=== PATIENT | male | born 1970 | race Caucasian/White ===

== ENCOUNTER → 2019-11-15 08:49 | Outpatient (BNVA) | payer OTHER, SELFPAY | PROVIDERS: Family Provider Nurse Practitioner Family; PCP Internal Medicine; Visit Provider Nurse Practitioner Family | DX: E88.9 Metabolic disorder, unspecified (principal); K92.1 Melena | CPT/HCPCS: 80053; 80061 ==

== ENCOUNTER 2019-11-16 08:37 | Day surgery (SDC) | payer OTHER, SELFPAY ==
[2019-11-15 10:48] VITALS: BMI 32.8
[2019-11-15 10:49] VITALS: BMI 31.8
[2019-11-16 08:53] VITALS: BMI 33.0
[2019-11-16 09:00] VITALS: BP 140/72; PULSE 74; RESP 16; TEMP 36.8; O2SAT 97
--- NOTE | 2019-11-16 09:06 | ANES.PREANES ---
Pre-Anesthetic Assessment Pre-Anesthetic Assessment: Height/Weight: Height 1.88 m Weight 116.573 kg Temp Pulse Resp BP Pulse Ox 98.2 F 74 16 140/72 97 11/16/19 09:00 11/16/19 09:00 11/16/19 09:00 11/16/19 09:00 11/16/19 09:00 Preop Diagnosis: hematachezia Proposed Procedure: Operation Date: 11/16/19 09:45 Proposed Procedures p Colonoscopy(Not Applicable) - David Stallworth MD Was Beta Nic taken within 24 hours: N/A Last intake: Intake Last Liquid Date 11/15/19 Last Liquid Time 22:00 Last Solid Date 11/14/19 Last Solid Time 21:30 Last Intake: 22:00 Social: Social History: No alcohol and No tobacco Exam: Pre-Anes Outpt Exam: alert, oriented x 3, clear to auscultation bilaterally and regular rate & rhythm Airway: Submandibular: WNL Cervical ROM: WNL MP: 1 Dentition: False (upper) Pulmonary: Pulmonary: Asthma Comments: breathing good today CV/HEM: CV/HEM: HTN and Murmur : : None reported Hepatic: Hepatic: None reported GI: GI: GERD Metabolic: Metabolic: None reported Musc/skel: Musc/skel: Lower Back Pain and OA/DJD Neuropsych: Neuropsych: Anxiety Anesthetic Plan: ASA status: II Anesthesia: Anesthesia Evaluation and MAC Risk of > 500 ml blood loss (7ml/kg in children): No PFSH Anesthesia PFSH: Surgical History (Updated 11/06/19 @ 15:13 by David Stallworth MD) H/O varicose vein stripping (Acute) Status post endovenous radiofrequency ablation (RFA) of saphenous vein (Acute) Social History Smoking and tobacco status: never smoked Alcohol intake: never Household members: spouse Housing: House Marital status: Current occupational status: employed Data Anesthesia Cardiac Studies: No Data to Display
[2019-11-16] MEDS: sodium chloride 0.9% 1,000 ML 30 ML (09:07)
--- NOTE | 2019-11-16 09:30 | PM.HPUD ---
H&P update H&P Update: DATE OF SURGERY/PROCEDURE: 11/16/19 DATE H&P PERFORMED: 11/06/19 H&P UPDATE INFORMATION: H&P completed within last 30 days, No changes to prior documentation and H&P is in [facility] [place] [facility] EMR on date indicated PLANNED PROCEDURE: Operation Date: 11/16/19 09:45 Proposed Procedures p Colonoscopy(Not Applicable) - David Stallworth MD Full H&P Perinent History: Family History: Family History (Updated 10/23/19 @ 13:04 by Debby Lamas LPN) Other Diabetes Heart disease Hypertension Social History: Social History Smoking and tobacco status: never smoked Alcohol intake: never Household members: spouse Housing: House Marital status: Current occupational status: employed
[2019-11-16 09:59] VITALS: BP 131/95; PULSE 86; RESP 18; TEMP 37.1; O2SAT 98
--- NOTE | 2019-11-16 10:01 | ANE.PACU ---
 Inpatient post-anesthesia follow up: Airway intact: Yes Vital signs: Temperature 98.2 F Pulse Rate [Apical ] 74 Respiratory Rate 16 Blood Pressure [Le ft Arm] 140/72 Pulse Oximetry 97 Oxygen Delivery Me thod Oxygen Flow Rate Fraction of Inspir ed Oxygen Hydration adequate: Yes Nausea and vomiting: No Pain level: 1 Mental status: Baseline
[2019-11-16 10:10] VITALS: BP 114/89; PULSE 79; RESP 18; O2SAT 96
== END 2019-11-16 10:35 | disposition home or self-care (01) ==
PROVIDERS: Family Provider Nurse Practitioner Family; PCP Internal Medicine; Visit Provider Internal Medicine
PROC: 0DJD8ZZ Inspection of Lower Intestinal Tract, Via Natural or Artificial Opening Endoscopic (ICD-10-PCS; CPT 45378; principal; 2019-11-16 09:45)
DX: K92.1 Melena (principal); K57.30 Diverticulosis of large intestine without perforation or abscess without bleeding; Z82.49 Family history of ischemic heart disease and other diseases of the circulatory system
CPT/HCPCS: 12345; 45378; 96365; J2704; J7030

== ENCOUNTER → 2019-12-27 13:39 | Outpatient (BNVA) | payer OTHER, SELFPAY | PROVIDERS: Family Provider Nurse Practitioner Family; PCP Internal Medicine; Visit Provider Nurse Practitioner Family | DX: I10 Essential (primary) hypertension (principal); E78.2 Mixed hyperlipidemia; R73.9 Hyperglycemia, unspecified; J45.20 Mild intermittent asthma, uncomplicated; J30.89 Other allergic rhinitis; E78.5 Hyperlipidemia, unspecified; M19.029 Primary osteoarthritis, unspecified elbow | CPT/HCPCS: 80053; 80061; 83036; 85025 ==

== ENCOUNTER → 2020-02-12 14:24 | Outpatient (BNVA) | payer OTHER, SELFPAY | PROVIDERS: Family Provider Nurse Practitioner Family; PCP Internal Medicine; Visit Provider Nurse Practitioner | DX: R19.7 Diarrhea, unspecified (principal) | CPT/HCPCS: 81000; 85025 ==

== ENCOUNTER → 2020-06-06 08:23 | Outpatient (BNVA) | payer OTHER, SELFPAY | PROVIDERS: Family Provider Nurse Practitioner Family; PCP Internal Medicine; Visit Provider Nurse Practitioner Family | DX: E78.2 Mixed hyperlipidemia (principal); I10 Essential (primary) hypertension | CPT/HCPCS: 80053; 80061; 85025 ==

== ENCOUNTER → 2020-07-17 11:15 | Outpatient (BNVA) | payer OTHER, SELFPAY | PROVIDERS: Family Provider Nurse Practitioner Family; PCP Internal Medicine; Visit Provider Nurse Practitioner Family | DX: Z20.828 Contact with and (suspected) exposure to other viral communicable diseases (principal) | CPT/HCPCS: 87635 ==

== ENCOUNTER → 2020-11-25 10:31 | Outpatient (BNVA) | payer OTHER, SELFPAY | PROVIDERS: Family Provider Nurse Practitioner Family; PCP Internal Medicine; Visit Provider Nurse Practitioner Family | DX: R07.9 Chest pain, unspecified (principal); G47.10 Hypersomnia, unspecified | CPT/HCPCS: 71046; 80053; 84484; 85025 ==

== ENCOUNTER 2020-12-31 08:06 | Outpatient (CLI) | payer OTHER, SELFPAY ==
[2020-12-31 08:28] VITALS: BMI 32.1
--- NOTE | 2020-12-31 08:42 | ECG_ITS ---
[facility] Test Date: 2020-12-31 Pat Name: Andre Cook Department: Room: Gender: Male Page Designer: : 1970 Requested By: Darryl Miller Order Number: [id number] Jose MD: Darryl Miller M.D. Interpretive Statements NAME OF STUDY: LEXISCAN SESTAMIBI STRESS TEST INDICATION: [Chest Pain; Pre Operative Clearance for Surgery] Procedure: At the baseline, the blood pressure was 145/92 mmHg, with a heart rate of 66 bpm. The electrocardiogram showed normal sinus rhythm, normal with normal ST and T waves. The Lexiscan was infused over a duration of 20 seconds. A total of 0.4 mg of Lexiscan was infused. The stress phase was continued for a total of 5 minutes. Heart rate at the end of stress phase was 92 bpm with a blood pressure 144/84mmHg. The EKG at the peak infusion revealed sinus rhythm with no significant ST-T wave changes. Sestamibi was injected 20 seconds after Lexiscan infusion. Blood pressure at the end of the recovery phase was 137/78 mmHg with a heart rate of 83 bpm. Conclusion: 1. Normal EKG response to Lexiscan infusion. 2. No Lexiscan induced chest pain or cardiac arrhythmia. 3. Normal blood pressure and heart rate response. 4. Sestamibi/sestamibi perfusion scan pending; see separate report. Electronically Signed On 01-04-2021 17:33:44 CDT by Darryl Miller M.D. [id number]
--- NOTE | 2020-12-31 08:43 | NMCV_ITS ---
NM malissa perf SPECT r/s* [id number] Joey Andre Age: 50 Gender: M : 1970 Exam Date: 12/31/2020 08:43 Ordering Phys: Darryl Miller M.D ([email or web address]) Technologist: JORGE LUIS Cox Exam Location: [facility] Indications: CHEST PAIN/ PRE OP SURGERY CLEARANCE STRESS TEST Please see separate stress test report in Ephiphany for full findings IMAGE PROTOCOL Rest/Stress 1 Lexiscan Day Radiopharmaceutical Dose (mCi) Administration Site Administered by Rest: Tc-99m 10.8 IV JORGE LUIS Cox Sestamibi Stress:Tc-99m 32.9 IV JORGE LUIS Kraus Sestamibi Rest: 31-Dec-2020 60 Discovery 630 Stress: 31-Dec-2020 30 Discovery 630 0.4mg Lexiscan. Images obtained in supine and prone position. SPECT RESULTS Technical Quality: Excellent Raw Data Analysis: Normal Image Corrections: No attenuation or motion correction applied Summed Stress Score: 0 Summed Rest Score: 5 Summed Difference Score: 0 PERFUSION FINDINGS There is reduced radiotracer uptake in apical wall on rest images that improves with stress. Likely attenuation artifact. FUNCTIONAL RESULTS (calculated via Gated SPECT) Stress Image LV EF (%): 70 Stress EDV (mL):153 TID: 1.07 Stress ESV (mL):46 FUNCTIONAL FINDINGS: There is normal left ventricular systolic function. IMPRESSIONS 1. Normal myocardial perfusion imaging. There is an attenuation artifact in the apical region 2. Normal LV systolic function Darryl Miller MD (Electronically Signed) Final Date: 31 December 2020 12:52 S
--- NOTE | 2020-12-31 10:00 | SUR.PREOP ---
Patient reports no pain or discomfort prior to the start of the procedure.
[2020-12-31] MEDS: regadenoson 0.4 Mg/5 ml Syringe IVP (10:10)
[2020-12-31 10:26] VITALS: BP 137/78; PULSE 80
--- NOTE | 2020-12-31 10:27 | ECG_ITS ---
[facility] Test Date: 2020-12-31 Pat Name: Andre Cook Department: Room: Gender: Male Director Emergency Services: : 1970 Requested By: Jerry Shabazz Order Number: [id number] Jose MD: Nancy Katz M.D. Measurements Intervals [place] Rate: 77 P: 51 TX: 167 QRS: 46 QRSD: 96 T: 63 QT: 387 QTc: 440 Interpretive Statements SINUS RHYTHM No previous ECG available for comparison Electronically Signed On 12-31-2020 19:00:48 KINDERGARTEN TEACHER by Nancy Katz M.D. [id number]
== END 2020-12-31 08:07 | disposition home or self-care (01) ==
LOC: CDL 08:08
PROVIDERS: Family Provider Nurse Practitioner Family; PCP Nurse Practitioner Family; Visit Provider Internal Medicine
DX: R07.9 Chest pain, unspecified (principal)
CPT/HCPCS: 78452; 93005; 93017; A9500; J2785

== ENCOUNTER → 2021-01-15 08:10 | Outpatient (BNVA) | payer OTHER, SELFPAY | PROVIDERS: Family Provider Nurse Practitioner Family; PCP Nurse Practitioner Family; Visit Provider Nurse Practitioner Family | DX: I10 Essential (primary) hypertension (principal); R73.9 Hyperglycemia, unspecified; E78.2 Mixed hyperlipidemia | CPT/HCPCS: 80053; 80061; 83036; 84443; 85025 ==

== ENCOUNTER 2021-01-27 15:00 | Outpatient (CLI) | payer OTHER, SELFPAY ==
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
== END 2021-01-27 15:01 | disposition home or self-care (01) ==
PROVIDERS: PCP Nurse Practitioner Family; Visit Provider Nurse Practitioner Family
DX: M79.605 Pain in left leg (principal); L53.9 Erythematous condition, unspecified; M79.89 Other specified soft tissue disorders
CPT/HCPCS: 73590; 93971

== ENCOUNTER 2021-02-17 09:23 | Outpatient (RCR) | payer OTHER, SELFPAY | END 2021-02-20 23:59 | disposition home or self-care (01) | LOC: SOT 09:23 | PROVIDERS: PCP Nurse Practitioner Family; Referring Provider Orthopaedic Surgery; Visit Provider Orthopaedic Surgery | DX: Z47.89 Encounter for other orthopedic aftercare (principal) | CPT/HCPCS: 97110; 97166 ==

== ENCOUNTER 2021-02-21 06:00 | Outpatient (RCR) | payer OTHER, SELFPAY | END 2021-03-23 23:59 | disposition home or self-care (01) | LOC: SOT 06:00 | PROVIDERS: PCP Nurse Practitioner Family; Referring Provider Orthopaedic Surgery; Visit Provider Orthopaedic Surgery | DX: Z47.89 Encounter for other orthopedic aftercare (principal) | CPT/HCPCS: 97035; 97110; 97140 ==

== ENCOUNTER 2021-03-24 06:00 | Outpatient (RCR) | payer OTHER, SELFPAY | END 2021-04-22 23:59 | disposition home or self-care (01) | LOC: SOT 06:00 | PROVIDERS: PCP Nurse Practitioner Family; Referring Provider Orthopaedic Surgery; Visit Provider Orthopaedic Surgery | DX: Z47.89 Encounter for other orthopedic aftercare (principal) | CPT/HCPCS: 97110; 97140; 97168 ==

== ENCOUNTER → 2021-04-06 15:09 | Outpatient (BNVA) | payer OTHER, SELFPAY | PROVIDERS: PCP Nurse Practitioner Family; Visit Provider Nurse Practitioner Family | DX: R50.9 Fever, unspecified (principal); Z20.822 Contact with and (suspected) exposure to COVID-19; J06.9 Acute upper respiratory infection, unspecified | CPT/HCPCS: 87400; 87635 ==

== ENCOUNTER 2021-04-09 13:59 | Emergency (ER) | payer OTHER, SELFPAY ==
[2021-04-09 14:14] VITALS: BP 118/56; PULSE 114; RESP 20; TEMP 38.7; O2SAT 96; BMI 33.3
--- NOTE | 2021-04-09 14:16 | XR_ITS ---
WS: [id number] Exam: XR chest 1V portable [id number] Date/Time of Exam: 04/09/2021 2:17 PM Reason For Exam: cough, fever, COVID + Comparison 11/25/2020. The lungs are fully expanded and clear. Normal cardiomediastinal structures and regional bony element s. Calcified granulomas scattered throughout both lungs. No pleural effusion. XR/XR chest 1V portable [id number] IMPRESSION: 1. No acute cardiopulmonary finding. No change.
[2021-04-09] MEDS: sodium chloride 0.9% 1,000 ML 999 ML IV (14:32)
[2021-04-09] MEDS: acetaminophen 500 mg Tablet 1000 MG PO (14:35)
[2021-04-09 14:55] LABS: Basophils % 0.1 %; Eosinophils % 0.1 %; Hematocrit 41.7 % (42.0-52.0); Hemoglobin 13.7 g/dL (11.7-16.6); Lymphocytes # 0.9 10^3/uL (0.8-4.8); Lymphocytes % 12.9 %; Mean Corpuscular HGB Conc 32.9 g/dL (30.0-36.0); Mean Corpuscular Hemoglobin 31.2 pg (28.0-34.0); Mean Platelet Volume 9.5 fL (7.4-10.4); Monocytes # 0.4 10^3/uL (0.2-0.9); Monocytes % 5.5 %; Neutrophils % 80.8 %; Nucleated Red Blood Cells % 0 %; Platelet Count 151 10^3/cmm (130-400); Red Blood Count 4.39 10^6/uL (4.1-5.3); Red Cell Distribution Width 12.4 % (12.1-15.1); White Blood Count 7.1 10^3/uL (4.0-10.0)
[2021-04-09 15:05] VITALS: RESP 24
[2021-04-09 15:09] VITALS: O2SAT 95
[2021-04-09 15:26] LABS: Alanine Aminotransferase 60 U/L (0-41); Albumin Level 3.5 g/dL (3.5-5.2); Alkaline Phosphatase 56 IU/L (40-130); Anion Gap 14.2 (5-19); Aspartate Amino Transferase 61 U/L (0-40); Blood Urea Nitrogen 8 mg/dL (6-20); C Reactive Protein 83.4 mg/L (0.0-4.9); Calcium 7.9 mg/dL (8.5-10.5); Carbon Dioxide 25 mmol/L (22-29); Chloride 102 mmol/L (98-107); Globulin 2.7 g/dL (1.3-4.6); Glomerular Filtration Rate 119.9 mL/min (90-130); Glucose 96 mg/dL (65-115); Osmolality Calculated 282 mOsm/kg (285-295); Potassium 4.2 mmol/L (3.5-5.1); Sodium 137 mmol/L (136-145); Total Bilirubin 0.6 mg/dL (0.15-1.2); Total Protein 6.2 g/dL (6.6-8.7)
[2021-04-09 15:27] LABS: Lactic Sepsis W/Reflex 1.6 mmol/L (0.5-2.2)
[2021-04-09 15:33] LABS: Procalcitonin 0.05 ng/mL (0-0.5)
[2021-04-09 15:40] LABS: Ferritin 1755 ng/mL (30-400)
[2021-04-09 16:05] VITALS: BP 112/80; PULSE 98; O2SAT 96
[2021-04-09 17:00] VITALS: BP 112/64; PULSE 101; RESP 15; O2SAT 100
[2021-04-09 17:06] LABS: D Dimer 0.69 ug/mIFEU (0-0.59)
--- NOTE | 2021-04-09 17:12 | W.ED.COVID ---
HPI - COVID General: Chief Complaint: COVID symptoms Stated Complaint: COVID POSITIVE/ FEVER Time Seen by Provider: 04/09/21 14:03 Source: patient Mode of arrival: EMS Limitations: no limitations Triage information: Has fever, cough or shortness of breath. Exposure to COVID + person last 14 days History of Present Illness: HPI Narrative: Patient is a 51-year-old male with a history of hypertension who presents to the emergency department with a 5-day history of fever, cough, and mild shortness of breath. 4 days ago he got tested for COVID-19 and he received the results that showed he tested positive. He denies any nausea or vomiting. He has been using his albuterol and he says that helps. Appetite is only mildly reduced and he is still eating. MD complaint: known COVID positive Prior covid testing: yes, results known Prior testing date: 04/06/21 COVID 19 common symptoms: positive fever(s), cough, non-productive cough, dyspnea, loss of sense of smell and/or taste and nasal congestion; negative chills, productive cough, fatigue, body aches, headache(s), throat pain, nausea, vomiting or diarrhea COVID 19 other sytmptoms: negative chest pressure, chest pain, pleuritic pain, requiring oxygen, requiring more oxygen, respiratory distress, cyanosis, lethargy, confusion, new neurological complaints or other concerning symptoms Onset (ago): day(s) (5) Severity: mild Pertinent comorbid conditions: hypertension Treatment prior to arrival: breathing treatments COVID Results: SARS-CoV-2 RNA (RT-PCR) Detected (NOT DETECTED) A 04/06/21 15:09 04/06/21 Review of Systems General: Reports: 10 or more systems reviewed and unremarkable except in HPI and below Const: Reports: fever(s); Denies: chills, body aches or fatigue ENMT: Reports: nasal congestion; Denies: throat pain Card: Denies: chest pain Resp: Reports: dyspnea and non-productive cough; Denies: productive cough GI: Denies: nausea, vomiting or diarrhea Neuro: Denies: headache(s) or confusion PFS ED PFSH: Medical History (Reviewed 04/09/21 @ 23:19 by Papi Cornejo MD, [facility]) Cervical spinal stenosis Diverticulitis Elbow arthritis Environmental and seasonal allergies Essential (primary) hypertension GERD (gastroesophageal reflux disease) Hyperlipidemia Lumbar disc disease with radiculopathy Mild intermittent asthma Surgical History (Reviewed 04/09/21 @ 23:19 by Papi Cornejo MD, [facility]) H/O oral surgery H/O varicose vein stripping History of ankle surgery S/P vasectomy Status post endovenous radiofrequency ablation (RFA) of saphenous vein Family History (Reviewed 04/09/21 @ 23:19 by Papi Cornejo MD, [facility]) Other Diabetes Heart disease Hypertension Social History (Reviewed 04/09/21 @ 23:19 by Papi Cornejo MD, [facility] [place]) Smoking and tobacco status: never smoked Alcohol intake: never Adopted: No Household members: spouse Housing: House Marital status: Number of children: 2 Highest education level completed: High School Graduate Current occupational status: employed Pets and animals: Yes History of recent travel: No Current gender identity: Male Physical Exam Const: COMMON NORMALS: no acute distress, average body habitus, patient oriented x3, no limitations, healthy appearing, alert and well nourished HENMT: COMMON NORMALS: normocephalic, atraumatic and moist oral mucous membranes HEAD & SCALP: normocephalic and atraumatic Eye: COMMON NORMALS: Equal, round and reactive pupils present, EOMs intact bilaterally, conjunctivae normal and no scleral icterus CONJUNCTIVA: Yes conjunctivae normal PUPIL: Yes Equal, round and reactive pupils present Neck/C-Spine: COMMON NORMALS: no meningeal signs and no JVD Chest: COMMONS NORMALS: normal inspection of the chest and normal palpation of entire chest wall Resp: COMMON NORMALS: normal respiratory effort, No retractions, No use of accessory muscles, clear to auscultation bilaterally and percussion normal AUSCULTATION: clear to auscultation bilaterally PERCUSSION: percussion normal Cardio: COMMON NORMALS: no JVD, regular rhythm, S1 normal heart sound present, S2 normal heart sound present, No gallops present (Cardio), No clicks present (Cardio), No murmurs present (Cardio), No rub (Cardio) and Peripheral pulses 2+ throughout RATE: tachycardic RHYTHM: regular rhythm HEART SOUNDS: S1 normal heart sound present and S2 normal heart sound present PERIPHERAL PULSES: Peripheral pulses 2+ throughout GI: COMMON NORMALS: Normal to inspection, nondistended, normoactive bowel sounds present, Soft to palpation, non-tender, No hepatosplenomegaly present, no masses and no bruits PALPATION: Yes Soft to palpation and Yes No hepatosplenomegaly present Extremity: COMMON NORMALS: normal to inspection, full ROM, capillary refill normal, no calf tenderness and no pedal edema Neuro: COMMON NORMALS: patient oriented x3 SENSORIUM/ORIENTATION: Yes alert MENINGEAL SIGNS: Yes no meningeal signs Skin: COMMON NORMALS: no rashes or lesions noted, no wounds, turgor normal, no jaundice, no petechiae and no mottling GENERAL SKIN EXAM: no rashes or lesions noted and turgor normal Course Reevaluation(s): Reevaluation #1: Discussed his lab and imaging findings with him. Labs unremarkable, white cell count is normal, D-dimer only mildly elevated, ferritin level is elevated, chest x-ray without any significant findings. Oxygen saturation has been normal throughout his ED stay and he is not requiring oxygen. He will therefore be discharged home. He does not meet the criteria for monoclonal antibody treatments. Patient is advised to be monitoring his pulse oximetry and he is to return if he has any worsening symptoms or if he is persistently hypoxic. He voiced understanding and is in agreement with the plan. Time: 17:21 Vital Signs: Vital signs: Vital Signs Temperature 101.6 F H 04/09/21 14:14 Pulse Rate 101 H 04/09/21 17:32 Respiratory Rate 15 04/09/21 17:32 Blood Pressure 112/64 04/09/21 17:32 Pulse Oximetry 100 04/09/21 17:32 MDM - COVID MDM Narrative: Medical decision making narrative: 51-year-old male who tested positive for COVID-19 4 days ago. His symptoms started 1 day before that. Evaluation in the emergency department is unremarkable and he has no signs of decompensation. Oxygen saturation has been normal, he is not requiring oxygen supplementation. He does not meet criteria for monoclonal antibody treatments. He is discharged home with a pulse oximeter but no medications. He is to return for any worsening symptoms especially persistent hypoxia. Medical Records: Attestation: I reviewed the patient's medical records. Lab Data: Attestation: I reviewed the patient's lab results. Labs: Lab Results 04/09/21 04/09/2104/09/21 Range/Units 14:45 14:45 14:45 WBC 7.1 (4.0-10.0) 10^3/ uL RBC 4.39 (4.1-5.3) 10^6/u L Hgb 13.7 (11.7-16.6) g/dL Hct 41.7 L (42.0-52.0) % MCV 95.0 H (80-94) fL MCH 31.2 (28.0-34.0) pg MCHC 32.9 (30.0-36.0) g/dL RDW 12.4 (12.1-15.1) % Plt Count 151 (130-400) 10^3/c mm MPV 9.5 (7.4-10.4) fL Neut % (Auto) 80.8 % Lymph % (Auto) 12.9 % [place] % (Auto) 5.5 % Eos % (Auto) 0.1 % Baso % (Auto) 0.1 % Neut # (Auto) 5.70 (1.8-7.7) 10^3/u L Lymph # (Auto) 0.9 (0.8-4.8) 10^3/u L [place] # (Auto) 0.4 (0.2-0.9) 10^3/u L Eos # (Auto) 0.0 (0.0-0.8) 10^3/u L Baso # (Auto) 0.0 (0.0-0.1) 10^3/u L Nucleated RBC % (a uto) 0 % Nucleated RBCs # 0.0 /100WBC D-Dimer (0-0.59) ug/mIFE U Sodium 137 (136-145) mmol/L Potassium 4.2 (3.5-5.1) mmol/L Chloride 102 (98-107) mmol/L Carbon Dioxide 25 (22-29) mmol/L Anion Gap 14.2 (5-19) BUN 8 (6-20) mg/dL Creatinine 0.7 (0.7-1.2) mg/dL GFR Calculation 119.9 (90-130) mL/min Glucose 96 (65-115) mg/dL Calculated Osmolal ity 282 L (285-295) mOsm/k g Lactic Acid 1.6 (0.5-2.2) mmol/L Calcium 7.9 L (8.5-10.5) mg/dL Ferritin 1755 H (30-400) ng/mL Total Bilirubin 0.6 (0.15-1.2) mg/dL AST 61 H (0-40) U/L ALT 60 H (0-41) U/L Alkaline Phosphata se 56 (40-130) IU/L C-Reactive Protein 83.4 H (0.0-4.9) mg/L Total Protein 6.2 L (6.6-8.7) g/dL Albumin 3.5 (3.5-5.2) g/dL Globulin 2.7 (1.3-4.6) g/dL Procalcitonin 0.05 (0-0.5) ng/mL 04/09/21 Range/Units 16:13 WBC (4.0-10.0) 10^3/ uL RBC (4.1-5.3) 10^6/u L Hgb (11.7-16.6) g/dL Hct (42.0-52.0) % MCV (80-94) fL MCH (28.0-34.0) pg MCHC (30.0-36.0) g/dL RDW (12.1-15.1) % Plt Count (130-400) 10^3/c mm MPV (7.4-10.4) fL Neut % (Auto) % Lymph % (Auto) % [place] % (Auto) % Eos % (Auto) % Baso % (Auto) % Neut # (Auto) (1.8-7.7) 10^3/u L Lymph # (Auto) (0.8-4.8) 10^3/u L [place] # (Auto) (0.2-0.9) 10^3/u L Eos # (Auto) (0.0-0.8) 10^3/u L Baso # (Auto) (0.0-0.1) 10^3/u L Nucleated RBC % (a uto) % Nucleated RBCs # /100WBC D-Dimer 0.69 H (0-0.59) ug/mIFE U Sodium (136-145) mmol/L Potassium (3.5-5.1) mmol/L Chloride (98-107) mmol/L Carbon Dioxide (22-29) mmol/L Anion Gap (5-19) BUN (6-20) mg/dL Creatinine (0.7-1.2) mg/dL GFR Calculation (90-130) mL/min Glucose (65-115) mg/dL Calculated Osmolal ity (285-295) mOsm/k g Lactic Acid (0.5-2.2) mmol/L Calcium (8.5-10.5) mg/dL Ferritin (30-400) ng/mL Total Bilirubin (0.15-1.2) mg/dL AST (0-40) U/L ALT (0-41) U/L Alkaline Phosphata se (40-130) IU/L C-Reactive Protein (0.0-4.9) mg/L Total Protein (6.6-8.7) g/dL Albumin (3.5-5.2) g/dL Globulin (1.3-4.6) g/dL Procalcitonin (0-0.5) ng/mL Imaging Data: CXR: Attestation: I personally reviewed and interpreted this imaging study as follows: Radiologist's impression: [address] [id number] ReportSigned Patient: Andre Cook #: [id number]: 1970Acct#:[id number]/Sex: 51 / MADM Date: 04/09/21Loc: ERRoom/Bed:Attending Dr: Ordering Provider/Ordering MD: Papi Cornejo MD, [facility] [place] Date of Service: 04/09/21 Procedure(s): XR chest 1V portable [id number] Accession Number(s): [id number] Report Number: [id number] WS: [id number] Exam: XR chest 1V portable [id number] Date/Time of Exam: 04/09/2021 2:17 PM Reason For Exam: cough, fever, COVID + Comparison 11/25/2020. The lungs are fully expanded and clear. Normal cardiomediastinal structures and regional bony elements. Calcified granulomas scattered throughout both lungs. No pleural effusion. XR/XR chest 1V portable [id number] IMPRESSION: 1. No acute cardiopulmonary finding. No change. Dictated By:Kenan Macias, DOSigned By:Kenan Macias, DOSigned Date/Time:04/09/21 1437DD/ 1436 COVID Results: SARS-CoV-2 RNA (RT-PCR) Detected (NOT DETECTED) A 04/06/21 15:09 04/06/21 Discharge Plan Discharge Patient Disposition: Home Clinical Impression: COVID-19 Condition: Stable Prescriptions: Continued montelukast [Singulair] 10 mg tablet 10 mg PO DAILY 30 Days Qty: 30 RF: 5 meloxicam 15 mg tablet 15 mg PO DAILY 30 Days Qty: 30 RF: 5 irbesartan 150 mg tablet 150 mg PO DAILY 30 Days Qty: 30 RF: 5 cetirizine [Zyrtec] 10 mg tablet 10 mg PO DAILY 30 Days Qty: 30 RF: 5 Symbicort 160-4.5 mcg/actuation HFA aerosol inhaler 2 puff INHALATION BID 30 Days Qty: 6 RF: 5 atorvastatin [Lipitor] 10 mg tablet 10 mg PO DAILY 30 Days Qty: 30 RF: 5 albuterol sulfate [ProAir HFA] 90 mcg/actuation HFA aerosol inhaler 2 puff INHALATION Q6H PRN (Reason: Shortness Of Breath) 30 Days Qty: 6.7 RF: 5 albuterol sulfate 2.5 mg /3 mL (0.083 %) solution for nebulization 2.5 mg INHALATION Q4H PRN (Reason: shortness of breath or wheezing) 30 Days Qty: 75 RF: 5 Prilosec OTC 20 mg tablet,delayed release (DR/EC) 20 mg PO DAILY RF: 0 loperamide 2 mg capsule 2 mg PO Q3H PRN (Reason: loose stool) Qty: 8 RF: 0 nitroglycerin 0.4 mg tablet, sublingual 0.4 mg sublingual Q5M PRN (Reason: chest pain) 30 Days Qty: 30 RF: 2 promethazine-DM 6.25-15 mg/5 mL syrup 5 ml PO Q6H PRN (Reason: cough) Qty: 118 RF: 0 Theraflu Cold-Cough See Rx Instructions .ROUTE .COMPLEX RF: 0 multivitamin 1 tab PO DAILY RF: 0 Discharge Orders: Discharge ED (Routine); Ordered 04/09/21 Ordered By: Papi Cornejo Referrals: Kerline Delgado FNP-C [Primary Care Provider] - 1-3 days Discharge Diet: Usual diet Discharge Activity: Increase activity as tolerated Patient Instructions: Viral Syndrome (ED) Activity Restrictions/Additional Instructions: Return for any new or worsening symptoms. Follow-up with your primary care provider within 3 days. He should follow-up by telemedicine. He needs to quarantine for 10 days from symptom onset. If you feel worsening shortness of breath or if your oxygen levels fall below 90% please return to be evaluated. Continue home medications. Coding Level of Care Code ED Supplier Quality Manager for Nithya Calhoun
[2021-04-09 17:32] VITALS: BP 112/64; PULSE 101; RESP 15; O2SAT 100
== END 2021-04-09 17:33 | disposition home or self-care (01) ==
PROVIDERS: Emergency Provider Family Medicine; PCP Nurse Practitioner Family
DX: U07.1 COVID-19 (principal); I10 Essential (primary) hypertension; E78.5 Hyperlipidemia, unspecified
CPT/HCPCS: 71045; 80053; 82728; 83605; 84145; 85025; 85378; 86140; 96360; 99284; J7030

== ENCOUNTER 2021-04-11 13:40 | Inpatient (IN) | payer OTHER, SELFPAY ==
[2021-04-11] VITALS (75 sets, daily range): BP systolic 107–151; BP diastolic 61–104; PULSE 86–119; RESP 15–62; TEMP 37.3; O2SAT 82–96; BMI 33.3
--- NOTE | 2021-04-11 14:08 | XRR_ITS ---
PROCEDURE INFORMATION: Exam: XR Chest Exam date and time: 04/11/2021 2:08 PM Age: 51 years old Clinical indication: Shortness of breath; Additional info: SOB, hypoxia, covid positive TECHNIQUE: Imaging protocol: XR of the chest. Views: 1 view. COMPARISON: CR XR chest 1V portable [id number] 04/09/2021 2:20 PM FINDINGS: Lungs: Bilateral patchy pulmonary opacities. There are pulmonary parenchymal calcifications consistent with remote granulomatous organism exposure. Pleural spaces: Unremarkable. No pleural effusion. No pneumothorax. Heart/Mediastinum: Unremarkable. No cardiomegaly. Bones/joints: Unremarkable. XR/XR chest 1V portable [id number] IMPRESSION: There are bilateral patchy pulmonary opacities, consistent with pneumonia.
[2021-04-11] MEDS: dexamethasone 4 mg/mL INJ 6 MG IVP ×2 (14:15→19:58)
[2021-04-11 14:24] LABS: ABG PCO2 32.5 mmHg (35-45); ABG PH Result 7.48 (7.35-7.45); Arterial Blood Gas Hematocrit 42.4 % (42-52); Base Excess ABG 0.9 mmol/L (-2.0-2.0); Blood Gas Allen Test Pos; Blood Gas Sample Type Arterial; HCO3 ABG 23.9 mmol/L (22-26); PO2 ABG 46.6 mmHg (80.0-100.0)
[2021-04-11 14:25] LABS: Blood Gas Operator Identificat CAK; Blood Gas Sample Site Radial, left; Oxygen Device NC
[2021-04-11 15:15] LABS: D Dimer 2.01 ug/mIFEU (0-0.59)
--- NOTE | 2021-04-11 15:29 | CTR_ITS ---
PROCEDURE INFORMATION: Exam: CTA Chest With Contrast Exam date and time: 04/11/2021 3:29 PM Age: 51 years old Clinical indication: Shortness of breath; Additional info: Hypoxia, SOB, covid TECHNIQUE: Imaging protocol: Computed tomographic angiography of the chest with contrast. 3D rendering (Not supervised by radiologist): MIP and/or 3D reconstructed images were created by the technologist. Radiation optimization: All CT scans at this facility use at least one of these dose optimization techniques: automated exposure control; mA and/or kV adjustment per patient size (includes targeted exams where dose is matched to clinical indication); or iterative reconstruction. Contrast material: OMNIPAQUE 350; Contrast volume: 77 ml; Contrast route: INTRAVENOUS (IV); COMPARISON: CT chest w con* [id number] 01/04/2018 7:09 PM RADIATION DOSE METRICS: Total DLP (mGy-cm): 615.51 FINDINGS: Pulmonary arteries: Normal. No pulmonary emboli. Aorta: Unremarkable. No aortic aneurysm. No aortic dissection. Lungs: Fairly widespread ground-glass attenuation opacities filling alveolar spaces bilaterally. Small scattered areas of pulmonary parenchymal sparing. Negative for endobronchial obstruction. Areas of crazy paving are present. No interstitial fibrosis. No peripheral honeycombing. Pleural spaces: Unremarkable. No pneumothorax. No pleural effusion. Heart: Unremarkable. No cardiomegaly. No pericardial effusion. Lymph nodes: Unremarkable. No enlarged lymph nodes. Bones/joints: Unremarkable. No acute fracture. Soft tissues: Unremarkable. CT/CT angio chest PE protcl [id number] IMPRESSION: 1. Negative for pulmonary embolism. 2. Widespread bilateral airspace disease. 3. Commonly reported imaging features of COVID-19 pneumonia are present. Other processes such as influenza pneumonia and organizing pneumonia, as can be seen with drug toxicity and connective tissue disease, can cause a similar imaging pattern. (Reference: Kentrell) REFERENCES: Kentrell Lynch, et al., Radiological Society of [place] Expert Consensus Statement on Reporting Chest CT Findings Related to COVID-19. Endorsed by the Society of Thoracic Radiology, the [place] [employer], and RSNA. Published January 16, 2020. Radiation Dose CTDIVOL = (mGy): DLP = 615.51 (mGy-cm)
[2021-04-11] MEDS: remdesivir 200 MG in sodium chloride 0.9% (100 ml) 100 ML 100 MG IV (15:30)
[2021-04-11 15:31] LABS: Lactic Sepsis W/Reflex 1.4 mmol/L (0.5-2.2)
[2021-04-11 15:41] LABS: NT Pro B Type Natriuretic Pept 173 pg/mL (0-125); Procalcitonin 0.05 ng/mL (0-0.5)
[2021-04-11 15:52] LABS: Alanine Aminotransferase 50 U/L (0-41); Albumin Level 3.2 g/dL (3.5-5.2); Alkaline Phosphatase 63 IU/L (40-130); Blood Urea Nitrogen 9 mg/dL (6-20); C Reactive Protein 171.3 mg/L (0.0-4.9); Calcium 7.7 mg/dL (8.5-10.5); Carbon Dioxide 23 mmol/L (22-29); Chloride 104 mmol/L (98-107); Globulin 3.1 g/dL (1.3-4.6); Glomerular Filtration Rate 119.9 mL/min (90-130); Glucose 116 mg/dL (65-115); Osmolality Calculated 286 mOsm/kg (285-295); Sodium 138 mmol/L (136-145); Total Protein 6.3 g/dL (6.6-8.7)
[2021-04-11 15:53] LABS: Anion Gap 15.8 (5-19); Aspartate Amino Transferase 66 U/L (0-40)
[2021-04-11 15:54] LABS: Potassium 4.8 mmol/L (3.5-5.1)
[2021-04-11 16:09] LABS: Ferritin 2387 ng/mL (30-400)
--- NOTE | 2021-04-11 16:12 | ED_ITS ---
HPI - COVID General: Chief Complaint: COVID symptoms Stated Complaint: COVID +; LOW O2 SATS Time Seen by Provider: 04/11/21 13:45 Source: patient Mode of arrival: ambulatory Limitations: no limitations Triage information: Has fever, cough or shortness of breath . Exposure to COVID + person last 14 days History of Present Illness: HPI Narrative: Patient is a 51 year old male who was recently diagnosed with COVID 19. Symptoms started about 7 days ago with fever, cough, body aches. He was seen in the ED 2 days ago, and at that time he was clinically stable, and not hypoxic and not requiring oxygen. He has been doing well until today when he developed severe shortness of breath. He therefore called for an ambulance and when the EMS crew arrived he was hypoxic and required oxygen at 4 lpm. In the ED he was about 84 % on 4 lpm and he was placed on 6 lpm. He continues to be short of breath, febrile, has body aches and feels very unwel ileana DEUTSCH complaint: known COVID positive Prior covid testing: yes, results known COVID 19 common symptoms: positive fever(s), chills, cough, dyspnea, body aches, loss of sense of smell and/or taste and nasal congestion COVID 19 other sytmptoms: positive requiring oxygen Onset (ago): week(s) (1) Severity: severe Pertinent comorbid conditions: hypertension COVID Results: SARS-CoV-2 RNA (RT-PCR) Detected (NOT DETECTED) A 04/06/21 15:09 04/06/21 Review of Systems General: Reports: 10 or more systems reviewed and unremarkable except in HPI and below Const: Reports: fever(s), chills and body aches ENMT: Reports: nasal congestion Resp: Reports: dyspnea [facility] ED PFSH: Medical History (Updated 04/12/21 @ 00:57 by Papi Cornejo MD, [facility] [place]) Acute carpal tunnel syndrome of left wrist Cervical spinal stenosis Diverticulitis Elbow arthritis Environmental and seasonal allergies Essential (primary) hypertension GERD (gastroesophageal reflux disease) Hyperlipidemia Hypertension Left inguinal hernia Lumbar disc disease with radiculopathy Mild intermittent asthma Surgical History (Updated 04/11/21 @ 17:34 by Osmar Stout MD) H/O oral surgery H/O varicose vein stripping History of ankle surgery History of decompression of ulnar nerve Hx of carpal tunnel repair S/P vasectomy Status post endovenous radiofrequency ablation (RFA) of saphenous vein Family History Other Diabetes Heart disease Hypertension Social History Smoking and tobacco status: never smoked Alcohol intake: never Adopted: No Household members: spouse Housing: House Marital status: Number of children: 2 Highest education level completed: High School Graduate Current occupational status: employed Pets and animals: Yes History of recent travel: No Current gender identity: Male Physical Exam Const: COMMON NORMALS: no acute distress, average body habitus, patient oriented x3, no limitations, healthy appearing, alert and well nourished HENMT: COMMON NORMALS: normocephalic, atraumatic and moist oral mucous membranes HEAD & SCALP: normocephalic and atraumatic Neck/C-Spine: COMMON NORMALS: no meningeal signs and no JVD Resp: COMMON NORMALS: normal respiratory effort, No retractions, No use of accessory muscles and percussion normal AUSCULTATION: rales and diminished lung sounds PERCUSSION: percussion normal Cardio: COMMON NORMALS: no JVD, regular rate, regular rhythm, S1 normal heart sound present, S2 normal heart sound present, No gallops present (Cardio), No clicks present (Cardio), No murmurs present (Cardio), No rub (Cardio) and Peripheral pulses 2+ throughout RATE: regular rate RHYTHM: regular rhythm HEART SOUNDS: S1 normal heart sound present and S2 normal heart sound present PERIPHERAL PULSES: Peripheral pulses 2+ throughout GI: COMMON NORMALS: Normal to inspection, nondistended, normoactive bowel sounds present, Soft to palpation, non-tender, No hepatosplenomegaly present, no masses and no bruits PALPATION: Yes Soft to palpation and Yes No hepatosplenomegaly present Extremity: COMMON NORMALS: normal to inspection, full ROM, capillary refill normal, no calf tenderness and no pedal edema Neuro: COMMON NORMALS: patient oriented x3 SENSORIUM/ORIENTATION: Yes alert MENINGEAL SIGNS: Yes no meningeal signs Skin: COMMON NORMALS: no rashes or lesions noted, no wounds, turgor normal, no jaundice, no petechiae and no mottling GENERAL SKIN EXAM: no rashes or lesions noted and turgor normal Course Reevaluation(s): Reevaluation #1: Discussed his lab and imaging findings with him. Explained that he is worsening and x-ray and CT scan findings show significant lung disease. He is not hypoxic and requiring oxygen supplementation. He will therefore benefit from hospital admission for further evaluation and management. He voiced understanding and is in agreement with the plan. Time: 17:10 Consultations: Consultation #1: Discussed the patient with Dr. Abdul, hospitalist and he kindly accepted the patient to his service. Time: 17:15 Vital Signs: Vital signs: Vital Signs Temperature 99.0 F 04/12/21 00:05 Pulse Rate 83 04/12/21 00:35 Respiratory Rate 23 H 04/12/21 00:35 Blood Pressure 141/81 04/12/21 00:35 Pulse Oximetry 91 04/12/21 00:35 MDM - COVID MDM Narrative: Medical decision making narrative: 51-year-old male with COVID- 19. Symptoms have been going on for about 1 week now. He was seen in this emergency department 2 days ago and in the last 2 days he has been significantly declining. He is now hypoxic and in acute respiratory failure requiring oxygen supplementation via heated high flow oxygen. He is admitted to the hospital for further evaluation and management. Medical Records: Attestation: I reviewed the patient's medical records. Lab Data: Attestation: I reviewed the patient's lab results. Labs: Lab Results 04/11/21 04/11/21 04/11/21 Range/Units 14:12 14:50 14:50 WBC Cancelled Corrected WBC Cancelled RBC Cancelled Hgb Cancelled Hct Cancelled MCV Cancelled MCH Cancelled MCHC Cancelled RDW Cancelled Plt Count Cancelled MPV Cancelled Gran % Cancelled Neut % (Auto) Cancelled Lymph % (Auto) Cancelled [place] % (Auto) Cancelled Eos % (Auto) Cancelled Baso % (Auto) Cancelled Neut # (Auto) Cancelled Lymph # (Auto) Cancelled [place] # (Auto) Cancelled Eos # (Auto) Cancelled Baso # (Auto) Cancelled Absolute Gran (aut o) Cancelled Nucleated RBC % (a uto) Cancelled Nucleated RBCs # Cancelled D-Dimer 2.01 H (0-0.59) ug/mIFE U Specimen Type Arterial Sample Site Radial, left ABG pH 7.48 H (7.35-7.45) ABG pCO2 32.5 L (35-45) mmHg ABG pO2 46.6 L (80.0-100.0) mmH g ABG HCO3 23.9 (22-26) mmol/L ABG Base Excess 0.9 (-2.0-2.0) mmol/ L Killian Test Pos Hematocrit 42.4 (42-52) % O2 Delivery Device Nc O2 Liters/Min 6.0 % Silver Miner ID Cak Sodium (136-145) mmol/L Potassium (3.5-5.1) mmol/L Chloride (98-107) mmol/L Carbon Dioxide (22-29) mmol/L Anion Gap (5-19) BUN (6-20) mg/dL Creatinine (0.7-1.2) mg/dL GFR Calculation (90-130) mL/min Glucose (65-115) mg/dL Calculated Osmolal ity (285-295) mOsm/k g Lactic Acid (0.5-2.2) mmol/L Calcium (8.5-10.5) mg/dL Iron (59-158) ug/dL TIBC mcg/dl % Saturation (20-50) % Unsat Iron Binding (112-347) ug/dL Ferritin (30-400) ng/mL Total Bilirubin (0.15-1.2) mg/dL AST (0-40) U/L ALT (0-41) U/L Alkaline Phosphata se (40-130) IU/L C-Reactive Protein (0.0-4.9) mg/L NT-Pro-B Natriuret Pep (0-125) pg/mL Total Protein (6.6-8.7) g/dL Albumin (3.5-5.2) g/dL Globulin (1.3-4.6) g/dL Procalcitonin (0-0.5) ng/mL TSH (0.27-4.20) uIU/ mL 04/11/21 04/11/21 04/11/21 Range/Units 14:50 14:50 14:50 WBC Corrected WBC RBC Hgb Hct MCV MCH MCHC RDW Plt Count MPV Gran % Neut % (Auto) Lymph % (Auto) [place] % (Auto) Eos % (Auto) Baso % (Auto) Neut # (Auto) Lymph # (Auto) [place] # (Auto) Eos # (Auto) Baso # (Auto) Absolute Gran (aut o) Nucleated RBC % (a uto) Nucleated RBCs # D-Dimer (0-0.59) ug/mIFE U Specimen Type Sample Site ABG pH (7.35-7.45) ABG pCO2 (35-45) mmHg ABG pO2 (80.0-100.0) mmH g ABG HCO3 (22-26) mmol/L ABG Base Excess (-2.0-2.0) mmol/ L Killian Test Hematocrit (42-52) % O2 Delivery Device O2 Liters/Min % Silver Miner ID Sodium 138 (136-145) mmol/L Potassium 4.8 (3.5-5.1) mmol/L Chloride 104 (98-107) mmol/L Carbon Dioxide 23 (22-29) mmol/L Anion Gap 15.8 (5-19) BUN 9 (6-20) mg/dL Creatinine 0.7 (0.7-1.2) mg/dL GFR Calculation 119.9 (90-130) mL/min Glucose 116 H (65-115) mg/dL Calculated Osmolal ity 286 (285-295) mOsm/k g Lactic Acid 1.4 (0.5-2.2) mmol/L Calcium 7.7 L (8.5-10.5) mg/dL Iron 15 L (59-158) ug/dL TIBC 177 mcg/dl % Saturation 8.4 L (20-50) % Unsat Iron Binding 162 (112-347) ug/dL Ferritin 2387 H (30-400) ng/mL Total Bilirubin 1.0 (0.15-1.2) mg/dL AST 66 H (0-40) U/L ALT 50 H (0-41) U/L Alkaline Phosphata se 63 (40-130) IU/L C-Reactive Protein 171.3 H (0.0-4.9) mg/L NT-Pro-B Natriuret Pep 173 H (0-125) pg/mL Total Protein 6.3 L (6.6-8.7) g/dL Albumin 3.2 L (3.5-5.2) g/dL Globulin 3.1 (1.3-4.6) g/dL Procalcitonin 0.05 0.05 (0-0.5) ng/mL TSH 0.42 (0.27-4.20) uIU/ mL 04/11/21 Range/Units 17:06 WBC 13.6 H Corrected WBC RBC 4.39 Hgb 13.8 Hct 40.6 L MCV 92.5 MCH 31.4 MCHC 34.0 RDW 12.1 Plt Count 130 MPV 9.6 Gran % Neut % (Auto) 95.3 Lymph % (Auto) 2.6 [place] % (Auto) 1.6 Eos % (Auto) 0.0 Baso % (Auto) 0.1 Neut # (Auto) 12.95 H Lymph # (Auto) 0.4 L [place] # (Auto) 0.2 Eos # (Auto) 0.0 Baso # (Auto) 0.0 Absolute Gran (aut o) Nucleated RBC % (a uto) 0 Nucleated RBCs # 0.0 D-Dimer (0-0.59) ug/mIFE U Specimen Type Sample Site ABG pH (7.35-7.45) ABG pCO2 (35-45) mmHg ABG pO2 (80.0-100.0) mmH g ABG HCO3 (22-26) mmol/L ABG Base Excess (-2.0-2.0) mmol/ L Killian Test Hematocrit (42-52) % O2 Delivery Device O2 Liters/Min % Silver Miner ID Sodium (136-145) mmol/L Potassium (3.5-5.1) mmol/L Chloride (98-107) mmol/L Carbon Dioxide (22-29) mmol/L Anion Gap (5-19) BUN (6-20) mg/dL Creatinine (0.7-1.2) mg/dL GFR Calculation (90-130) mL/min Glucose (65-115) mg/dL Calculated Osmolal ity (285-295) mOsm/k g Lactic Acid (0.5-2.2) mmol/L Calcium (8.5-10.5) mg/dL Iron (59-158) ug/dL TIBC mcg/dl % Saturation (20-50) % Unsat Iron Binding (112-347) ug/dL Ferritin (30-400) ng/mL Total Bilirubin (0.15-1.2) mg/dL AST (0-40) U/L ALT (0-41) U/L Alkaline Phosphata se (40-130) IU/L C-Reactive Protein (0.0-4.9) mg/L NT-Pro-B Natriuret Pep (0-125) pg/mL Total Protein (6.6-8.7) g/dL Albumin (3.5-5.2) g/dL Globulin (1.3-4.6) g/dL Procalcitonin (0-0.5) ng/mL TSH (0.27-4.20) uIU/ mL Imaging Data: CTA Chest: Attestation: I personally reviewed and interpreted this imaging study as follows: Radiologist's impression: [address] [id number] Scan ReportSigned Patient: Andre Cook RUnit #: [id number]: [id number]#:[id number]/Sex: 51 / MADM Date: 04/11/21Loc: ERRoom/Bed:Attending Dr: Ordering Provider/Ordering MD: Papi Cornejo MD, [facility] [place] Date of Service: 04/11/21 Procedure(s): CT angio chest PE protcl [id number] Accession Number(s): [id number] Report Number: [id number] PROCEDURE INFORMATION: Exam: CTA Chest With Contrast Exam date and time: 04/11/2021 3:29 PM Age: 51 years old Clinical indication: Shortness of breath; Additional info: Hypoxia, SOB, covid TECHNIQUE: Imaging protocol: Computed tomographic angiography of the chest with contrast. 3D rendering (Not supervised by radiologist): MIP and/or 3D reconstructed images were created by the technologist. Radiation optimization: All CT scans at this facility use at least one of these dose optimization techniques: automated exposure control; mA and/or kV adjustment per patient size (includes targeted exams where dose is matched to clinical indication); or iterative reconstruction. Contrast material: OMNIPAQUE 350; Contrast volume: 77 ml; Contrast route: INTRAVENOUS (IV); COMPARISON: CT chest w con* [id number] 01/04/2018 7:09 PM RADIATION DOSE METRICS: Total DLP (mGy-cm): 615.51 FINDINGS: Pulmonary arteries: Normal. No pulmonary emboli. Aorta: Unremarkable. No aortic aneurysm. No aortic dissection. Lungs: Fairly widespread ground-glass attenuation opacities filling alveolar spaces bilaterally. Small scattered areas of pulmonary parenchymal sparing. Negative for endobronchial obstruction. Areas of crazy paving are present. No interstitial fibrosis. No peripheral honeycombing. Pleural spaces: Unremarkable. No pneumothorax. No pleural effusion. Heart: Unremarkable. No cardiomegaly. No pericardial effusion. Lymph nodes: Unremarkable. No enlarged lymph nodes. Bones/joints: Unremarkable. No acute fracture. Soft tissues: Unremarkable. CT/CT angio chest PE protcl [id number] IMPRESSION: 1. Negative for pulmonary embolism. 2. Widespread bilateral airspace disease. 3. Commonly reported imaging features of COVID-19 pneumonia are present. Other processes such as influenza pneumonia and organizing pneumonia, as can be seen with drug toxicity and connective tissue disease, can cause a similar imaging pattern. (Reference: Kentrell) REFERENCES: Kentrell Lynch, et al., Radiological Society of [place] Expert Consensus Statement on Reporting Chest CT Findings Related to COVID-19. Endorsed by the Society of Thoracic Radiology, the [place] [employer] [place] [employer], and RSNA. Published January 16, 2020. Radiation Dose CTDIVOL = (mGy): DLP = 615.51 (mGy-cm) Dictated By:Narciso Pratt By:Narciso Pratt Date/Time:04/11/21 1653DD/ 1652 CXR: Attestation: I personally reviewed and interpreted this imaging study as follows: Radiologist's impression: [address] [id number] ReportSigned Patient: Andre Cook RUnit #: [id number]: 1970Acct#:[id number]/Sex: 51 / MADM Date: 04/11/21Loc: ERRoom/Bed:Attending Dr: Ordering Provider/Ordering MD: Papi Cornejo MD, [facility] [place] Date of Service: 04/11/21 Procedure(s): XR chest 1V portable [id number] Accession Number(s): [id number] Report Number: [id number] PROCEDURE INFORMATION: Exam: XR Chest Exam date and time: 04/11/2021 2:08 PM Age: 51 years old Clinical indication: Shortness of breath; Additional info: SOB, hypoxia, covid positive TECHNIQUE: Imaging protocol: XR of the chest. Views: 1 view. COMPARISON: CR XR chest 1V portable [id number] 04/09/2021 2:20 PM FINDINGS: Lungs: Bilateral patchy pulmonary opacities. There are pulmonary parenchymal calcifications consistent with remote granulomatous organism exposure. Pleural spaces: Unremarkable. No pleural effusion. No pneumothorax. Heart/Mediastinum: Unremarkable. No cardiomegaly. Bones/joints: Unremarkable. XR/XR chest 1V portable [id number] IMPRESSION: There are bilateral patchy pulmonary opacities, consistent with pneumonia. Dictated By:Columba Temple MDSigned By:Columba Temple MDSigned Date/Time:04/11/21 1523DD/ 1522 COVID Results: SARS-CoV-2 RNA (RT-PCR) Detected (NOT DETECTED) A 04/06/21 15:09 04/06/21 Critical Care Time Critical Care Time: Critical Care Time: Yes Total Critical Care Time: 60 Attestation: This case had a high probability of a clinically significant, sudden, or life threatening deterioration of this patient's condition which required my full and direct attention, intervention and personal management. Discharge Plan Discharge Patient Disposition: Admitted As Inpatient Admit Provider: Mioses Cage Clinical Impression: Acute respiratory failure due to COVID-19, ARDS (adult respiratory distress syndrome) Condition: Stable Coding Level of Care Code ED Rental Sales Representative for Chg Fwd Exam Comprehensive
[2021-04-11] MEDS: iohexol 350 mg/mL 100 mL Btl IV (16:27)
[2021-04-11 17:11] LABS: Basophils % 0.1 %; Hematocrit 40.6 % (42.0-52.0); Hemoglobin 13.8 g/dL (11.7-16.6); Lymphocytes # 0.4 10^3/uL (0.8-4.8); Lymphocytes % 2.6 %; Mean Corpuscular Hemoglobin 31.4 pg (28.0-34.0); Mean Corpuscular Volume 92.5 fL (80-94); Mean Platelet Volume 9.6 fL (7.4-10.4); Monocytes # 0.2 10^3/uL (0.2-0.9); Monocytes % 1.6 %; Neutrophils # 12.95 10^3/uL (1.8-7.7); Neutrophils % 95.3 %; Nucleated Red Blood Cells % 0 %; Platelet Count 130 10^3/cmm (130-400); Red Blood Count 4.39 10^6/uL (4.1-5.3); Red Cell Distribution Width 12.1 % (12.1-15.1); White Blood Count 13.6 10^3/uL (4.0-10.0)
--- NOTE | 2021-04-11 17:31 | P.HP_ITS ---
Providers/Chief Complaint Primary Care Provider: NGUYEN Noe Chief Complaint: COVID +; LOW O2 SATS History of Present Illness Andre Cook is a 51 year old male with past medical history of hypertension, strong family history of CAD presented to the ER today with worsening shortness of breath. He was seen in ER 2 days ago on April 09 with history of 5 days of fever, cough and shortness of breath at that time he was tested positive for Covid 4 days ago. He was discharged from the ER as he was not hypoxic at that time. Today he started having severe shortness of breath so called EMS. On arrival with the EMS he was saturating 84% next placed on 6 L nonrebreather and brought to the ER. Currently patient is on heated high flow 45 L 80% saturating 96%. He states everyone in his family are having similar symptoms with his current [id number] admitted on the floor with COVID-19 right now. He has not received his Covid vaccine till now. Denies any recent travels. States he has been having runny nose and cold-like symptoms for a week prior to he was tested. Has been having occasional episodes of diarrhea for last 2 days. Complaining of body aches and feeling hot for last 2 days. Review of Systems General: Reports: 10 or more systems reviewed and unremarkable except in HPI and below Const: Denies: fever(s), chills, body aches, change in appetite, change in weight, malaise, night sweats, diaphoresis, change in sleep pattern, daytime sleepiness or snoring Eyes: Denies: change in vision, blurry vision, photophobia, eye discomfort or eye discharge ENMT: Denies: throat pain, enlarged tonsils, hoarseness, mouth pain, oral sores, dry mouth, tinnitus, nasal congestion or post nasal drip Card: Denies: chest pain, palpitations, irregular heart rhythm, edema, swelling of feet/ankles, lightheadedness, syncope, pre-syncope, dyspnea on exertion, orthopnea, leg pain with exertion or acrocyanosis Resp: Denies: dyspnea, productive cough, non-productive cough, wheezing, stridor, pain on inspiration, change in phlegm color, hemoptysis or chest congestion GI: Denies: abdominal pain, nausea, vomiting, hematemesis, coffee ground emesis, dysphagia, heartburn, diarrhea, constipation, bloating, GI cramping, change in bowel habits, pain on defecation, hematochezia or melena : Denies: flank pain, difficulty urinating, dysuria, urinary frequency, urinary urgency, urinary hesitancy, urinary dribbling, difficulty starting uri nation, change in urine stream, nocturia or hematuria Musc: Denies: neck pain, back pain, extremity pain, joint pain, joint swelling, joint redness, joint stiffness or limited range of motion Neuro: Denies: headache(s), numbness in extremities, weakness in extremities, sensory changes, lack of coordination, difficulty walking, frequent falls, dizziness, vertigo, confusion, Slurred speech present, difficulty communicating thoughts or seizure-like activity Psych: Denies: anxiety, depression, mood swings, panic attacks, hopelessness or irritability Endo: Denies: polyuria, polydipsia, tired all the time, cold intolerance, excessive sweating, flushing or heat intolerance Edvin/Lymph: Denies: easy bruising or easy bleeding All/Imm: Denies: tongue swelling, facial swelling or acute wheezing Medications/Allergies Home Medications Medication Instructions Recorded Confirmed Last Taken Type loperamide 2 mg capsule 2 mg PO Q3H PRN #8 cap 02/12/20 04/09/21 Unknown Rx omeprazole magnesium 20 mg 20 mg PO DAILY 02/12/20 04/09/21 04/09/21 History tablet,delayed release nitroglycerin 0.4 mg sublingual 0.4 mg SUBLINGUAL Q5M PRN 30 Days 11/25/20 04/09/21 Unknown Rx tablet #30 tab albuterol sulfate 2.5 mg INHALATION Q4H PRN 30 Days 01/15/21 04/09/21 04/09/21 Rx #75 ml albuterol sulfate 90 mcg/actuation 2 puff INHALATION Q6H PRN 30 Days 01/15/21 04/09/21 Unknown Rx aerosol inhaler #6.7 gm atorvastatin 10 mg tablet 10 mg PO DAILY 30 Days #30 tab 01/15/21 04/09/2104/08 Rx budesonide-formoterol HFA 160 2 puff INHALATION BID 30 Days #6 gm 01/15/21 04/09/21 Unknown Rx mcg-4.5 mcg/actuation aerosol inhaler cetirizine 10 mg tablet 10 mg PO DAILY 30 Days #30 tab 01/15/21 04/09/21 04/09/21 Rx irbesartan 150 mg tablet 150 mg PO DAILY 30 Days #30 tab 01/15/21 04/09/21 04/09/21 Rx meloxicam 15 mg tablet 15 mg PO DAILY 30 Days #30 tab 01/15/21 04/09/21 04/09/21 Rx montelukast 10 mg tablet 10 mg PO DAILY 30 Days #30 tab 01/15/21 04/09/21 04/08/21 Rx promethazine-DM 6.25 mg-15 mg/5 mL 5 ml PO Q6H PRN #118 ml 04/02/21 04/09/21 04/09/21 Rx oral syrup Theraflu Cold-Cough See Rx Instructions .ROUTE .COMPLEX 04/09/21 04/09/21 04/08/21 History multivitamin 1 tab PO DAILY 04/09/21 04/09/21 Unknown History Allergies Allergy/AdvReac Type Severity Reaction Status Date / Time Sulfa (Sulfonamide Allergy Unknown Verified 04/02/21 14:06 Antibiotics) PFSH Acute PFSH: Medical History (Updated 04/12/21 @ 00:57 by Papi Cornejo [place], [facility] [place] Acute carpal tunnel syndrome of left wrist Cervical spinal stenosis Diverticulitis Elbow arthritis Environmental and seasonal allergies Essential (primary) hypertension GERD (gastroesophageal reflux disease) Hyperlipidemia Hypertension Left inguinal hernia Lumbar disc disease with radiculopathy Mild intermittent asthma Surgical History (Updated 04/11/21 @ 17:34 by Osmar Stout MD) H/O oral surgery H/O varicose vein stripping History of ankle surgery History of decompression of ulnar nerve Hx of carpal tunnel repair S/P vasectomy Status post endovenous radiofrequency ablation (RFA) of saphenous vein Family History Other Diabetes Heart disease Hypertension Social History Smoking and tobacco status: never smoked Alcohol intake: never Adopted: No Household members: spouse Housing: House Marital status: Number of children: 2 Highest education level completed: High School Graduate Current occupational status: employed Pets and animals: Yes History of recent travel: No Current gender identity: Male Vitals/I&O/Wt Last Vital Signs Pulse 119 H 04/11/21 17:18 Resp 20 H 04/11/21 17:18 BP 107/61 04/11/21 17:18 Pulse Ox 96 04/11/21 17:18 Weight last 48 hrs Weight 117.934 kg Physical Exam Narrative: EXAM NARRATIVE: General: No acute distress, AO x3 HEENT: PERRLA, pupils bilaterally equal and reactive Chest: Normal vesicular breath sounds, no added sounds, equal good air entry bilaterally CVS: S1-S2 regular, no murmurs, no tachycardia, no gallops, no rubs Abdomen: Soft, nontender, no organomegaly, bowel sounds present Neuro: No focal deficits, no facial deformity, AO x3, power 5/5 in all limbs Data : 04/12/21 06:33 04/12/21 06:33 A&P Assessment and plan (1) ARDS (adult respiratory distress syndrome): Status: Acute (2) COVID-19: Status: Acute (3) Hyperlipidemia: Status: Chronic Qualifiers: Hyperlipidemia type: mixed hyperlipidemia Qualified Code(s): E78.2 - Mixed hyperlipidemia (4) Hypertension: Status: Acute Additional A&P Information ARDS due to COVID-19 pneumonia: Moderate to severe diseases patient is requiring high oxygen supplementation currently. Start patient on dexamethasone and antiviral treatment with remdesivir. Given the fact that patient is day 7 of symptomatology with worsening inflammatory markers from 2 days ago we will start patient on Actemra. Will get EKG to monitor QTC. Vitamin C, zinc. Tessalon Perles. DuoNebs every 6 hour, budesonide twice daily. Pulmonary toilet incentive spirometry and flutter valve. Monitor inflammatory markers including CRP, D-dimer, ferritin, fibrinogen. D-dimer elevated but CTA negative for PE. For now start patient on Eliquis 2.5 mg twice daily. No signs of bacterial infection. Check procalcitonin, sputum culture, urine Legionella, bacterial antigen, blood culture. For now start patient azit hromycin. Will cover with broad-spectrum if patient spikes fever. Normal saline at 75 cc/h. Echocardiogram. Hypertension: Goal blood pressure less than 140/90 mmHg with mean over 65. Blood pressures currently soft. For now hold off on to home dose of ibesartan. Hyperlipidemia: Continue with home dose. Check iron panel, TSH. Full code Regular diet. Eliquis 2.5 mg to also help with DVT prophylaxis. Admit to ICU. Attestations Medical Necessity Statement*: Admission for more than 2 midnights for t reatment of ARDS because of COVID-19 pneumonia Time Spent in Patient Care: Greater than 35 minutes (>than 50% of time spent in counselling and/or direct pt care on unit) . Coding Level of Care Code Acute Bindery Leadperson for Isabel Lj Diagnoses ARDS (adult respiratory distress syndrome) J80 COVID-19 U07.1 Hyperlipidemia E78.2 Hyperlipidemia type: mixed hyperlipidemia Hypertension I10
--- NOTE | 2021-04-11 17:42 | ECG_ITS ---
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 Measurements Intervals [place] Rate: 90 P: 41 UT: 153 QRS: 28 QRSD: 94 T: 34 QT: 345 QTc: 424 Interpretive Statements SINUS RHYTHM Compared to ECG 12/31/2020 10:19:03 No significant changes Electronically Signed On 04-12-2021 19:02:26 CDT by Modesta Grayson M.D. [email or web address] and Budget Housing Corporationselect medical specialty hospital - [id number]
[2021-04-11 18:06] LABS: Procalcitonin 0.05 ng/mL (0-0.5); Thyroid Stimulating Hormone 0.42 uIU/mL (0.27-4.20)
[2021-04-11 18:16] LABS: Iron 15 ug/dL (59-158)
[2021-04-11 18:19] LABS: Percent Saturation 8.4 % (20-50); Total Iron Binding Capacity 177 mcg/dl; Unsaturated Iron Binding 162 ug/dL (112-347)
[2021-04-11] MEDS: sodium chloride 0.9% 1,000 ML 75 ML IV (18:34)
--- NOTE | 2021-04-11 18:44 | PC.NURSE ---
TO floor Pt brought to floor by ER staff. Pt is A&O. He is able to use a urinal. Denies pain. He is on 45l heated high flow O2 satting at 91%. He has been oriented to room.
[2021-04-11] MEDS: ferrous gluconate 324 mg Tablet PO (19:59)
[2021-04-11] MEDS: benzonatate 100 mg Capsule PO (19:59)
[2021-04-11] MEDS: apixaban 5 mg Tablet 2.5 MG PO (19:59)
[2021-04-11] MEDS: ascorbic acid 500 mg Tablet 1000 MG PO (19:59)
[2021-04-11] MEDS: famotidine 20 mg/2 mL INJ IVP (19:59)
[2021-04-11] MEDS: azithromycin 500 MG in sodium chloride 0.9% 250 ML 250 MG IV (20:00)
[2021-04-11] MEDS: budesonide 0.5 mg/2 mL Neb INHALATION (20:22)
[2021-04-11] MEDS: ipratropium-albuterol 3 mL Neb INHALATION (20:22)
[2021-04-11 22:01] LABS: Specific Gravity, Urine 1.005 (1.005-1.030); Urine Appearance Clear (CLEAR); Urine Color Yellow (Yellow); pH Urine 5 (5-7)
[2021-04-11 22:02] LABS: Add Urine Culture? No; Bacteria Urine TRACE /hpf; Bilirubin Urine Neg (Negative); Blood Urine 2+ (Negative); Glucose Urine UA Trace (Normal); Ketones Urine Negative (Negative); Leukocyte Esterase Urine Negative (Negative); Nitrate Urine Negative (Negative); Protein Urine 1+ (Negative); Squamous Epithelial Cell Urine 0-4 /hpf (0-5); Urobilinogen Urine Norm (Negative); WBC Urine 0-4 /hpf (0-5)
[2021-04-11 22:59] LABS: Glucose Point of Care 252 mg/dL (70-110)
[2021-04-12] VITALS (93 sets, daily range): BP systolic 115–153; BP diastolic 68–94; PULSE 73–117; RESP 15–53; TEMP 37.1–37.2; O2SAT 77–99
[2021-04-12] MEDS: ipratropium-albuterol 3 mL Neb INHALATION ×6 (01:59→23:11)
[2021-04-12] MEDS: morphine 4 mg/mL SDV 1 mL 2 MG IVP ×2 (02:18→09:34)
[2021-04-12] MEDS: guaiFENesin-codeine UDC 10 mL 5 ML PO (03:38)
[2021-04-12] MEDS: LORazepam 2 mg/mL INJ 1 mL 1 MG IVP (03:39)
[2021-04-12] MEDS: famotidine 20 mg/2 mL INJ IVP ×2 (06:54→18:06)
[2021-04-12] MEDS: sodium chloride 0.9% 1,000 ML 75 ML IV (06:55)
[2021-04-12 07:09] LABS: Basophils % 0.2 %; Eosinophils % 0.1 %; Hematocrit 39.2 % (42.0-52.0); Lymphocytes # 0.6 10^3/uL (0.8-4.8); Lymphocytes % 3.2 %; Mean Corpuscular HGB Conc 33.2 g/dL (30.0-36.0); Mean Corpuscular Hemoglobin 31.3 pg (28.0-34.0); Mean Corpuscular Volume 94.5 fL (80-94); Mean Platelet Volume 10.5 fL (7.4-10.4); Monocytes # 0.3 10^3/uL (0.2-0.9); Neutrophils # 16.19 10^3/uL (1.8-7.7); Neutrophils % 93.6 %; Nucleated Red Blood Cells % 0 %; Platelet Count 139 10^3/cmm (130-400); Red Blood Count 4.15 10^6/uL (4.1-5.3); Red Cell Distribution Width 12.3 % (12.1-15.1); White Blood Count 17.3 10^3/uL (4.0-10.0)
[2021-04-12 07:15] LABS: Fibrinogen 398 mg/dL (174-498)
[2021-04-12 07:28] LABS: Alanine Aminotransferase 44 U/L (0-41); Albumin Level 2.9 g/dL (3.5-5.2); Alkaline Phosphatase 61 IU/L (40-130); Aspartate Amino Transferase 55 U/L (0-40); Blood Urea Nitrogen 11 mg/dL (6-20); Calcium 7.8 mg/dL (8.5-10.5); Carbon Dioxide 23 mmol/L (22-29); Chloride 109 mmol/L (98-107); Creatine Phosphokinase 259 U/L (39-308); Globulin 3.2 g/dL (1.3-4.6); Glomerular Filtration Rate 143.2 mL/min (90-130); Glucose 173 mg/dL (65-115); Osmolality Calculated 296 mOsm/kg (285-295); Phosphorus 2.1 mg/dL (2.5-4.5); Sodium 141 mmol/L (136-145); Total Bilirubin 0.6 mg/dL (0.15-1.2); Total Protein 6.1 g/dL (6.6-8.7)
[2021-04-12 07:33] LABS: D Dimer >= 20.00 ug/mIFEU (0-0.59)
[2021-04-12 07:33] LABS: Glucose Point of Care 175 mg/dL (70-110)
[2021-04-12 07:38] LABS: Anion Gap 13.3 (5-19); Lactate Dehydrogenase 879 U/L (135-225); Potassium 4.3 mmol/L (3.5-5.1)
[2021-04-12] MEDS: ferrous gluconate 324 mg Tablet PO ×2 (07:48→17:17)
[2021-04-12] MEDS: atorvastatin 40 mg Tablet 10 MG PO (07:48)
[2021-04-12] MEDS: zinc gluconate 50 mg Tablet PO (07:49)
[2021-04-12] MEDS: ascorbic acid 500 mg Tablet 1000 MG PO ×2 (07:49→17:17)
[2021-04-12] MEDS: apixaban 5 mg Tablet 2.5 MG PO (07:49)
[2021-04-12] MEDS: benzonatate 100 mg Capsule PO ×3 (07:50→20:19)
[2021-04-12 07:55] LABS: Ferritin 2023 ng/mL (30-400)
[2021-04-12] MEDS: budesonide 0.5 mg/2 mL Neb INHALATION ×2 (08:04→19:48)
[2021-04-12 08:19] LABS: Estmated Average Glucose 128; Hemoglobin A1C 6.1 % (4.0-6.0)
[2021-04-12] MEDS: ondansetron 2 mg/ML SDV 2 mL 4 MG IVP (08:34)
--- NOTE | 2021-04-12 10:48 | P.PN_ITS ---
Subjective Subjective: Interval history: Patient continues to remain stable. He states he is feeling better better. Currently he is on facemask BiPAP 100% FiO2 saturating 96% with heart rate 112 bpm. Has remained hemodynamically stable overnight. Documented urine output for 400 cc overnight. Vitals/I&O/Wt Last Vital Signs Temp 98.9 F 04/12/21 04:00 Pulse 114 H 04/12/21 10:10 Resp 22 H 04/12/21 09:34 BP 147/78 04/12/21 07:36 Pulse Ox 91 04/12/21 10:10 04/11/21 04/12/21 04/12/21 22:59 06:59 14:59 Intake Total 840 / 840 926.25 / 1766.25 Output Total 800 / 800 300 / 1100 550 / 550 Balance 40 / 40 626.25 / 666.25 -550 / -550 Weight last 48 hrs Weight 107.365 kg Weight 117.934 kg Physical Exam Narrative: EXAM NARRATIVE: General: No acute distress, AO x3 HEENT: PERRLA, pupils bilaterally equal and reactive Chest: Normal vesicular breath sounds, no added sounds, equal good air entry bilaterally CVS: S1-S2 regular, no murmurs, no tachycardia, no gallops, no rubs Abdomen: Soft, nontender, no organomegaly, bowel sounds present Neuro: No focal deficits, no facial deformity, AO x3, power 5/5 in all limbs Data : 04/12/21 06:33 04/12/21 06:33 Micro: Microbiology 04/11/21 20:45 MRSA Culture - Final Nose 04/11/21 20:45 Bacterial Antigens - Final Urine Kidney 04/11/21 20:45 Legionella Urinary Antigen - Final Urine,Voided 04/11/21 22:19 Blood Culture - Preliminary Blood SPECIMEN COLLECTED 04/11/21 22:15 Blood Culture - Preliminary Blood SPECIMEN COLLECTED Laboratory Results WBC 17.3 10^3/uL (4.0-10.0) H 04/12/21 06:33 Corrected WBC Cancelled 04/11/21 14:50 RBC 4.15 10^6/uL (4.1-5.3) 04/12/21 06:33 Hgb 13.0 g/dL (11.7-16.6) 04/12/21 06:33 Hct 39.2 % (42.0-52.0) L 04/12/21 06:33 MCV 94.5 fL (80-94) H 04/12/21 06:33 MCH 31.3 pg (28.0-34.0) 04/12/21 06:33 MCHC 33.2 g/dL (30.0-36.0) 04/12/21 06:33 RDW 12.3 % (12.1-15.1) 04/12/21 06:33 Plt Count 139 10^3/cmm (130-400) 04/12/21 06:33 MPV 10.5 fL (7.4-10.4) H 04/12/21 06:33 Gran % Cancelled 04/11/21 14:50 Neut % (Auto) 93.6 % 04/12/21 06:33 Lymph % (Auto) 3.2 % 04/12/21 06:33 Jewell % (Auto) 2.0 % 04/12/21 06:33 Eos % (Auto) 0.1 % 04/12/21 06:33 Baso % (Auto) 0.2 % 04/12/21 06:33 Neut # (Auto) 16.19 10^3/uL (1.8-7.7) H 04/12/21 06:33 Lymph # (Auto) 0.6 10^3/uL (0.8-4.8) L 04/12/21 06:33 Jewell # (Auto) 0.3 10^3/uL (0.2-0.9) 04/12/21 06:33 Eos # (Auto) 0.0 10^3/uL (0.0-0.8) 04/12/21 06:33 Baso # (Auto) 0.0 10^3/uL (0.0-0.1) 04/12/21 06:33 Absolute Gran (auto) Cancelled 04/11/21 14:50 Nucleated RBC % (auto) 0 % 04/12/21 06:33 Nucleated RBCs # 0.0 /100WBC 04/12/21 06:33 Fibrinogen 398 mg/dL (174-498) 04/12/21 06:33 D-Dimer >= 20.00 ug/mIFEU (0-0.59) H 04/12/21 06:33 Specimen Type Arterial 04/11/21 14:12 Sample Site Radial, left 04/11/21 14:12 ABG pH 7.48 (7.35-7.45) H 04/11/21 14:12 ABG pCO2 32.5 mmHg (35-45) L 04/11/21 14:12 ABG pO2 46.6 mmHg (80.0-100.0) L 04/11/21 14:12 ABG HCO3 23.9 mmol/L (22-26) 04/11/21 14:12 ABG Base Excess 0.9 mmol/L (-2.0-2.0) 04/11/21 14:12 Killian Test Pos 04/11/21 14:12 Hematocrit 42.4 % (42-52) 04/11/21 14:12 O2 Delivery Device Nc 04/11/21 14:12 O2 Liters/Min 6.0 % 04/11/21 14:12 Anode Builder ID Cak 04/11/21 14:12 Sodium 141 mmol/L (136-145) 04/12/21 06:33 Potassium 4.3 mmol/L (3.5-5.1) 04/12/21 06:33 Chloride 109 mmol/L (98-107) H 04/12/21 06:33 Carbon Dioxide 23 mmol/L (22-29) 04/12/21 06:33 Anion Gap 13.3 (5-19) 04/12/21 06:33 BUN 11 mg/dL (6-20) 04/12/21 06:33 Creatinine 0.6 mg/dL (0.7-1.2) L 04/12/21 06:33 GFR Calculation 143.2 mL/min (90-130) H 04/12/21 06:33 Glucose 173 mg/dL (65-115) H 04/12/21 06:33 POC Glucose 175 mg/dL (70-110) H 04/12/21 07:27 Estimat Average Glucose 128 04/12/21 06:33 Hemoglobin A1c 6.1 % (4.0-6.0) H 04/12/21 06:33 Calculated Osmolality 296 mOsm/kg (285-295) H 04/12/21 06:33 Lactic Acid 1.4 mmol/L (0.5-2.2) 04/11/21 14:50 Calcium 7.8 mg/dL (8.5-10.5) L 04/12/21 06:33 Phosphorus 2.1 mg/dL (2.5-4.5) L 04/12/21 06:33 Magnesium 2.0 mg/dL (1.7-2.3) 04/12/21 06:33 Iron 15 ug/dL (59-158) L 04/11/21 14:50 TIBC 177 mcg/dl 04/11/21 14:50 % Saturation 8.4 % (20-50) L 04/11/21 14:50 Unsat Iron Binding 162 ug/dL (112-347) 04/11/21 14:50 Ferritin 2023 ng/mL (30-400) H 04/12/21 06:33 Total Bilirubin 0.6 mg/dL (0.15-1.2) 04/12/21 06:33 AST 55 U/L (0-40) H 04/12/21 06:33 ALT 44 U/L (0-41) H 04/12/21 06:33 Alkaline Phosphatase 61 IU/L (40-130) 04/12/21 06:33 Lactate Dehydrogenase 879 U/L (135-225) H 04/12/21 06:33 Creatine Kinase 259 U/L (39-308) 04/12/21 06:33 C-Reactive Protein 168.0 mg/L (0.0-4.9) H 04/12/21 06:33 NT-Pro-B Natriuret Pep 173 pg/mL (0-125) H 04/11/21 14:50 Total Protein 6.1 g/dL (6.6-8.7) L 04/12/21 06:33 Albumin 2.9 g/dL (3.5-5.2) L 04/12/21 06:33 Globulin 3.2 g/dL (1.3-4.6) 04/12/21 06:33 Procalcitonin 0.05 ng/mL (0-0.5) 04/11/21 14:50 Procalcitonin 0.05 ng/mL (0-0.5) 04/11/21 14:50 TSH 0.42 uIU/mL (0.27-4.20) 04/11/21 14:50 Urine Color Yellow (Yellow) 04/11/21 20:45 Urine Appearance Clear (CLEAR) 04/11/21 20:45 Urine pH 5 (5-7) 04/11/21 20:45 Ur Specific [place] 1.005 (1.005-1.030) 04/11/21 20:45 Urine Protein 1+ (Negative) H 04/11/21 20:45 Urine Glucose (UA) Trace (Normal) H 04/11/21 20:45 Urine Ketones Negative (Negative) 04/11/21 20:45 Urine Blood 2+ (Negative) H 04/11/21 20:45 Urine Nitrate Negative (Negative) 04/11/21 20:45 Urine Bilirubin Neg (Negative) 04/11/21 20:45 Urine Urobilinogen Norm mg/dL (Negative) 04/11/21 20:45 Ur Leukocyte Esterase Negative (Negative) 04/11/21 20:45 Urine RBC 5-10 /hpf (0-2) H 04/11/21 20:45 Urine WBC 0-4 /hpf (0-5) H 04/11/21 20:45 Ur Squamous Epith Cells 0-4 /hpf (0-5) H 04/11/21 20:45 Amorphous Sediment Not Reportable 04/11/21 20:45 Urine Bacteria Trace /hpf (NONE) 04/11/21 20:45 Impressions Chest X-Ray 04/11/21 14:08 IMPRESSION: There are bilateral patchy pulmonary opacities, consistent with pneumonia. Chest CTA 04/11/21 15:29 IMPRESSION: 1. Negative for pulmonary embolism. 2. Widespread bilateral airspace disease. 3. Commonly reported imaging features of COVID-19 pneumonia are present. Other processes such as influenza pneumonia and organizing pneumonia, as can be seen with drug toxicity and connective tissue disease, can cause a similar imaging pattern. (Reference: Kentrell) REFERENCES: Kentrell Lynch, et al., Radiological Society of [place] Expert Consensus Statement on Reporting Chest CT Findings Related to COVID-19. Endorsed by the Society of Thoracic Radiology, the [place] [employer], and RSNA. Published January 16, 2020. Radiation Dose CTDIVOL = (mGy): DLP = 615.51 (mGy-cm) A&P Assessment and plan (1) ARDS (adult respiratory distress syndrome): Status: Acute (2) COVID-19: Status: Acute (3) Hyperlipidemia: Status: Chronic Qualifiers: Hyperlipidemia type: mixed hyperlipidemia Qualified Code(s): E78.2 - Mixed hyperlipidemia (4) Hypertension: Status: Acute Additional A&P Information ARDS due to COVID-19 pneumonia: Severe diseases patient is requiring high oxygen supplementation currently. Received 1 dose of Actemra on April 11. Continue dexamethasone 6 mg IV daily. Remdesivir protocol for 5 days. Depending on how he does we will see if patient would need further 5 days or not. Vitamin C, zinc. Tessalon Perles. DuoNebs every 6 hour, budesonide twice daily. Pulmonary toilet incentive spirometry and flutter valve. Monitor inflammatory markers including CRP, D-dimer, ferritin, fibrinogen. D-dimer severely elevated today. Increase the dose of Eliquis to 5 mg twice daily. Patient severely anxious. Start patient on Precedex drip. Morphine 1 mg IV every 2 hours as needed. Continue with azithromycin. Patient has low signs of infection but because he is severely ill for now start him on ceftriaxone for possible community-acquired pneumonia. Procalcitonin, MRSA swab, Legionella and bacterial antigen negative. Also discussed that he would like to decrease the exertion for now given the amount of oxygen he is requiring and for that it be best if he can get Taylor catheter placed. Patient states he would like to wait for now and see how is doing in next 24 hours. Hypertension: Goal blood pressure less than 140/90 mmHg with mean over 65. Blood pressures currently soft. For now hold off on to home dose of ibesartan. Hyperlipidemia: Continue with home dose. Full code status. Regular diet. Eliquis 5 mg to also help with DVT prophylaxis. Treatment plan discussed in detail with patient at bedside and with his over the phone. All the questions were answered. Attestations Medical Necessity Statement*: Patient requires further hospitalization for ma nagement of severe ARDS because of COVID-19 pneumonia Critical Care Time: The high probability of a clinically significant, sudden or life threatening deterioration of the patient's [respiratory] system(s) requ ired my full and direct attention, intervention and personal management. The critical care time is as shown. This time is in addition to time spent performing any reported procedures but includes the following: [x] Data and vital sign review and interpretation [x] Patient assessment, examination and intervention [x] Documentation [x] Medication orders and management Critical Care Time (min): 80 Coding Level of Care Code Acute Member Services Coordinator for Chg Fwd Diagnoses ARDS (adult respiratory distress syndrome) J80 COVID-19 U07.1 Hyperlipidemia E78.2 Hyperlipidemia type: mixed hyperlipidemia Hypertension I10
[2021-04-12] MEDS: FUROsemide 20 mg Tablet PO (11:03)
[2021-04-12] MEDS: cefTRIAXone 1,000 MG in sodium chloride 0.9% (plus) 50 ML 100 MG IV (11:03)
[2021-04-12 11:19] LABS: Glucose Point of Care 253 mg/dL (70-110)
[2021-04-12] MEDS: dexmedetomidine 400 MCG in sodium chloride 0.9% (100 ml) 100 ML IV (11:40)
[2021-04-12 16:53] LABS: Glucose Point of Care 199 mg/dL (70-110)
[2021-04-12] MEDS: dexamethasone 4 mg/mL INJ 6 MG IVP (17:17)
[2021-04-12] MEDS: remdesivir 100 MG in sodium chloride 0.9% (100 ml) 100 ML IV (17:46)
[2021-04-12] MEDS: azithromycin 500 MG in sodium chloride 0.9% 250 ML 250 MG IV (18:05)
--- NOTE | 2021-04-12 18:07 | PC.NURSE ---
Shift Summary: Pt was able to rest some midday today. He is tolerating the bipap well. 600ml out in urine. No distress.
[2021-04-12] MEDS: apixaban 5 mg Tablet PO (20:19)
[2021-04-12 20:59] LABS: Glucose Point of Care 205 mg/dL (70-110)
[2021-04-12] MEDS: dexmedetomidine 400 MCG in sodium chloride 0.9% (100 ml) 100 ML 8.37 MCG IV (23:53)
--- NOTE | 2021-04-12 23:56 | PC.NURSE ---
SHIFT SUMMARY Patient is resting in bed on BIPAP at 18/10 and 100%. Patient is alert and oriented x 4, precedex drip is running at 0.2 mcg/kg/hour. Patient requesting chicken noodle soup, respiratory called to switch patient to HHFNC so he could eat. Patient had to take bites extremely slow since short of breath. Oxygen average about 84-87% on HHFNC. Patient switched back to BIPAP and oxygen saturation back to 89-92%.
--- NOTE | 2021-04-12 23:58 | PC.NURSE ---
HOLD ELIQUIS Dr. Story called unit to speak with nurse at [phone]. Instructed nurse to hold patients AM dose of PO eliquis on 04/13/21.
[2021-04-13] VITALS (60 sets, daily range): BP systolic 117–157; BP diastolic 65–102; PULSE 62–117; RESP 15–46; TEMP 36.9–37.1; O2SAT 80–96
[2021-04-13] MEDS: ipratropium-albuterol 3 mL Neb INHALATION ×6 (03:20→23:00)
[2021-04-13 03:31] LABS: ABG PCO2 35.4 mmHg (35-45); ABG PH Result 7.44 (7.35-7.45); Alveolar-Arterial Oxygen Gradi 73.1 mmHg (5-10); Arterial Blood Gas Hematocrit 43.4 % (42-52); Base Excess ABG 0.3 mmol/L (-2.0-2.0); Blood Gas Allen Test Pos; Blood Gas Sample Site Radial, right; Blood Gas Sample Type Arterial; Carboxyhemoglobin 0.6 %THgb (0.4-20.1); HGB O2 Sat 97.3 % (95-100); Ionized Calcium Level - ABG 1.2 mmol/L (1.1-1.4); Methemoglobin 0.6 % (0.4-1.5); Oxygen Device BIPAP; Oxygen Saturation ABG 98.5; PO2 ABG 98.2 mmHg (80.0-100.0); Potassium Level - ABG 4.3 mmol/L (3.5-5.0); Total Hemoglobin 14.2 g/dL (14-18)
--- NOTE | 2021-04-13 06:00 | USCV_ITS ---
Joey Andre Age: 51 Gender: M : 1970 Exam Date: 04/13/2021 13:37 Ordering Phys: Osmar Stout MD Technologist: DUNIA RODRIGES Exam Location: [facility] [place] Indication: COVID+ LOW O2 SAT BP: 131 / 65 HR: 91 Rhythm: Sinus Technical Quality: Adequate MEASUREMENTS (Male / Female) Normal Values 2D ECHO LV Diastolic Diameter PLAX 3.6 cm 4.2 - 5.9 / 3.9 - 5.3 cm LV Systolic Diameter PLAX 2.3 cm LV Chamber Size 4.2 cm IVS Diastolic Thickness 1.7 cm 0.6 - 1.0 / 0.6 - 0.9 cm IVS Systolic Thickness 2.0 cm LVPW Diastolic Thickness 1.4 cm 0.6 - 1.0 / 0.6 - 0.9 cm LVPW Systolic Thickness 1.7 cm RV Chamber Size 3.9 cm LVOT Diameter 2.2 cm LV Ejection Fraction 2D Teich 66.7 % LV Ejection Fraction MOD 2C 56.4 % LV Ejection Fraction 2C AL 57.4 % LA Diameter 3.1 cm LA Width 3.7 cm LA Height 4.5 cm RA Width 3.2 cm RA Height 4.5 cm Aorta at Sinotubular Diameter 4.0 cm M-MODE LV Diastolic Diameter MM 4.6 cm 4.2 - 5.9 / 3.9 - 5.3 cm LV Systolic Diameter MM 3.3 cm LV Ejection Fraction MM Teich 55.7 % IVS Diastolic Thickness MM 1.2 cm 0.6 - 1.0 / 0.6 - 0.9 cm IVS Systolic Thickness MM 1.0 cm LVPW Diastolic Thickness MM 1.5 cm 0.6 - 1.0 / 0.6 - 0.9 cm LVPW Systolic Thickness MM 2.2 cm Aortic Annulus Diameter 4.2 cm LA Ao Ratio MM 0.7 MV E Point Septal Separation 0.6 cm DOPPLER AV Peak Velocity 139.0 cm/s LVOT Peak Velocity 121.0 cm/s AV Area Cont Eq vti 3.3 cm squared AV Area Cont Eq pk 3.4 cm squared MV Area PHT 3.5 cm squared Mitral E to A Ratio 0.8 MV E' Velocity 39.0 cm/s Mitral E to MV E' Ratio 5.1 Mitral E to LV E' Lateral Ratio 4.6 Mitral E to LV E' Septal Ratio 5.8 TR Peak Velocity 166.0 cm/s TR Peak Gradient 11.0 mmHg TR Mean Velocity 136.2 cm/s TR Mean Gradient 7.7 mmHg TR Velocity Time Integral 40.6 cm TV Peak E Velocity 59.0 cm/s Right Atrial Pressure 8.0 mmHg Pulmonary Artery Systolic Pressu 19.0 mmHg PV Peak Velocity 88.0 cm/s RV Acceleration Time 0.1 s RV Ejection Time 0.3 s RV AcT/ET 0.3 FINDINGS Left Ventricle Normal left ventricular cavity size. Normal left ventricular systolic function. No regional wall motion abnormalities. Left ventricular ejection fraction is estimated at 60 %. Right Ventricle The right ventricle is normal in size and function. Right Atrium The right atrium is normal in size. Left Atrium The left atrium is normal in size. Mitral Valve Structurally normal mitral valve without significant stenosis or prolapse. There is no mitral regurgitation. Aortic Valve Structurally normal aortic valve without significant sclerosis or stenosis. There is no aortic regurgitation. Tricuspid Valve Structurally normal tricuspid valve without significant stenosis or regurgitation. Pulmonary artery systolic pressure is normal. Pulmonic Valve Structurally normal pulmonic valve without significant stenosis. There is no pulmonic regurgitation. Pericardium Normal pericardium without effusion. Aorta Normal ascending aorta dimension. CONCLUSIONS 1-Normal left ventricular cavity size. Normal left ventricular systolic function. No regional wall motion abnormalities. Left ventricular ejection fraction is estimated at 60 %. 2-There is no pericardial effusion. 3-No significant valve abnormalities. 5-Pulmonary artery systolic pressure is within normal limits. 6-Right atrial pressure is around 5 mm of mercury. 7-There are no prior echocardiogram studies to compare. Shalini Gaines MD (Electronically Signed) Final Date: 13 April 2021 20:32 S
[2021-04-13] MEDS: famotidine 20 mg/2 mL INJ IVP (06:08)
[2021-04-13 06:10] LABS: Basophils % 0.2 %; Eosinophils % 0.1 %; Hematocrit 39.7 % (42.0-52.0); Hemoglobin 13.4 g/dL (11.7-16.6); Lymphocytes # 0.9 10^3/uL (0.8-4.8); Lymphocytes % 3.6 %; Mean Corpuscular HGB Conc 33.8 g/dL (30.0-36.0); Mean Corpuscular Hemoglobin 31.6 pg (28.0-34.0); Mean Corpuscular Volume 93.6 fL (80-94); Mean Platelet Volume 10.3 fL (7.4-10.4); Monocytes # 0.7 10^3/uL (0.2-0.9); Monocytes % 2.9 %; Neutrophils # 22.79 10^3/uL (1.8-7.7); Nucleated Red Blood Cells % 0 %; Platelet Count 154 10^3/cmm (130-400); Red Blood Count 4.24 10^6/uL (4.1-5.3); Red Cell Distribution Width 12.5 % (12.1-15.1); White Blood Count 24.8 10^3/uL (4.0-10.0)
[2021-04-13 06:23] LABS: Fibrinogen 176 mg/dL (174-498)
[2021-04-13 06:40] LABS: D Dimer >= 20.00 ug/mIFEU (0-0.59)
[2021-04-13 06:42] LABS: Procalcitonin 0.06 ng/mL (0-0.5)
--- NOTE | 2021-04-13 06:44 | PC.NURSE ---
SHIFT SUMMARY Patient remained on BIPAP throughout the shift, 10/08, 100%. Patient desats with BIPAP being taken off for drinks of water. 625 mL urine output. Afebrile. No acute issues throughout the night.
[2021-04-13 06:55] LABS: Alanine Aminotransferase 71 U/L (0-41); Albumin Level 3.2 g/dL (3.5-5.2); Alkaline Phosphatase 99 IU/L (40-130); Anion Gap 17.3 (5-19); Aspartate Amino Transferase 61 U/L (0-40); Blood Urea Nitrogen 18 mg/dL (6-20); C Reactive Protein 89.3 mg/L (0.0-4.9); Calcium 8.1 mg/dL (8.5-10.5); Carbon Dioxide 22 mmol/L (22-29); Chloride 104 mmol/L (98-107); Creatine Phosphokinase 107 U/L (39-308); Globulin 3.1 g/dL (1.3-4.6); Glomerular Filtration Rate 102.7 mL/min (90-130); Glucose 194 mg/dL (65-115); Lactate Dehydrogenase 800 U/L (135-225); Osmolality Calculated 295 mOsm/kg (285-295); Potassium 4.3 mmol/L (3.5-5.1); Sodium 139 mmol/L (136-145); Total Bilirubin 0.5 mg/dL (0.15-1.2); Total Protein 6.3 g/dL (6.6-8.7)
[2021-04-13 07:27] LABS: Ferritin 2165 ng/mL (30-400)
[2021-04-13] MEDS: ascorbic acid 500 mg Tablet 1000 MG PO ×2 (08:02→17:37)
[2021-04-13] MEDS: enoxaparin 40 mg/0.4 mL Syringe SUBCUT ×2 (08:02→20:20)
[2021-04-13] MEDS: zinc gluconate 50 mg Tablet PO (08:02)
[2021-04-13] MEDS: ferrous gluconate 324 mg Tablet PO ×2 (08:02→17:37)
[2021-04-13] MEDS: atorvastatin 40 mg Tablet 10 MG PO (08:03)
[2021-04-13] MEDS: benzonatate 100 mg Capsule PO ×3 (08:03→20:20)
[2021-04-13] MEDS: budesonide 0.5 mg/2 mL Neb INHALATION ×2 (08:10→19:46)
[2021-04-13 08:31] LABS: Glucose Point of Care 195 mg/dL (70-110)
[2021-04-13 11:25] LABS: Glucose Point of Care 257 mg/dL (70-110)
[2021-04-13] MEDS: cefTRIAXone 1,000 MG in sodium chloride 0.9% (plus) 50 ML 100 MG IV (11:59)
[2021-04-13] MEDS: dexmedetomidine 400 MCG in sodium chloride 0.9% (100 ml) 100 ML 8.37 MCG IV (12:20)
--- NOTE | 2021-04-13 15:58 | PM.PN ---
Subjective Subjective: Interval history: Patient was seen and examined this morning.Continues to require high supplemental oxygen. Has remained afebrile. Other vitals and labs have been reviewed. Vitals/I&O/Wt Last Vital Signs Temp 98.4 F 04/13/21 08:00 Pulse 102 H 04/13/21 14:00 Resp 18 04/13/21 12:30 BP 145/81 04/13/21 12:30 Pulse Ox 88 L 04/13/21 12:30 04/13/21 04/13/21 04/13/21 06:59 14:59 22:59 Intake Total 30.318 / 1639.318 794 / 794 Output Total 625 / 2625 700 / 700 Balance -594.682 / -985.682 94 / 94 Weight last 48 hrs Weight 123.014 kg Weight 107.365 kg Physical Exam Const: COMMON NORMALS: patient oriented x3 HENMT: COMMON NORMALS: normocephalic and atraumatic HEAD & SCALP: normocephalic and atraumatic Resp: OTHER: Bilateral diminished breath sounds. Cardio: COMMON NORMALS: regular rate, regular rhythm, S1 normal heart sound present, S2 normal heart sound present, No gallops present (Cardio), No murmurs present (Cardio), No rub (Cardio) and Peripheral pulses 2+ throughout RATE: regular rate RHYTHM: regular rhythm HEART SOUNDS: S1 normal heart sound present and S2 normal heart sound present PERIPHERAL PULSES: Peripheral pulses 2+ throughout GI: COMMON NORMALS: Normal to inspection, nondistended, normoactive bowel sounds present and no masses AUSCULTATION: Yes normoactive bowel sounds RECTAL EXAM: Yes deferred Extremity: COMMON NORMALS: no clubbing, cyanosis or edema and no pedal edema Neuro: COMMON NORMALS: patient oriented x3 Data : 04/13/21 05:49 04/13/21 05:49 Micro: Microbiology 04/11/21 22:19 Blood Culture - Preliminary Blood NEGATIVE TO DATE 04/11/21 22:15 Blood Culture - Preliminary Blood NEGATIVE TO DATE A&P Assessment and plan (1) ARDS (adult respiratory distress syndrome): Status: Acute (2) COVID-19: Status: Acute (3) Hyperlipidemia: Status: Chronic Qualifiers: Hyperlipidemia type: mixed hyperlipidemia Qualified Code(s): E78.2 - Mixed hyperlipidemia (4) Hypertension: Status: Acute Additional A&P Information ARDS due to COVID-19 pneumonia: Severe diseases patient is requiring high oxygen supplementation currently. Received 1 dose of Actemra on April 11. Continue dexamethasone 6 mg IV daily. Remdesivir protocol for 5 days. Depending on how he does we will see if patient would need further 5 days or not. Vitamin C, zinc. Tessalon Perles. DuoNebs every 6 hour, budesonide twice daily. Pulmonary toilet incentive spirometry and flutter valve. Monitor inflammatory markers including CRP, D-dimer, ferritin, fibrinogen. D-dimer severely elevated today. Increase the dose of Eliquis to 5 mg twice daily. Patient severely anxious. Start patient on Precedex drip. Morphine 1 mg IV every 2 hours as needed. Continue with azithromycin. Patient has low signs of infection but because he is severely ill for now start him on ceftriaxone for possible community-acquired pneumonia. Procalcitonin, MRSA swab, Legionella and bacterial antigen negative. Also discussed that he would like to decrease the exertion for now given the amount of oxygen he is requiring and for that it be best if he can get Taylor catheter placed. Patient states he would like to wait for now and see how is doing in next 24 hours. Hypertension: Goal blood pressure less than 140/90 mmHg with mean over 65. Blood pressures currently soft. For now hold off on to home dose of ibesartan. Hyperlipidemia: Continue with home dose. Full code status. Regular diet. Eliquis 5 mg to also help with DVT prophylaxis. Treatment plan discussed in detail with patient at bedside and with his over the phone. All the questions were answered. Attestations Medical Necessity Statement*: Patient needs to be in hospital for management of ARDS. Coding Level of Care Code Acute Flat Lock Machine Operator for Nithya Calhoun Diagnoses ARDS (adult respiratory distress syndrome) J80 COVID-19 U07.1 Hyperlipidemia E78.2 Hyperlipidemia type: mixed hyperlipidemia Hypertension I10
[2021-04-13] MEDS: dexamethasone 4 mg/mL INJ 6 MG IVP (17:36)
[2021-04-13] MEDS: famotidine 20 mg Tablet PO (17:37)
[2021-04-13] MEDS: lanolin oint 7 gm 1 APPLIC TOPICAL (17:42)
[2021-04-13 18:17] LABS: Glucose Point of Care 139 mg/dL (70-110)
[2021-04-13] MEDS: remdesivir 100 MG in sodium chloride 0.9% (100 ml) 100 ML IV (18:20)
[2021-04-13] MEDS: azithromycin 500 MG in sodium chloride 0.9% 250 ML 250 MG IV (18:20)
--- NOTE | 2021-04-13 18:48 | PC.NURSE ---
This AM patient was on BIPAP and before breakfast was switched to heated high flow. Oxygen level stayed in high 80's-90's. Patient was transferred to a chair and sat up for a few hours and oxygen levels improved to mid 90's. When transferring oxygen levels dropped to as low as 76.
[2021-04-13 20:01] LABS: Glucose Point of Care 153 mg/dL (70-110)
[2021-04-13] MEDS: dexmedetomidine 400 MCG in sodium chloride 0.9% (100 ml) 100 ML 11.17 MCG IV (21:21)
[2021-04-13] MEDS: acetaminophen 325 mg Tablet 650 MG PO (22:45)
[2021-04-14] VITALS (60 sets, daily range): BP systolic 114–179; BP diastolic 73–102; PULSE 67–123; RESP 28–52; TEMP 36.6–37.3; O2SAT 79–97
[2021-04-14] MEDS: ipratropium-albuterol 3 mL Neb INHALATION ×6 (03:17→23:23)
[2021-04-14] MEDS: LORazepam 2 mg/mL INJ 1 mL IVP ×2 (04:31→16:45)
[2021-04-14] MEDS: dexmedetomidine 400 MCG in sodium chloride 0.9% (100 ml) 100 ML 16.75 MCG IV (04:32)
[2021-04-14] MEDS: morphine 4 mg/mL SDV 1 mL 1 MG IVP ×2 (04:54→17:05)
[2021-04-14 05:27] LABS: C Reactive Protein 47.9 mg/L (0.0-4.9); Creatine Phosphokinase 197 U/L (39-308)
[2021-04-14 05:44] LABS: D Dimer >= 20.00 ug/mIFEU (0-0.59)
[2021-04-14 05:45] LABS: Fibrinogen 53 mg/dL (174-498)
[2021-04-14 06:20] LABS: ABG PCO2 37.2 mmHg (35-45); ABG PH Result 7.42 (7.35-7.45); Alveolar-Arterial Oxygen Gradi 79.1 mmHg (5-10); Arterial Blood Gas Hematocrit 46.2 % (42-52); Blood Gas Allen Test Pos; Blood Gas Operator Identificat JB; Blood Gas Sample Site Radial, right; Blood Gas Sample Type Arterial; Carboxyhemoglobin 0.9 %THgb (0.4-20.1); HCO3 ABG 24.2 mmol/L (22-26); HGB O2 Sat 89.5 % (95-100); Ionized Calcium Level - ABG 1.2 mmol/L (1.1-1.4); Methemoglobin 0.6 % (0.4-1.5); Oxygen Device BIPAP; Oxygen Saturation ABG 90.9; Potassium Level - ABG 4.9 mmol/L (3.5-5.0); Total Hemoglobin 15.1 g/dL (14-18)
[2021-04-14 07:45] LABS: Lactate Dehydrogenase 1264 U/L (135-225)
[2021-04-14 07:47] LABS: Ferritin 2147 ng/mL (30-400)
[2021-04-14 07:56] LABS: Glucose Point of Care 167 mg/dL (70-110)
[2021-04-14] MEDS: budesonide 0.5 mg/2 mL Neb INHALATION ×2 (08:00→19:20)
[2021-04-14] MEDS: enoxaparin 40 mg/0.4 mL Syringe SUBCUT (08:03)
[2021-04-14] MEDS: ferrous gluconate 324 mg Tablet PO (08:03)
[2021-04-14] MEDS: ascorbic acid 500 mg Tablet 1000 MG PO (08:03)
[2021-04-14] MEDS: atorvastatin 40 mg Tablet 10 MG PO (08:03)
[2021-04-14] MEDS: zinc gluconate 50 mg Tablet PO (08:03)
[2021-04-14] MEDS: famotidine 20 mg Tablet PO (08:04)
[2021-04-14] MEDS: benzonatate 100 mg Capsule PO ×3 (08:04→20:25)
[2021-04-14 09:09] LABS: Basophils # 0.1 10^3/uL (0.0-0.1); Basophils % 0.2 %; Eosinophils % 0.1 %; Hematocrit 43.8 % (42.0-52.0); Hemoglobin 14.6 g/dL (11.7-16.6); Lymphocytes # 0.9 10^3/uL (0.8-4.8); Lymphocytes % 3.5 %; Mean Corpuscular HGB Conc 33.3 g/dL (30.0-36.0); Mean Corpuscular Hemoglobin 31.4 pg (28.0-34.0); Mean Corpuscular Volume 94.2 fL (80-94); Mean Platelet Volume 10.5 fL (7.4-10.4); Monocytes # 0.6 10^3/uL (0.2-0.9); Monocytes % 2.4 %; Neutrophils # 22.37 10^3/uL (1.8-7.7); Neutrophils % 92.3 %; Nucleated Red Blood Cells % 0 %; Platelet Count 114 10^3/cmm (130-400); Red Blood Count 4.65 10^6/uL (4.1-5.3); Red Cell Distribution Width 12.5 % (12.1-15.1); White Blood Count 24.2 10^3/uL (4.0-10.0)
[2021-04-14 09:21] LABS: INR 1.63 (0.8-1.2); Partial Thromboplastin Time 30.6 SECONDS (23.9-36.7)
[2021-04-14 09:28] LABS: Alanine Aminotransferase 76 U/L (0-41); Albumin Level 3.3 g/dL (3.5-5.2); Alkaline Phosphatase 158 IU/L (40-130); Aspartate Amino Transferase 61 U/L (0-40); Blood Urea Nitrogen 24 mg/dL (6-20); Calcium 8.4 mg/dL (8.5-10.5); Carbon Dioxide 24 mmol/L (22-29); Chloride 106 mmol/L (98-107); Globulin 2.9 g/dL (1.3-4.6); Glomerular Filtration Rate 143.2 mL/min (90-130); Glucose 158 mg/dL (65-115); Osmolality Calculated 297 mOsm/kg (285-295); Sodium 140 mmol/L (136-145); Total Protein 6.2 g/dL (6.6-8.7)
[2021-04-14 09:29] LABS: Anion Gap 14.9 (5-19); Potassium 4.9 mmol/L (3.5-5.1)
--- NOTE | 2021-04-14 10:22 | PC.CHAP ---
Pastoral Care Encounter/Spiritual Assessment Type of Contact [] Declined tire changer visit [] Patient/Family/Request visit [] Outpatient visit [] Follow-up visit [] Physician referral [] Code/Alert [x] Routine visit [] Staff referral [] Actively dying [] Patient sleeping [] Family support [] [] Out of room [] Palliative care [] [] Receiving care in room [] Pre-surgical visit [] Trauma [] Long length of stay [x] ICU visit [x] Other: ventilator Relational/Emotional Strength [] Patient feels connected with others/family/visitors/staff [] Distress [] Loneliness/isolation [] Abandonment Spirituality of Patient [] Person of Neela [] Attends Bahai of their Neela [] Believes in Prayer [] Reads Bible or Presybeterian materials [] There are Spiritual issues to be addressed Flying Squad Worker Interventions [x] Prayer [] Active listening [] Non-anxious presence [] Spiritual/emotional support [] Crisis/trauma care [] Spiritual counseling [] Bereavement support [] Provided bereavement packet [] Provided Bible/devotional materials [] Provided toy/stuffed animal, coloring book to patient or family member [] Provided Communion [] Anointing/[place] [] Salvation [x] Completed spiritual assessment [] Other: Impact on Illness or Injury [] Angry [] Fearful [] Anxious [] Often cries [] Exhaustion [] Unable to work [] Unable to attend catholic [] Unable to walk/stand [] Unable to read [] Unable to drive [] Unable to eat/drink [] Unable to sleep [] Unable to be with family [] Patient intubated [] Other: Summary Time spent with patient
[2021-04-14 11:36] LABS: Glucose Point of Care 120 mg/dL (70-110)
[2021-04-14] MEDS: cefTRIAXone 1,000 MG in sodium chloride 0.9% (plus) 50 ML 100 MG IV (12:12)
--- NOTE | 2021-04-14 14:11 | P.PN_ITS ---
Subjective Subjective: Interval history: Patient was seen and examined this morning.Continues to require high supplemental oxygen.Continues to be extremely tachypneic. X-ray chest done today has shown new subcutaneous emphysema in the neck, no pneumothorax no pneumomediastinum. Vitals/I&O/Wt Last Vital Signs Temp 99.1 F 04/14/21 04:00 Pulse 93 04/14/21 12:30 Resp 38 H 04/14/21 12:30 BP 130/82 04/14/21 12:30 Pulse Ox 97 04/14/21 12:30 04/13/21 04/14/21 04/14/21 22:59 06:59 14:59 Intake Total 760.954 / 1560.534 121.538 / 1682.072 150 / 150 Output Total 1850 / 2550 700 / 3250 650 / 650 Balance -1089.046 / -989.466 -578.462 / -1567.928 -500 / -500 Weight last 48 hrs Weight 123.014 kg Physical Exam Const: COMMON NORMALS: patient oriented x3 HENMT: COMMON NORMALS: normocephalic and atraumatic HEAD & SCALP: normocephalic and atraumatic Resp: OTHER: Bilateral diminished breath sounds. Cardio: COMMON NORMALS: regular rate, regular rhythm, S1 normal heart sound present, S2 normal heart sound present, No gallops present (Cardio), No murmurs present (Cardio), No rub (Cardio) and Peripheral pulses 2+ throughout RATE: regular rate RHYTHM: regular rhythm HEART SOUNDS: S1 normal heart sound present and S2 normal heart sound present PERIPHERAL PULSES: Peripheral pulses 2+ throughout GI: COMMON NORMALS: Normal to inspection, nondistended, normoactive bowel sounds present and no masses AUSCULTATION: Yes normoactive bowel sounds RECTAL EXAM: Yes deferred Extremity: COMMON NORMALS: no clubbing, cyanosis or edema and no pedal edema Neuro: COMMON NORMALS: patient oriented x3 Urinary Catheter Management^: Taylor: Cath Placed During This Visit: yes Urinary Catheter Date of Insertion: 04/14/21 Urinary Catheter Time of Insertion: 12:41 Data : 04/14/21 08:50 04/14/21 08:50 A&P Assessment and plan (1) ARDS (adult respiratory distress syndrome): Status: Acute (2) COVID-19: Status: Acute (3) Hyperlipidemia: Status: Chronic Qualifiers: Hyperlipidemia type: mixed hyperlipidemia Qualified Code(s): E78.2 - Mixed hyperlipidemia (4) Hypertension: Status: Acute (5) Subcutaneous emphysema: Status: Acute Additional A&P Information Severe ARDS due to COVID-19 pneumonia: Severe diseases patient is requiring high oxygen supplementation currently. Procalcitonin, MRSA swab, Legionella and bacterial antigen negative. X-ray chest:( 04/14 ) New subcutaneous emphysema soft tissues of the neck. CT angio chest:Negative for pulmonary embolism. Widespread bilateral airspace disease. Repeat CT chest without contrast 04/14 : Blood culture: Negative Dexamethasone 6 mg IV daily. Remdesivir protocol for 5 days. Vitamin C, zinc. Tessalon Perles. DuoNebs every 6 hour, budesonide twice daily. Pulmonary toilet incentive spirometry and flutter valve. Initially on ceftriaxone and azithromycin. Ceftriaxone was discontinued on . He was started on vancomycin and Zosyn on . Given his worsening respiratory function there was need to broaden his antibiotic coverage. Received 1 dose of Actemra on April 11. On Lovenox therapeutic anticoagulation. Lasix as needed on Precedex drip. Ativan 2 mg IV every 4 hours as needed Morphine 1 mg IV every 2 hours as needed. Monitor inflammatory markers including CRP, D-dimer, ferritin, fibrinogen. Patient has failed to tolerate self proning. Hypertension: Goal blood pressure less than 140/90 mmHg with mean over 65. Blood pressures currently soft. For now hold off on to home dose of ibesartan. Hyperlipidemia: Continue with home dose. Full code status. Regular diet. Eliquis 5 mg to also help with DVT prophylaxis. Treatment plan discussed in detail with patient at bedside and with his over the phone. All the questions were answered. Attestations Medical Necessity Statement*: Patient needs to be in hospital for management of ARDS. Coding Level of Care Code Acute Ambulatory Technologist for Nithya Calhoun Diagnoses ARDS (adult respiratory distress syndrome) J80 COVID-19 U07.1 Hyperlipidemia E78.2 Hyperlipidemia type: mixed hyperlipidemia Hypertension I10 Subcutaneous emphysema T79.7XXA
[2021-04-14] MEDS: FUROsemide 10 mg/mL SDV 2mL 20 MG IVP (14:20)
[2021-04-14] MEDS: dexmedetomidine 400 MCG in sodium chloride 0.9% (100 ml) 100 ML 11.17 MCG IV ×2 (14:20→20:26)
--- NOTE | 2021-04-14 15:53 | XRR_ITS ---
PROCEDURE INFORMATION: Exam: XR Chest Exam date and time: 04/14/2021 3:53 PM Age: 51 years old Clinical indication: Condition or disease; Other: Covid; Additional info: Follow up TECHNIQUE: Imaging protocol: XR of the chest. Views: 1 view. COMPARISON: 1. CR (CHEST, ) 04/11/2021 2:08 PM 2. CR XR chest 1V portable [id number] 04/09/2021 2:[address] angio chest PE protcl [id number] 04/11/2021 4:36 PM 4. CR XR chest 2V* [id number] 11/25/2020 10:34 AM FINDINGS: Lungs: Low lung volumes are seen. There is interstitial congestion in the right lower lobe.. No consolidation. Pleural spaces: Unremarkable. No pleural effusion. No pneumothorax. Heart/Mediastinum: Unremarkable. No cardiomegaly. Bones/joints: Unremarkable. Soft tissues: There is apparent subcutaneous emphysema in the soft tissues of the neck which was not present on prior examination. The etiology of this finding is uncertain. XR/XR chest 1V portable [id number] IMPRESSION: 1. Right lower lobe interstitial congestion. 2. New subcutaneous emphysema soft tissues of the neck. 3. Otherwise negative examination
[2021-04-14 16:57] LABS: Glucose Point of Care 150 mg/dL (70-110)
[2021-04-14] MEDS: azithromycin 500 MG in sodium chloride 0.9% 250 ML 250 MG IV (18:13)
[2021-04-14] MEDS: enoxaparin 120 mg/0.8 mL Syringe SUBCUT (18:13)
[2021-04-14] MEDS: dexamethasone 4 mg/mL INJ 6 MG IVP (18:13)
[2021-04-14] MEDS: remdesivir 100 MG in sodium chloride 0.9% (100 ml) 100 ML IV (18:26)
--- NOTE | 2021-04-14 18:38 | PC.NURSE ---
Patient has remained on bipap this shift. Bipap was taken off to give PO medication and oxygen levals dropped to low 80's but quickly recovered when put back on. Patient was given PRN medications and semi proned later in shift. Oxygen levels increased to 97%. Patient then turned over to his back and with a respiratory rate of 40-50. Intubation medications brought to bedside and dr. Story stated he wanted to give patient time to recover. Respirations lowered to 30 and oxygen level was around 89%. Around 1844 bipap tubing became disconnected ad when it was connected back oxygen level was at 60%. Tubing was connected and oxygen returned to 88% Dr. Story at bedside.
--- NOTE | 2021-04-14 20:51 | PC.PHAR ---
Vancomycin is dosed at 1500mg IVPB every 8 hours to produce a predicted trough level of 12.92 (population based pharmacokinetic analysis). A trough level has been ordered from the lab to be obtained before the fourth dose to confirm and adjust if needed.
--- NOTE | 2021-04-14 20:56 | CTR_ITS ---
PROCEDURE INFORMATION: Exam: CT Chest Without Contrast; Diagnostic Exam date and time: 04/14/2021 8:56 PM Age: 51 years old Clinical indication: Shortness of breath; Patient HX: Subcu air. Hypoxia. Covid +. ; Additional info: New subcutaneous emphysema TECHNIQUE: Imaging protocol: Diagnostic computed tomography of the chest without contrast. Radiation optimization: All CT scans at this facility use at least one of these dose optimization techniques: automated exposure control; mA and/or kV adjustment per patient size (includes targeted exams where dose is matched to clinical indication); or iterative reconstruction. COMPARISON: 1. CT angio chest PE protcl [id number] 04/11/2021 4:[address] chest w con* [id number] 01/04/2018 7:09 PM RADIATION DOSE METRICS: Total DLP (mGy-cm): 1069.88 FINDINGS: Lungs: Extensive bilateral pulmonary infiltrates with newly developing areas of consolidation dependently. Pleural spaces: Small pneumothorax noted on the right. Heart: Unremarkable. No cardiomegaly. No pericardial effusion. Mediastinal space: Pneumomediastinum noted. Aorta: Unremarkable. No aortic aneurysm. Lymph nodes: Hilar lymph node calcifications are noted. Gallbladder and bile ducts: Gallstones noted in gallbladder. Bones/joints: No acute fracture. Soft tissues: Soft tissue emphysema most conspicuous in the neck and milder at upper thorax. CT/CT chest wo con [id number] IMPRESSION: Small right pneumothorax estimated at 10%. Extensive bilateral pulmonary infiltrates are again noted with some newly developing areas of consolidation. Pneumomediastinum. Cholelithiasis. Radiation Dose CTDIVOL = (mGy): DLP = 1069.88 (mGy-cm)
[2021-04-14 21:02] LABS: Glucose Point of Care 188 mg/dL (70-110)
[2021-04-14] MEDS: piperacillin-tazobactam 3.375 GM in sodium chloride 0.9% (plus) 50 ML IV (21:24)
[2021-04-15] VITALS (65 sets, daily range): BP systolic 106–153; BP diastolic 67–90; PULSE 74–117; RESP 23–43; TEMP 36.4–37.3; O2SAT 79–95
[2021-04-15] MEDS: dexmedetomidine 400 MCG in sodium chloride 0.9% (100 ml) 100 ML 16.75 MCG IV ×3 (01:10→17:06)
[2021-04-15] MEDS: vancomycin 1,500 MG/300 ML PIGGYBACK 150 MG IV ×3 (01:10→17:54)
[2021-04-15] MEDS: ipratropium-albuterol 3 mL Neb INHALATION ×6 (03:19→23:26)
[2021-04-15] MEDS: piperacillin-tazobactam 3.375 GM in sodium chloride 0.9% (plus) 50 ML IV ×3 (03:38→19:23)
[2021-04-15 04:54] LABS: Basophils # 0.1 10^3/uL (0.0-0.1); Basophils % 0.3 %; Eosinophils % 0.1 %; Hematocrit 45.4 % (42.0-52.0); Hemoglobin 15.1 g/dL (11.7-16.6); Lymphocytes # 0.6 10^3/uL (0.8-4.8); Lymphocytes % 2.5 %; Mean Corpuscular HGB Conc 33.3 g/dL (30.0-36.0); Mean Corpuscular Hemoglobin 31.6 pg (28.0-34.0); Mean Platelet Volume 10.9 fL (7.4-10.4); Monocytes # 0.4 10^3/uL (0.2-0.9); Monocytes % 1.5 %; Neutrophils % 94.1 %; Nucleated Red Blood Cells % 0 %; Platelet Count 98 10^3/cmm (130-400); Red Blood Count 4.78 10^6/uL (4.1-5.3); Red Cell Distribution Width 12.3 % (12.1-15.1); White Blood Count 23.4 10^3/uL (4.0-10.0)
--- NOTE | 2021-04-15 05:00 | XR_ITS ---
WS: [id number] Portable AP semiupright chest, 04/15/2021 Clinical Data: subcutaneous emphysema soft tissues of the neck,PNA Comparison: Portable chest, 04/14/2021 Findings: Bilateral pulmonary opacities have increased slightly compared to yesterday. There is a sma ll right apical pneumothorax of 5%. The heart is normal. There is subcutaneous emphysema in the supra clavicular regions are unchanged. Monitor leads are on the chest wall. XR/XR chest 1V portable [id number] Impression: 1. Slight increase in bilateral pulmonary opacities. 2. Small right apical pneumothorax. 3. No change in subcutaneous emphysema in the supraclavicular regions.
[2021-04-15 05:14] LABS: Alanine Aminotransferase 61 U/L (0-41); Albumin Level 3.3 g/dL (3.5-5.2); Alkaline Phosphatase 122 IU/L (40-130); Aspartate Amino Transferase 41 U/L (0-40); Blood Urea Nitrogen 24 mg/dL (6-20); C Reactive Protein 22.2 mg/L (0.0-4.9); Calcium 8.1 mg/dL (8.5-10.5); Carbon Dioxide 26 mmol/L (22-29); Chloride 103 mmol/L (98-107); Creatinine Clr Calc Pharmacy 152.5609; Globulin 2.8 g/dL (1.3-4.6); Glomerular Filtration Rate 102.7 mL/min (90-130); Glucose 203 mg/dL (65-115); Osmolality Calculated 300 mOsm/kg (285-295); Sodium 140 mmol/L (136-145); Total Bilirubin 0.7 mg/dL (0.15-1.2); Total Protein 6.1 g/dL (6.6-8.7)
[2021-04-15 05:29] LABS: Ferritin 1452 ng/mL (30-400)
[2021-04-15 05:38] LABS: Erythrocyte Sedimentation Rate 4 mm/hr (0-10)
[2021-04-15] MEDS: enoxaparin 120 mg/0.8 mL Syringe SUBCUT ×2 (06:01→18:03)
[2021-04-15 08:13] LABS: Glucose Point of Care 182 mg/dL (70-110)
[2021-04-15] MEDS: atorvastatin 40 mg Tablet 10 MG PO (08:17)
[2021-04-15] MEDS: ascorbic acid 500 mg Tablet 1000 MG PO ×2 (08:17→18:02)
[2021-04-15] MEDS: ferrous gluconate 324 mg Tablet PO ×2 (08:17→18:02)
[2021-04-15] MEDS: zinc gluconate 50 mg Tablet PO (08:17)
[2021-04-15] MEDS: benzonatate 100 mg Capsule PO ×3 (08:17→21:12)
[2021-04-15] MEDS: famotidine 20 mg Tablet PO ×2 (08:18→18:02)
--- NOTE | 2021-04-15 08:41 | PC.NURSE ---
At 1730 on 04/14 RSI kit was pulled from [facility] and returned this AM. Called pharmacy and was told to hold Rocuronium and Succinylcholine until later in shift.
[2021-04-15] MEDS: budesonide 0.5 mg/2 mL Neb INHALATION ×2 (08:49→20:46)
--- NOTE | 2021-04-15 10:07 | PC.CHAP ---
Pastoral Care Encounter/Spiritual Assessment Type of Contact [] Declined stationary engineer apprentice visit [] Patient/Family/Request visit [] Outpatient visit [] Follow-up visit [] Physician referral [] Code/Alert [x] Routine visit [] Staff referral [] Actively dying [] Patient sleeping [] Family support [] [] Out of room [] Palliative care [] [] Receiving care in room [] Pre-surgical visit [] Trauma [] Long length of stay [x] ICU visit [x] Other:ventilator Relational/Emotional Strength [] Patient feels connected with others/family/visitors/staff [] Distress [] Loneliness/isolation [] Abandonment Spirituality of Patient [] Person of Neela [] Attends Christianity of their Neela [] Believes in Prayer [] Reads Bible or Gnosticism materials [] There are Spiritual issues to be addressed Systems Architect Interventions [x] Prayer [] Active listening [] Non-anxious presence [] Spiritual/emotional support [] Crisis/trauma care [] Spiritual counseling [] Bereavement support [] Provided bereavement packet [] Provided Bible/devotional materials [] Provided toy/stuffed animal, coloring book to patient or family member [] Provided Communion [] Anointing/[place] [] Salvation [x] Completed spiritual assessment [] Other: Impact on Illness or Injury [] Angry [] Fearful [] Anxious [] Often cries [] Exhaustion [] Unable to work [] Unable to attend yazidism [] Unable to walk/stand [] Unable to read [] Unable to drive [] Unable to eat/drink [] Unable to sleep [] Unable to be with family [] Patient intubated [] Other: Summary Time spent with patient
--- NOTE | 2021-04-15 11:42 | PC.NURSE ---
MIDLINE RIGHT arm placed per request. Ready for use.
--- NOTE | 2021-04-15 11:57 | PM.PN ---
Subjective Subjective: Interval history: Patient was seen and examined this morning.Continues to require high supplemental oxygen.Continues to be extremely tachypneic. Vitals/I&O/Wt Last Vital Signs Temp 97.5 F L 04/15/21 07:30 Pulse 89 04/15/21 11:27 Resp 28 H 04/15/21 11:22 BP 132/87 04/15/21 10:00 Pulse Ox 91 04/15/21 11:24 04/14/21 04/15/21 04/15/21 22:59 06:59 14:59 Intake Total 520.743 / 739.521 700.375 / 1439.896 554 / 554 Output Total 1050 / 1700 1775 / 3475 Balance -529.257 / -960.479 -1074.625 / -2035.104 554 / 554 Weight last 48 hrs Weight 118.115 kg Weight 121.3 kg Physical Exam Const: COMMON NORMALS: patient oriented x3 HENMT: COMMON NORMALS: normocephalic and atraumatic HEAD & SCALP: normocephalic and atraumatic Resp: OTHER: Bilateral diminished breath sounds. Cardio: COMMON NORMALS: regular rate, regular rhythm, S1 normal heart sound present, S2 normal heart sound present, No gallops present (Cardio), No murmurs present (Cardio), No rub (Cardio) and Peripheral pulses 2+ throughout RATE: regular rate RHYTHM: regular rhythm HEART SOUNDS: S1 normal heart sound present and S2 normal heart sound present PERIPHERAL PULSES: Peripheral pulses 2+ throughout GI: COMMON NORMALS: Normal to inspection, nondistended, normoactive bowel sounds present and no masses AUSCULTATION: Yes normoactive bowel sounds RECTAL EXAM: Yes deferred Extremity: COMMON NORMALS: no clubbing, cyanosis or edema and no pedal edema Neuro: COMMON NORMALS: patient oriented x3 Urinary Catheter Management^: Taylor: Cath Placed During This Visit: yes Reason for Continuing Indwelling Catheter: Accurate Measurement of Urinary Output in Critically Ill Patients Urinary Catheter Date of Insertion: 04/14/21 Urinary Catheter Time of Insertion: 12:41 Data : 04/15/21 04:35 04/15/21 04:35 A&P Assessment and plan (1) ARDS (adult respiratory distress syndrome): Status: Acute (2) COVID-19: Status: Acute (3) Hyperlipidemia: Status: Chronic Qualifiers: Hyperlipidemia type: mixed hyperlipidemia Qualified Code(s): E78.2 - Mixed hyperlipidemia (4) Hypertension: Status: Acute (5) Subcutaneous emphysema: Status: Acute (6) Pneumothorax: Status: Acute (7) Pneumomediastinum: Status: Acute Additional A&P Information Severe ARDS due to COVID-19 pneumonia: Procalcitonin, MRSA swab, Legionella and bacterial antigen negative. CT angio chest:Negative for pulmonary embolism. Widespread bilateral airspace disease. Repeat CT chest without contrast 04/14 :Small right pneumothorax estimated at 10%.Pneumomediastinum. Soft tissue emphysema most conspicuous in the neck and milder at upper thorax. Monitor serial chest x-ray: Blood culture: Negative Dexamethasone 6 mg IV daily. Remdesivir protocol for 5 days. Vitamin C, zinc. Tessalon Perles. DuoNebs every 6 hour, budesonide twice daily. Pulmonary toilet incentive spirometry and flutter valve. Initially on ceftriaxone and azithromycin. Ceftriaxone was discontinued on . He was started on vancomycin and Zosyn on . Given his worsening respiratory function there was need to broaden his antibiotic coverage. Received 1 dose of Actemra on April 11. On Lovenox therapeutic anticoagulation. Lasix as needed on Precedex drip. Ativan 2 mg IV every 4 hours as needed Morphine 1 mg IV every 2 hours as needed. Monitor inflammatory markers including CRP, D-dimer, ferritin, fibrinogen. Patient has failed to tolerate self proning. Continue to be on noninvasive ventilation (BiPAP/heated high flow oxygen through nasal cannula) Appreciate Datar Input Hypertension: Goal blood pressure less than 140/90 mmHg with mean over 65. Blood pressures currently soft. For now hold off on to home dose of ibesartan. Hyperlipidemia: Continue with home dose. Full code status. Regular diet. DVT PPX: On Lovenox. Family has been updated Attestations Medical Necessity Statement*: Patient needs to be in hospital for management of severe ARDS. Coding Level of Care Code Acute Business Taxes Specialist for Nithya Calhoun Diagnoses ARDS (adult respiratory distress syndrome) J80 COVID-19 U07.1 Hyperlipidemia E78.2 Hyperlipidemia type: mixed hyperlipidemia Hypertension I10 Subcutaneous emphysema T79.7XXA Pneumothorax J93.9 Pneumomediastinum J98.2
[2021-04-15 12:07] LABS: Glucose Point of Care 143 mg/dL (70-110)
--- NOTE | 2021-04-15 13:59 | XR_ITS ---
WS: [id number] Portable AP upright chest, 04/15/2021, 1423 hours. Clinical Data: follow up on pneumothorax Comparison: None. Findings: The bilateral pulmonary opacities remain the same. There is a small right apical pneumothor ax of 5%. The heart size is same. There is a small catheter ending in the right axilla. Monitor leads are on the chest wall. Subcutaneous emphysema in the supraclavicular regions remains the same. XR/XR chest 1V portable [id number] Impression: 1. No change in bilateral pulmonary opacities. 2. No change in small right apical pneumothorax. 3. No change in bilateral supraclavicular subcutaneous emphysema.
[2021-04-15] MEDS: morphine 4 mg/mL SDV 1 mL 1 MG IVP (16:13)
--- NOTE | 2021-04-15 16:15 | PC.NURSE ---
MAR other delay related to nurse dong other care for this patient and care on another patient.
[2021-04-15] MEDS: dexamethasone 4 mg/mL INJ 6 MG IVP (18:02)
[2021-04-15] MEDS: azithromycin 500 MG in sodium chloride 0.9% 250 ML 250 MG IV (18:03)
[2021-04-15] MEDS: remdesivir 100 MG in sodium chloride 0.9% (100 ml) 100 ML IV (18:08)
[2021-04-15 19:17] LABS: Glucose Point of Care 139 mg/dL (70-110)
--- NOTE | 2021-04-15 20:18 | PM.CONSULT ---
Providers/Reason For Consult Consulting Physician/Specialty*: Mohan Wolff MD/ Pulmonary critical care Reason for Consult*: Acute hypoxic respiratory failure secondary to COVID-19 pneumonia Requesting Physician: Johan Story MD Attending Physician: Johan Story MD Primary Care Provider: NGUYEN Noe History of Present Illness History of Present Illness Andre Cook is a 51 year old male with past medical history of hypertension, strong family history of CAD presented to the ER 04/12/21 with worsening shortness of breath. He was seen in ER 2 days ago on April 09 with history of 5 days of fever, cough and shortness of breath at that time he was tested positive for Covid 4 days ago 04/06/21. He was discharged from the ER as he was not hypoxic at that time. He started having severe shortness of breath so called EMS. On arrival with the EMS he was saturating 84% next placed on 6 L nonrebreather and brought to the ER. Admitted to ICU for acute hypoxic respiratory failure secondary to COVID-19 pneumonia. Due to increasing requirement of oxygen he was placed on BiPAP and on 04/14/2021 he developed subcutaneous emphysema in the neck and upper thorax, pneumomediastinum and small pneumothorax confirmed with CT chest. Pulmonary health care consulted for subcutaneous emphysema in the neck and upper thorax, pneumomediastinum and small pneumothorax in patient with acute hypoxic respiratory failure secondary to COVID-19 pneumonia Today patient seen at bedside in ICU -Saturating 94% on BiPAP 14/8 and 100% FiO2 -Did not tolerate high flow and even semiproning -Serial chest x-ray did not show any worsening of small apical pneumothorax or subcutaneous emphysema -Labs and imaging reviewed and pertinent findings incorporated in the assessment and plan Review of Systems General: Reports: 10 or more systems reviewed and unremarkable except in HPI and below Meds/Allergies Home Medications and Allergies Home Medications Medication Instructions Recorded Confirmed Last Taken Type omeprazole magnesium 20 mg 20 mg PO DAILY 02/12/20 04/13/21 04/09/21 History tablet,delayed release nitroglycerin 0.4 mg sublingual 0.4 mg SUBLINGUAL Q5M PRN 30 Days 11/25/20 04/13/21 Unknown Rx tablet #30 tab albuterol sulfate 2.5 mg INHALATION Q4H PRN 30 Days 01/15/21 04/13/21 04/09/21 Rx #75 ml albuterol sulfate 90 mcg/actuation 2 puff INHALATION Q6H PRN 30 Days 01/15/21 04/13/21 Unknown Rx aerosol inhaler #6.7 gm atorvastatin 10 mg tablet 10 mg PO DAILY 30 Days #30 tab 01/15/21 04/13/21 04/08/21 Rx budesonide-formoterol HFA 160 2 puff INHALATION BID 30 Days #6 gm 01/15/21 04/13/21 Unknown Rx mcg-4.5 mcg/actuation aerosol inhaler cetirizine 10 mg tablet 10 mg PO DAILY 30 Days #30 tab 01/15/21 04/13/21 04/09/21 Rx irbesartan 150 mg tablet 150 mg PO DAILY 30 Days #30 tab 01/15/21 04/13/21 04/09/21 Rx meloxicam 15 mg tablet 15 mg PO DAILY 30 Days #30 tab 01/15/21 04/13/21 04/09/21 Rx montelukast 10 mg tablet 10 mg PO DAILY 30 Days #30 tab 01/15/21 04/13/21 04/08/21 Rx multivitamin 1 tab PO DAILY 04/09/21 04/13/21 Unknown History Allergies Allergy/AdvReac Type Severity Reaction Status Date / Time Sulfa (Sulfonamide Allergy Unknown Verified 04/02/21 14:06 Antibiotics) Current Medications Current Medications Generic Name Dose Route Start Last Admin Trade Name Freq PRN Reason Stop Dose Admin Acetaminophen 650 mg 04/11/21 18:25 04/13/21 22:45 Acetaminophen 325 Mg Tablet PO 650 mg Q6H PRN Administration Mild/Mod Pain Or Temp >/= 101 Albuterol/Ipratropium 3 ml 04/12/21 12:00 04/15/21 15:56 Ipratropium-Albuterol 3 Ml Neb INHALATION 3 ml Q4H.RESPIRATORY ROCCO Administration Ascorbic Acid 1,000 mg 04/11/21 18:25 04/15/21 18:02 Ascorbic Acid 500 Mg Tablet PO 1,000 mg BID ROCCO Administration Atorvastatin Calcium 10 mg 04/12/21 09:00 04/15/21 08:17 Atorvastatin 40 Mg Tablet PO 10 mg DAILY ROCCO Administration Benzonatate 100 mg 04/11/21 21:00 04/15/21 16:15 Benzonatate 100 Mg Capsule PO 100 mg TID ROCCO Administration Budesonide 0.5 mg 04/11/21 18:00 04/15/21 08:49 Budesonide 0.5 Mg/2 Ml Neb INHALATION 0.5 mg BID ROCCO Administration Dexamethasone 6 mg 04/11/21 18:25 04/15/21 18:02 Dexamethasone 4 Mg/Ml Inj IVP 6 mg Q24H ROCCO Administration Enoxaparin Sodium 120 mg 04/14/21 19:00 04/15/21 18:03 Enoxaparin 120 Mg/0.8 Ml Syringe SUBCUT 120 mg Q12H ROCCO Administration Famotidine 20 mg 04/13/21 18:00 04/15/21 18:02 Famotidine 20 Mg Tablet PO 20 mg BID ROCCO Administration Ferrous Gluconate 324 mg 04/11/21 18:25 04/15/21 18:02 Ferrous Gluconate 324 Mg Tablet PO 324 mg BIDWM ROCCO Administration Azithromycin 500 mg/ Sodium 250 mls @ 250 mls/hr 04/11/21 19:00 04/15/21 18:03 Chloride IV 250 mls/hr Q24H ROCCO Administration Protocol Dexmedetomidine HCl 400 mcg/ 104 mls @ 0 mls/hr 04/12/21 10:45 04/15/21 17:06 Sodium Chloride IV 0.6 mcg/kg/hr .Q0M ROCCO 16.75 mls/hr Administration Protocol Per Protocol Piperacillin Sod/Tazobactam 50 mls @ 12.5 mls/hr 04/14/21 20:30 04/15/21 19:23 Sod 3.375 gm/ Sodium Chloride IV 12.5 mls/hr Q8H ROCCO Administration Protocol Vancomycin/PEG/NADA/Lysine/Water 1,500 mg in 300 mls @ 150 mls/hr 04/15/21 01:00 04/15/21 17:54 Vancocin IV 150 mls/hr Q8H ROCCO Administration Insulin Aspart 0 unit 04/11/21 18:25 04/15/21 18:03 Insulin Aspart 100 Unit/1 Ml SUBCUT Not Given WM&BEDTIME [facility] Protocol Lanolin 1 applic 04/13/21 14:55 04/13/21 17:42 Lanolin Oint 7 Gm TOPICAL 1 applic PRN PRN Administration DRYNESS Lorazepam 2 mg 04/13/21 19:12 04/14/21 16:45 Lorazepam 2 Mg/Ml Inj 1 Ml IVP 2 mg Q4H PRN Administration ANXIETY Morphine Sulfate 1 mg 04/12/21 10:46 04/15/21 16:13 Morphine 4 Mg/Ml Sdv 1 Ml IVP 1 mg Q2H PRN Administration SEVERE PAIN Ondansetron HCl 4 mg 04/11/21 18:25 04/12/21 08:34 Ondansetron 2 Mg/Ml Sdv 2 Ml IVP 4 mg Q8H PRN Administration vomiting, or N/V if npo Zinc Gluconate 50 mg 04/12/21 09:00 04/15/21 08:17 Zinc Gluconate 50 Mg Tablet PO 50 mg DAILY ROCCO Administration PFSH Acute PFSH: Medical History Acute carpal tunnel syndrome of left wrist Cervical spinal stenosis Diverticulitis Elbow arthritis Environmental and seasonal allergies Essential (primary) hypertension GERD (gastroesophageal reflux disease) Hyperlipidemia Hypertension Left inguinal hernia Lumbar disc disease with radiculopathy Mild intermittent asthma Surgical History H/O oral surgery H/O varicose vein stripping History of ankle surgery History of decompression of ulnar nerve Hx of carpal tunnel repair S/P vasectomy Status post endovenous radiofrequency ablation (RFA) of saphenous vein Family History Other Diabetes Heart disease Hypertension Social History Smoking and tobacco status: never smoked Alcohol intake: never Adopted: No Household members: spouse Housing: House Marital status: Number of children: 2 Highest education level completed: High School Graduate Current occupational status: employed Pets and animals: Yes History of recent travel: No Current gender identity: Male Vitals/I&O/Wt Last Vital Signs Temp 97.5 F L 04/15/21 07:30 Pulse 110 H 04/15/21 18:30 Resp 32 H 04/15/21 18:30 BP 122/80 04/15/21 18:30 Pulse Ox 90 04/15/21 18:30 04/15/21 04/15/21 04/15/21 06:59 14:59 22:59 Intake Total 700.375 / 1439.896 654 / 654 254 / 908 Output Total 1775 / 3475 900 / 900 Balance -1074.625 / -2035.104 654 / 654 -646 / 8 Weight last 48 hrs Weight 260 lb 6.4 oz Weight 267 lb 6.731 oz Physical Exam Narrative: EXAM NARRATIVE: General: alert-in respiratory distress BiPAP 14/800% FiO2 Pain: 8/10 right scapula HEENT: conj clear, EOMI, PERRL, mmm, Neck: supple, no meningismus Heme: no cervical LAP Pulmonary: CTAB, no wheezing, rhonchi, crackles Cardiovascular: rrr, nl s1s2, no mrg Abdomen: soft, nt, nd, no r/g, bs+ Extremities: pulses +, no edema, no c/c : no CVA tenderness Skin: intact, no rash MSK: no back or neck pain Neurologic: grossly intact Urinary Catheter Management^: Taylor: Cath Placed During This Visit: yes Reason for Continuing Indwelling Catheter: Accurate Measurement of Urinary Output in Critically Ill Patients Urinary Catheter Date of Insertion: 04/14/21 Urinary Catheter Time of Insertion: 12:41 Data Labs: Other Labs: Laboratory Results WBC 23.4 10^3/uL (4.0 -10.0) H 04/15/21 04:35 Corrected WBC Cancelled 04/11/21 14:50 RBC 4.78 10^6/uL (4.1 -5.3) 04/15/21 04:35 Hgb 15.1 g/dL (11.7-1 6.6) 04/15/21 04:35 Hct 45.4 % (42.0-52.0 ) 04/15/21 04:35 MCV 95.0 fL (80-94) H 04/15/21 04:35 MCH 31.6 pg (28.0-34. 0) 04/15/21 04:35 MCHC 33.3 g/dL (30.0-3 6.0) 04/15/21 04:35 RDW 12.3 % (12.1-15.1 ) 04/15/21 04:35 Plt Count 98 10^3/cmm (130- 400) L 04/15/21 04:35 MPV 10.9 fL (7.4-10.4 ) H 04/15/21 04:35 Gran % Cancelled 04/11/21 14:50 Neut % (Auto) 94.1 % 04/15/21 04:35 Lymph % (Auto) 2.5 % 04/15/21 04:35 Davie % (Auto) 1.5 % 04/15/21 04:35 Eos % (Auto) 0.1 % 04/15/21 04:35 Baso % (Auto) 0.3 % 04/15/21 04:35 Neut # (Auto) 22.00 10^3/uL (1. 8-7.7) H 04/15/21 04:35 Lymph # (Auto) 0.6 10^3/uL (0.8- 4.8) L 04/15/21 04:35 Davie # (Auto) 0.4 10^3/uL (0.2- 0.9) 04/15/21 04:35 Eos # (Auto) 0.0 10^3/uL (0.0- 0.8) 04/15/21 04:35 Baso # (Auto) 0.1 10^3/uL (0.0- 0.1) 04/15/21 04:35 Absolute Gran (aut o) Cancelled 04/11/21 14:50 Nucleated RBC % (a uto) 0 % 04/15/21 04:35 Nucleated RBCs # 0.0 /100WBC 04/15/21 04:35 ESR 4 mm/hr (0-10) 04/15/21 04:35 PT 19.70 SECONDS (12 .1-14.9) H 04/14/21 08:50 INR 1.63 (0.8-1.2) H 04/14/21 08:50 APTT 30.6 SECONDS (23. 9-36.7) 04/14/21 08:50 Fibrinogen 53 mg/dL (174-498 ) L 04/14/21 04:30 D-Dimer >= 20.00 ug/mIFEU (0-0.59) H 04/14/21 04:30 Specimen Type Arterial 04/14/21 06:05 Sample Site Radial, right 04/14/21 06:05 ABG pH 7.42 (7.35-7.45) 04/14/21 06:05 ABG pCO2 37.2 mmHg (35-45) 04/14/21 06:05 ABG pO2 58.0 mmHg (80.0-1 00.0) L 04/14/21 06:05 ABG HCO3 24.2 mmol/L (22-2 6) 04/14/21 06:05 ABG O2 Saturation 90.9 04/14/21 06:05 ABG Base Excess 0.0 mmol/L (-2.0- 2.0) 04/14/21 06:05 Killian Test Pos 04/14/21 06:05 A-a O2 Gradient 79.1 mmHg (5-10) H 04/14/21 06:05 Hematocrit 46.2 % (42-52) 04/14/21 06:05 Hgb O2 Saturation 89.5 % (95-100) L 04/14/21 06:05 Carboxyhemoglobin 0.9 %THgb (0.4-20 .1) 04/14/21 06:05 Methemoglobin 0.6 % (0.4-1.5) 04/14/21 06:05 Total Hemoglobin 15.1 g/dL (14-18) 04/14/21 06:05 Sodium 141.0 mmol/L (131 -143) 04/14/21 06:05 Potassium 4.9 mmol/L (3.5-5 .0) 04/14/21 06:05 Glucose 169.0 mg/dL (70-1 15) H 04/14/21 06:05 Ionized Calcium 1.2 mmol/L (1.1-1 .4) 04/14/21 06:05 O2 Delivery Device Bipap 04/14/21 06:05 O2 Liters/Min 6.0 % 04/11/21 14:12 FiO2 100.0 % 04/14/21 06:05 Kelly Machine Operator ID Haris 04/14/21 06:05 Sodium 140 mmol/L (136-1 45) 04/15/21 04:35 Potassium 5.0 mmol/L (3.5-5 .1) 04/15/21 04:35 Chloride 103 mmol/L (98-10 7) 04/15/21 04:35 Carbon Dioxide 26 mmol/L (22-29) 04/15/21 04:35 Anion Gap 16.0 (5-19) 04/15/21 04:35 BUN 24 mg/dL (6-20) H 04/15/21 04:35 Creatinine 0.8 mg/dL (0.7-1. 2) 04/15/21 04:35 GFR Calculation 102.7 mL/min (90- 130) 04/15/21 04:35 Glucose 203 mg/dL (65-115 ) H 04/15/21 04:35 POC Glucose 139 mg/dL (70-110 ) H 04/15/21 17:34 Estimat Average Gl ucose 128 04/12/21 06:33 Hemoglobin A1c 6.1 % (4.0-6.0) H 04/12/21 06:33 Calculated Osmolal ity 300 mOsm/kg (285- 295) H 04/15/21 04:35 Lactic Acid 1.4 mmol/L (0.5-2 .2) 04/11/21 14:50 Calcium 8.1 mg/dL (8.5-10 .5) L 04/15/21 04:35 Phosphorus 2.1 mg/dL (2.5-4. 5) L 04/12/21 06:33 Magnesium 2.0 mg/dL (1.7-2. 3) 04/12/21 06:33 Iron 15 ug/dL (59-158) L 04/11/21 14:50 TIBC 177 mcg/dl 04/11/21 14:50 % Saturation 8.4 % (20-50) L 04/11/21 14:50 Unsat Iron Binding 162 ug/dL (112-34 7) 04/11/21 14:50 Ferritin 1452 ng/mL (30-40 0) H 04/15/21 04:35 Total Bilirubin 0.7 mg/dL (0.15-1 .2) 04/15/21 04:35 AST 41 U/L (0-40) H 04/15/21 04:35 ALT 61 U/L (0-41) H 04/15/21 04:35 Alkaline Phosphata se 122 IU/L (40-130) 04/15/21 04:35 Lactate Dehydrogen ase 1264 U/L (135-225 ) H 04/14/21 04:30 Creatine Kinase 197 U/L (39-308) 04/14/21 04:30 C-Reactive Protein 22.2 mg/L (0.0-4. 9) H 04/15/21 04:35 NT-Pro-B Natriuret Pep 173 pg/mL (0-125) H 04/11/21 14:50 Total Protein 6.1 g/dL (6.6-8.7 ) L 04/15/21 04:35 Albumin 3.3 g/dL (3.5-5.2 ) L 04/15/21 04:35 Globulin 2.8 g/dL (1.3-4.6 ) 04/15/21 04:35 Procalcitonin 0.06 ng/mL (0-0.5 ) 04/13/21 05:49 TSH 0.42 uIU/mL (0.27 -4.20) 04/11/21 14:50 Urine Color Yellow (Yellow) 04/11/21 20:45 Urine Appearance Clear (CLEAR) 04/11/21 20:45 Urine pH 5 (5-7) 04/11/21 20:45 Ur Specific Gravit y 1.005 (1.005-1.0 30) 04/11/21 20:45 Urine Protein 1+ (Negative) H 04/11/21 20:45 Urine Glucose (UA) Trace (Normal) H 04/11/21 20:45 Urine Ketones Negative (Negati ve) 04/11/21 20:45 Urine Blood 2+ (Negative) H 04/11/21 20:45 Urine Nitrate Negative (Negati ve) 04/11/21 20:45 Urine Bilirubin Neg (Negative) 04/11/21 20:45 Urine Urobilinogen Norm mg/dL (Negat trudy) 04/11/21 20:45 Ur Leukocyte Mildred ase Negative (Negati ve) 04/11/21 20:45 Urine RBC 5-10 /hpf (0-2) H 04/11/21 20:45 Urine WBC 0-4 /hpf (0-5) H 04/11/21 20:45 Ur Squamous Epith Cells 0-4 /hpf (0-5) H 04/11/21 20:45 Amorphous Sediment Not Reportable 04/11/21 20:45 Urine Bacteria Trace /hpf (NONE) 04/11/21 20:45 Impressions Chest CTA 04/11/21 15:29 IMPRESSION: 1. Negative for pulmonary embolism. 2. Widespread bilateral airspace disease. 3. Commonly reported imaging features of COVID-19 pneumonia are present. Other processes such as influenza pneumonia and organizing pneumonia, as can be seen with drug toxicity and connective tissue disease, can cause a similar imaging pattern. (Reference: Kentrell) REFERENCES: Kentrell Lynch, et al., Radiological Society of [place] Expert Consensus Statement on Reporting Chest CT Findings Related to COVID-19. Endorsed by the Society of Thoracic Radiology, the [place] [employer], and RSNA. Published January 16, 2020. Radiation Dose CTDIVOL = (mGy): DLP = 615.51 (mGy-cm) Chest CT 04/14/21 20:56 IMPRESSION: Small right pneumothorax estimated at 10%. Extensive bilateral pulmonary infiltrates are again noted with some newly developing areas of consolidation. Pneumomediastinum. Cholelithiasis. Radiation Dose CTDIVOL = (mGy): DLP = 1069.88 (mGy-cm) ADDENDUM: 04/15/21 0442 Pneumothorax findings called to ordering physician. Radiation Dose CTDIVOL = (mGy): DLP = 1069.88 (mGy-cm) Chest X-Ray 04/15/21 13:59 Impression: 1. No change in bilateral pulmonary opacities. 2. No change in small right apical pneumothorax. 3. No change in bilateral supraclavicular subcutaneous emphysema. A&P Assessment and plan (1) Acute respiratory failure due to COVID-19: Status: Acute (2) ARDS (adult respiratory distress syndrome): Status: Acute (3) Pneumomediastinum: Status: Acute (4) Pneumothorax: Status: Acute Qualifiers: Pneumothorax type: spontaneous, secondary Qualified Code(s): J93.12 - Secondary spontaneous pneumothorax (5) Subcutaneous emphysema: Status: Acute Qualifiers: Encounter type: initial encounter Qualified Code(s): T79.7XXA - Traumatic subcutaneous emphysema, initial encounter (6) Hypertension: Status: Acute Qualifiers: Hypertension type: essential hypertension Qualified Code(s): I10 - Essential (primary) hypertension (7) Mild intermittent asthma: Status: Chronic Qualifiers: Asthma complication type: uncomplicated Qualified Code(s): J45.20 - Mild intermittent asthma, uncomplicated (8) Abnormal LFTs: Status: Acute Overall: 51-year-old male with past medical history of hypertension hyperlipidemia, mild intermittent asthma admitted to ICU for acute hypoxic respiratory failure secondary to ARDS secondary to COVID-19 pneumonia. Patient reported that he did not get vaccinated for COVID-19 pneumonia. Assessment and plan: #Acute hypoxic respiratory failure due to ARDS due to COVID-19 pneumonia #Small right apical pneumothorax /pneumomedistinum/subcutaneous emphysema #Abnormal LFTs with the right scapular pain biliary pathology -Currently saturating 94% on BiPAP 14/8 FiO2 100% -At high risk for intubation -Did not tolerate high flow oxygen; or proning -Afebrile, WBC 24K, low procalcitonin, urine Legionella, MRSA nares, bacterial antigens, blood cultures negative so far -Currently on remdesivir protocol for 5 days and dexamethasone 6 mg IV daily -DuoNeb nebulizations every 6 hours and budesonide twice daily -Initially was on ceftriaxone azithromycin for 3 days and started on Vancomycin and Zosyn (day 2) -Received 1 dose Tocilizumab on 04/11/2021 -ESR ,CRP downtrending-monitor inflammatory markers every 48 hours -Monitor apical pneumothorax, pneumomediastinum and subcutaneous emphysema with serial x-rays and will plan for chest tube if apical pneumothorax is worsening -Ideally would like to reduce positive pressure but patient desaturates immediately if taken off BiPAP -Urine output and renal parameters are good; monitor input and output to keep even to slight net negative -deranged LFTs -likely due to COVID-19 pneumonia-currently improving -With right scapular pain-I would like to obtain abdominal ultrasound to rule out hepatobiliary pathology -On Lipitor 20 p.o. daily for hyperlipidemia-hold if LFTs get worsen -Sugars well controlled with scale coverage -Famotidine for GI prophylaxis and history of GERD -On therapeutic dose of Lovenox for DVT prophylaxis - i will recommend to cut down to prophylactic dose -Monitor platelets Medical condition and management plan discussed with patient and he verbalized understanding and agreed with the plan. Recommendations conveyed to hospitalist covering the patient Consult Attestations Medical Necessity Statement: Acute hypoxic respiratory failure secondary to ARDS due to COVID-19 pneumonia requiring 100% FiO2 on BiPAP and at risk for intubation. Needs close ICU monitoring Time Spent in Patient Care: (>than 50% of time spent in counselling and/or direct pt care on unit). Critical Care Time: The high probability of a clinically significant, sudden or life threatening deterioration of the patient's [respiratory] system(s) required my full and direct attention, intervention and personal management. The critical care time is as shown. 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
--- NOTE | 2021-04-15 20:54 | XRR_ITS ---
PROCEDURE INFORMATION: Exam: XR Chest Exam date and time: 04/15/2021 8:54 PM Age: 51 years old Clinical indication: Shortness of breath; Additional info: Follow-up for pneumothorax TECHNIQUE: Imaging protocol: XR of the chest. Views: 1 view. COMPARISON: 1. CR XR chest 1V portable [id number] 04/15/2021 2:18 PM 2. CR XR chest 1V portable [id number] 04/15/2021 5:[address] chest wo con [id number] 04/15/2021 2:24 AM 4. CR XR chest 1V portable [id number] 04/14/2021 4:16 PM FINDINGS: Tubes, catheters and devices: Apparent right central venous catheter tip in the region of the axillary vein again seen. Lungs: Small right apical pneumothorax with 8.1 mm separation between the lung and pleura again seen similar to prior exam. Bilateral largely mid to lower lung field atelectasis versus infiltrate increased compared to prior exam. Pleural spaces: See Lungs finding. Heart/Mediastinum: Unremarkable. No cardiomegaly. Bones/joints: Unremarkable. Soft tissues: Subcutaneous emphysema over the chest. XR/XR chest 1V portable [id number] IMPRESSION: 1. Small right apical pneumothorax with 8.1 mm separation between the lung and pleura again seen similar to prior exam. 2. Bilateral largely mid to lower lung field atelectasis versus infiltrate increased compared to prior exam. 3. Subcutaneous emphysema over the chest.
[2021-04-15] MEDS: alum-mag-hydroxide-sime 30 mL UDC 15 ML PO (21:12)
[2021-04-16] VITALS (70 sets, daily range): BP systolic 106–149; BP diastolic 74–101; PULSE 83–126; RESP 17–47; TEMP 36.7–37.1; O2SAT 72–97
[2021-04-16] MEDS: vancomycin 1,500 MG/300 ML PIGGYBACK 150 MG IV ×3 (00:06→17:12)
[2021-04-16] MEDS: dexmedetomidine 400 MCG in sodium chloride 0.9% (100 ml) 100 ML 16.75 MCG IV ×2 (00:06→05:27)
--- NOTE | 2021-04-16 00:19 | PC.NURSE ---
VANC TROUGH Lab called to assess need for 0000 vancomycin trough. Vancomycin not due until 0900 this AM, pharmacy okay'd nurse to change vancomycin trough order to 0800.
[2021-04-16 02:29] LABS: Glucose Point of Care 150 mg/dL (70-110)
[2021-04-16] MEDS: piperacillin-tazobactam 3.375 GM in sodium chloride 0.9% (plus) 50 ML IV ×3 (03:49→19:39)
[2021-04-16] MEDS: LORazepam 2 mg/mL INJ 1 mL IVP ×5 (03:49→21:35)
[2021-04-16] MEDS: ipratropium-albuterol 3 mL Neb INHALATION ×6 (04:10→23:47)
[2021-04-16 05:08] LABS: Basophils # 0.1 10^3/uL (0.0-0.1); Basophils % 0.4 %; Eosinophils # 0.1 10^3/uL (0.0-0.8); Eosinophils % 0.4 %; Hematocrit 44.2 % (42.0-52.0); Hemoglobin 14.5 g/dL (11.7-16.6); Lymphocytes # 0.6 10^3/uL (0.8-4.8); Lymphocytes % 2.7 %; Mean Corpuscular HGB Conc 32.8 g/dL (30.0-36.0); Mean Corpuscular Hemoglobin 31.2 pg (28.0-34.0); Mean Corpuscular Volume 95.1 fL (80-94); Mean Platelet Volume 10.6 fL (7.4-10.4); Monocytes # 0.4 10^3/uL (0.2-0.9); Monocytes % 1.7 %; Neutrophils # 20.97 10^3/uL (1.8-7.7); Neutrophils % 93.2 %; Nucleated Red Blood Cells % 0 %; Platelet Count 114 10^3/cmm (130-400); Red Blood Count 4.65 10^6/uL (4.1-5.3); Red Cell Distribution Width 12.1 % (12.1-15.1); White Blood Count 22.5 10^3/uL (4.0-10.0)
[2021-04-16 05:30] LABS: Alanine Aminotransferase 49 U/L (0-41); Alkaline Phosphatase 146 IU/L (40-130); Aspartate Amino Transferase 44 U/L (0-40); Blood Urea Nitrogen 19 mg/dL (6-20); Calcium 7.8 mg/dL (8.5-10.5); Carbon Dioxide 22 mmol/L (22-29); Chloride 103 mmol/L (98-107); Globulin 2.8 g/dL (1.3-4.6); Glomerular Filtration Rate 119.9 mL/min (90-130); Glucose 191 mg/dL (65-115); Osmolality Calculated 287 mOsm/kg (285-295); Sodium 135 mmol/L (136-145); Total Bilirubin 0.7 mg/dL (0.15-1.2); Total Protein 5.8 g/dL (6.6-8.7)
[2021-04-16 05:45] LABS: Ferritin 1375 ng/mL (30-400)
[2021-04-16] MEDS: enoxaparin 40 mg/0.4 mL Syringe SUBCUT ×2 (05:57→18:39)
[2021-04-16 08:06] LABS: Glucose Point of Care 162 mg/dL (70-110)
[2021-04-16] MEDS: budesonide 0.5 mg/2 mL Neb INHALATION ×2 (08:13→20:17)
--- NOTE | 2021-04-16 08:15 | XR_ITS ---
WS: [id number] Portable AP upright chest, 04/16/2021 Clinical Data: PTX Comparison: Portable chest, 04/15/2021 Findings: The bilateral patchy opacities have diminished slightly. There is still a small, 5% right a pical pneumothorax. There is subcutaneous emphysema in the supraclavicular regions. Heart is normal. Monitor leads are on the chest wall. There is a catheter ending in the right axilla. XR/XR chest 1V portable [id number] Impression: Slight decrease in bilateral pulmonary opacities.
--- NOTE | 2021-04-16 08:23 | PC.CHAP ---
Pastoral Care Encounter/Spiritual Assessment Type of Contact [] Declined coppersmith helper visit [] Patient/Family/Request visit [] Outpatient visit [] Follow-up visit [] Physician referral [] Code/Alert [x] Routine visit [] Staff referral [] Actively dying [] Patient sleeping [] Family support [] [] Out of room [] Palliative care [] [x] Receiving care in room [] Pre-surgical visit [] Trauma [] Long length of stay [x] ICU visit [x] Other: ventilator Relational/Emotional Strength [] Patient feels connected with others/family/visitors/staff [] Distress [] Loneliness/isolation [] Abandonment Spirituality of Patient [] Person of Neela [] Attends Hindu of their Neela [] Believes in Prayer [] Reads Bible or Sikhism materials [] There are Spiritual issues to be addressed Glass [employer]her [employer] Interventions [x] Prayer [] Active listening [] Non-anxious presence [] Spiritual/emotional support [] Crisis/trauma care [] Spiritual counseling [] Bereavement support [] Provided bereavement packet [] Provided Bible/devotional materials [] Provided toy/stuffed animal, coloring book to patient or family member [] Provided Communion [] Anointing/Caraway [] Salvation [x] Completed spiritual assessment [] Other: Impact on Illness or Injury [] Angry [] Fearful [] Anxious [] Often cries [] Exhaustion [] Unable to work [] Unable to attend buddhist [] Unable to walk/stand [] Unable to read [] Unable to drive [] Unable to eat/drink [] Unable to sleep [] Unable to be with family [] Patient intubated [] Other: Summary Time spent with patient
[2021-04-16] MEDS: ferrous gluconate 324 mg Tablet PO (08:31)
[2021-04-16] MEDS: benzonatate 100 mg Capsule PO (08:31)
[2021-04-16] MEDS: ascorbic acid 500 mg Tablet 1000 MG PO (08:31)
[2021-04-16] MEDS: famotidine 20 mg Tablet PO (08:31)
[2021-04-16] MEDS: zinc gluconate 50 mg Tablet PO (08:31)
[2021-04-16] MEDS: atorvastatin 40 mg Tablet 10 MG PO (08:32)
--- NOTE | 2021-04-16 09:15 | PC.NUTR ---
Nutrition assessment completed for 5day LOS. Pt noted to be not eating for past 2 days (0% X 6 recorded meals). Spoke with Dr. Story regarding nutritional plan for pt. He states that he will make the pt NPO at this time, with no current plan for nutrition support. Recommend to resume oral diet with Ensure Plus supplement when pt is safely able to consume oral diet. Recommend consider nutrition support if unable to consume po intake with 5-7 days, if consistent with plan of care. See RD assessment for further details.
[2021-04-16] MEDS: morphine 4 mg/mL SDV 1 mL 1 MG IVP ×4 (10:05→19:40)
[2021-04-16] MEDS: dexmedetomidine 400 MCG in sodium chloride 0.9% (100 ml) 100 ML 19.54 MCG IV (10:59)
[2021-04-16 11:11] LABS: Glucose Point of Care 138 mg/dL (70-110)
[2021-04-16 11:16] LABS: ABG PCO2 40.2 mmHg (35-45); ABG PH Result 7.39 (7.35-7.45); Alveolar-Arterial Oxygen Gradi 72.3 mmHg (5-10); Arterial Blood Gas Hematocrit 46.2 % (42-52); Base Excess ABG -0.4 mmol/L (-2.0-2.0); Blood Gas Allen Test Pos; Blood Gas Operator Identificat CAK; Blood Gas Sample Site Radial, left; Blood Gas Sample Type Arterial; Carboxyhemoglobin 0.9 %THgb (0.4-20.1); HCO3 ABG 24.5 mmol/L (22-26); HGB O2 Sat 92.8 % (95-100); Ionized Calcium Level - ABG 1.2 mmol/L (1.1-1.4); Methemoglobin 0.8 % (0.4-1.5); Oxygen Device BIPAP; Oxygen Saturation ABG 94.4; PO2 ABG 71.4 mmHg (80.0-100.0); Potassium Level - ABG 4.9 mmol/L (3.5-5.0); Total Hemoglobin 15.1 g/dL (14-18)
--- NOTE | 2021-04-16 13:34 | PM.PN ---
Subjective Subjective: Interval history: Patient seen at bedside today morning Appears somewhat comfortable compared to yesterday on Precedex 0.7 gtt. On BiPAP 14/7 FiO2 95% Chest x-ray showed small 5% right apical pneumothorax unchanged and diminishing bilateral patchy opacities Labs and imaging reviewed and pertinent findings incorporated in the assessment and plan Medications: Reviewed: Yes Vitals/I&O/Wt Last Vital Signs Temp 98.3 F 04/16/21 10:00 Pulse 104 H 04/16/21 12:00 Resp 20 H 04/16/21 12:38 BP 120/84 04/16/21 12:00 Pulse Ox 87 L 04/16/21 12:00 04/15/21 04/16/21 04/16/21 22:59 06:59 14:59 Intake Total 904 / 1558 1257.613 / 2815.613 665.568 / 665.568 Output Total 1850 / 1850 1850 / 3700 Balance -946 / -292 -592.387 / -884.387 665.568 / 665.568 Weight last 48 hrs Weight 254 lb 9.6 oz Weight 260 lb 6.4 oz Physical Exam Narrative: EXAM NARRATIVE: General: alert, NAD HEENT: conj clear, EOMI, PERRL, mmm, Neck: supple, no meningismus Heme: no cervical LAP Pulmonary: CTAB, no wheezing, rhonchi, crackles Cardiovascular: rrr, nl s1s2, no mrg Abdomen: soft, nt, nd, no r/g, bs+ Extremities: pulses +, no edema, no c/c : no CVA tenderness Skin: intact, no rash MSK: no back or neck pain Neurologic: grossly intact Urinary Catheter Management^: Taylor: Cath Placed During This Visit: yes Reason for Continuing Indwelling Catheter: Accurate Measurement of Urinary Output in Critically Ill Patients Urinary Catheter Date of Insertion: 04/14/21 Urinary Catheter Time of Insertion: 12:41 Data : 04/16/21 04:29 04/16/21 04:29 Other Labs: Laboratory Results WBC 22.5 10^3/uL (4.0-10.0) H 04/16/21 04:29 Corrected WBC Cancelled 04/11/21 14:50 RBC 4.65 10^6/uL (4.1-5.3) 04/16/21 04:29 Hgb 14.5 g/dL (11.7-16.6) 04/16/21 04:29 Hct 44.2 % (42.0-52.0) 04/16/21 04:29 MCV 95.1 fL (80-94) H 04/16/21 04:29 MCH 31.2 pg (28.0-34.0) 04/16/21 04:29 MCHC 32.8 g/dL (30.0-36.0) 04/16/21 04:29 RDW 12.1 % (12.1-15.1) 04/16/21 04:29 Plt Count 114 10^3/cmm (130-400) L 04/16/21 04:29 MPV 10.6 fL (7.4-10.4) H 04/16/21 04:29 Gran % Cancelled 04/11/21 14:50 Neut % (Auto) 93.2 % 04/16/21 04:29 Lymph % (Auto) 2.7 % 04/16/21 04:29 Brown % (Auto) 1.7 % 04/16/21 04:29 Eos % (Auto) 0.4 % 04/16/21 04:29 Baso % (Auto) 0.4 % 04/16/21 04:29 Neut # (Auto) 20.97 10^3/uL (1.8-7.7) H 04/16/21 04:29 Lymph # (Auto) 0.6 10^3/uL (0.8-4.8) L 04/16/21 04:29 Brown # (Auto) 0.4 10^3/uL (0.2-0.9) 04/16/21 04:29 Eos # (Auto) 0.1 10^3/uL (0.0-0.8) 04/16/21 04:29 Baso # (Auto) 0.1 10^3/uL (0.0-0.1) 04/16/21 04:29 Absolute Gran (auto) Cancelled 04/11/21 14:50 Nucleated RBC % (auto) 0 % 04/16/21 04:29 Nucleated RBCs # 0.0 /100WBC 04/16/21 04:29 ESR 4 mm/hr (0-10) 04/15/21 04:35 PT 19.70 SECONDS (12.1-14.9) H 04/14/21 08:50 INR 1.63 (0.8-1.2) H 04/14/21 08:50 APTT 30.6 SECONDS (23.9-36.7) 04/14/21 08:50 Fibrinogen 53 mg/dL (174-498) L 04/14/21 04:30 D-Dimer >= 20.00 ug/mIFEU (0-0.59) H 04/14/21 04:30 Specimen Type Arterial 04/16/21 11:05 Sample Site Radial, left 04/16/21 11:05 ABG pH 7.39 (7.35-7.45) 04/16/21 11:05 ABG pCO2 40.2 mmHg (35-45) 04/16/21 11:05 ABG pO2 71.4 mmHg (80.0-100.0) L 04/16/21 11:05 ABG HCO3 24.5 mmol/L (22-26) 04/16/21 11:05 ABG O2 Saturation 94.4 04/16/21 11:05 ABG Base Excess -0.4 mmol/L (-2.0-2.0) 04/16/21 11:05 Killian Test Pos 04/16/21 11:05 A-a O2 Gradient 72.3 mmHg (5-10) H 04/16/21 11:05 Hematocrit 46.2 % (42-52) 04/16/21 11:05 Hgb O2 Saturation 92.8 % (95-100) L 04/16/21 11:05 Carboxyhemoglobin 0.9 %THgb (0.4-20.1) 04/16/21 11:05 Methemoglobin 0.8 % (0.4-1.5) 04/16/21 11:05 Total Hemoglobin 15.1 g/dL (14-18) 04/16/21 11:05 Sodium 136.0 mmol/L (131-143) 04/16/21 11:05 Potassium 4.9 mmol/L (3.5-5.0) 04/16/21 11:05 Glucose 142.0 mg/dL (70-115) H 04/16/21 11:05 Ionized Calcium 1.2 mmol/L (1.1-1.4) 04/16/21 11:05 O2 Delivery Device Bipap 04/16/21 11:05 O2 Liters/Min 6.0 % 04/11/21 14:12 FiO2 95.0 % 04/16/21 11:05 Block Piler ID Cak 04/16/21 11:05 Sodium 135 mmol/L (136-145) L 04/16/21 04:29 Potassium 5.0 mmol/L (3.5-5.1) 04/16/21 04:29 Chloride 103 mmol/L (98-107) 04/16/21 04:29 Carbon Dioxide 22 mmol/L (22-29) 04/16/21 04:29 Anion Gap 15.0 (5-19) 04/16/21 04:29 BUN 19 mg/dL (6-20) 04/16/21 04:29 Creatinine 0.7 mg/dL (0.7-1.2) 04/16/21 04:29 GFR Calculation 119.9 mL/min (90-130) 04/16/21 04:29 Glucose 191 mg/dL (65-115) H 04/16/21 04:29 POC Glucose 138 mg/dL (70-110) H 04/16/21 10:52 Estimat Average Glucose 128 04/12/21 06:33 Hemoglobin A1c 6.1 % (4.0-6.0) H 04/12/21 06:33 Calculated Osmolality 287 mOsm/kg (285-295) 04/16/21 04:29 Lactic Acid 1.4 mmol/L (0.5-2.2) 04/11/21 14:50 Calcium 7.8 mg/dL (8.5-10.5) L 04/16/21 04:29 Phosphorus 2.1 mg/dL (2.5-4.5) L 04/12/21 06:33 Magnesium 2.0 mg/dL (1.7-2.3) 04/12/21 06:33 Iron 15 ug/dL (59-158) L 04/11/21 14:50 TIBC 177 mcg/dl 04/11/21 14:50 % Saturation 8.4 % (20-50) L 04/11/21 14:50 Unsat Iron Binding 162 ug/dL (112-347) 04/11/21 14:50 Ferritin 1375 ng/mL (30-400) H 04/16/21 04:29 Total Bilirubin 0.7 mg/dL (0.15-1.2) 04/16/21 04:29 AST 44 U/L (0-40) H 04/16/21 04:29 ALT 49 U/L (0-41) H 04/16/21 04:29 Alkaline Phosphatase 146 IU/L (40-130) H 04/16/21 04:29 Lactate Dehydrogenase 1264 U/L (135-225) H 04/14/21 04:30 Creatine Kinase 197 U/L (39-308) 04/14/21 04:30 C-Reactive Protein 13.0 mg/L (0.0-4.9) H 04/16/21 04:29 NT-Pro-B Natriuret Pep 173 pg/mL (0-125) H 04/11/21 14:50 Total Protein 5.8 g/dL (6.6-8.7) L 04/16/21 04:29 Albumin 3.0 g/dL (3.5-5.2) L 04/16/21 04:29 Globulin 2.8 g/dL (1.3-4.6) 04/16/21 04:29 Procalcitonin 0.06 ng/mL (0-0.5) 04/13/21 05:49 TSH 0.42 uIU/mL (0.27-4.20) 04/11/21 14:50 Urine Color Yellow (Yellow) 04/11/21 20:45 Urine Appearance Clear (CLEAR) 04/11/21 20:45 Urine pH 5 (5-7) 04/11/21 20:45 Ur Specific [place] 1.005 (1.005-1.030) 04/11/21 20:45 Urine Protein 1+ (Negative) H 04/11/21 20:45 Urine Glucose (UA) Trace (Normal) H 04/11/21 20:45 Urine Ketones Negative (Negative) 04/11/21 20:45 Urine Blood 2+ (Negative) H 04/11/21 20:45 Urine Nitrate Negative (Negative) 04/11/21 20:45 Urine Bilirubin Neg (Negative) 04/11/21 20:45 Urine Urobilinogen Norm mg/dL (Negative) 04/11/21 20:45 Ur Leukocyte Esterase Negative (Negative) 04/11/21 20:45 Urine RBC 5-10 /hpf (0-2) H 04/11/21 20:45 Urine WBC 0-4 /hpf (0-5) H 04/11/21 20:45 Ur Squamous Epith Cells 0-4 /hpf (0-5) H 04/11/21 20:45 Amorphous Sediment Not Reportable 04/11/21 20:45 Urine Bacteria Trace /hpf (NONE) 04/11/21 20:45 Vancomycin Trough 13.0 ug/mL (10-15) 04/16/21 08:00 Impressions Chest CTA 04/11/21 15:29 IMPRESSION: 1. Negative for pulmonary embolism. 2. Widespread bilateral airspace disease. 3. Commonly reported imaging features of COVID-19 pneumonia are present. Other processes such as influenza pneumonia and organizing pneumonia, as can be seen with drug toxicity and connective tissue disease, can cause a similar imaging pattern. (Reference: [place]) REFERENCES: [place]rell Lynch, et al., Radiological Society of [place] Expert Consensus Statement on Reporting Chest CT Findings Related to COVID-19. Endorsed by the Society of Thoracic Radiology, the [place], and RSNA. Published January 16, 2020. Radiation Dose CTDIVOL = (mGy): DLP = 615.51 (mGy-cm) Chest CT 04/14/21 20:56 IMPRESSION: Small right pneumothorax estimated at 10%. Extensive bilateral pulmonary infiltrates are again noted with some newly developing areas of consolidation. Pneumomediastinum. Cholelithiasis. Radiation Dose CTDIVOL = (mGy): DLP = 1069.88 (mGy-cm) ADDENDUM: 04/15/21 0442 Pneumothorax findings called to ordering physician. Radiation Dose CTDIVOL = (mGy): DLP = 1069.88 (mGy-cm) Chest X-Ray 04/16/21 08:15 Impression: Slight decrease in bilateral pulmonary opacities. Abdomen Ultrasound 04/16/21 20:58 IMPRESSION: 1. Technically difficult abdominal ultrasound evaluation due to body habitus and dyspnea. 2. Cholelithiasis. Single stone at the gallbladder neck. No evidence for acute cholecystitis. 3. Hepatosplenomegaly with hepatic steatosis. 4. Simple RIGHT renal cyst. A&P Assessment and plan (1) Acute respiratory failure due to COVID-19: Status: Acute (2) ARDS (adult respiratory distress syndrome): Status: Acute (3) Pneumomediastinum: Status: Acute (4) Pneumothorax: Status: Acute Qualifiers: Pneumothorax type: spontaneous, secondary Qualified Code(s): J93.12 - Secondary spontaneous pneumothorax (5) Subcutaneous emphysema: Status: Acute Qualifiers: Encounter type: initial encounter Qualified Code(s): T79.7XXA - Traumatic subcutaneous emphysema, initial encounter (6) Hypertension: Status: Acute Qualifiers: Hypertension type: essential hypertension Qualified Code(s): I10 - Essential (primary) hypertension (7) Mild intermittent asthma: Status: Chronic Qualifiers: Asthma complication type: uncomplicated Qualified Code(s): J45.20 - Mild intermittent asthma, uncomplicated (8) Abnormal LFTs: Status: Acute Overall: 51-year-old male with past medical history of hypertension hyperlipidemia, mild intermittent asthma admitted to ICU for acute hypoxic respiratory failure secondary to ARDS secondary to COVID-19 pneumonia. Patient reported that he did not get vaccinated for COVID-19 pneumonia. Assessment and plan: #Acute hypoxic respiratory failure due to ARDS due to COVID-19 pneumonia #Small right apical pneumothorax /pneumomedistinum/subcutaneous emphysema #Abnormal LFTs with the right scapular pain biliary pathology-Single stone at gallbladder neck on ultrasound with no evidence of cholecystitis -Currently saturating 94% on BiPAP 14/7 FiO2 95% -At high risk for intubation -Did not tolerate high flow oxygen; or proning -Afebrile, WBC 22.5K, low procalcitonin, urine Legionella, MRSA nares, bacterial antigens, blood cultures negative so far -S/p remdesivir protocol for 5 days and currently on dexamethasone 6 mg IV daily -DuoNeb nebulizations every 6 hours and budesonide twice daily -Initially was on ceftriaxone azithromycin for 3 days and started on Vancomycin and Zosyn (day 2) -Received 1 dose Tocilizumab on 04/11/2021 -ESR ,CRP downtrending-monitor inflammatory markers every 48 hours -Monitor apical pneumothorax, pneumomediastinum and subcutaneous emphysema with serial x-rays and will plan for chest tube if apical pneumothorax is worsening -Chest x-ray today morning showed stable 5% right apical pneumothorax and decreasing bilateral opacities -Ideally would like to reduce positive pressure but patient desaturates immediately if taken off BiPAP -Urine output and renal parameters are good; monitor input and output to keep even to slight net negative -deranged LFTs -likely due to COVID-19 pneumonia-currently improving -With right scapular pain-obtained abdominal ultrasound which showed single stone at gallbladder neck on ultrasound with no evidence of cholecystitis -On Lipitor 20 p.o. daily for hyperlipidemia-hold if LFTs get worsen -Sugars well controlled with scale coverage -Famotidine for GI prophylaxis and history of GERD -Lovenox 40 units twice daily for DVT prophylaxis -Monitor platelets Medical condition and management plan discussed with patient and he verbalized understanding and agreed with the plan. Recommendations conveyed to hospitalist covering the patient Attestations Medical Necessity Statement*: Needs close ICU monitoring for acute hypoxic respiratory failure secondary to ARDS due to COVID-19 pneumonia on high oxygen requirement-possible intubation Time Spent in Patient Care: Greater than 35 minutes (>than 50% of time spent in counselling and/or direct pt care on unit). Critical Care Time: Critical Care Time (min): 45 Coding Level of Care Code Established Pt Acute Admitting Supervisor for Chg Fwd Patient Type Established History Comprehensive Exam Comprehensive Medical Decision Making High Complexity Diagnoses Acute respiratory failure due to COVID-19 U07.1; J96.00 ARDS (adult respiratory distress syndrome) J80 Pneumomediastinum J98.2 Pneumothorax J93.12 Pneumothorax type: spontaneous, secondary Subcutaneous emphysema T79.7XXA Encounter type: initial encounter Hypertension I10 Hypertension type: essential hypertension Mild intermittent asthma J45.20 Asthma complication type: uncomplicated Abnormal LFTs R94.5 Time Spent (min) 45
--- NOTE | 2021-04-16 15:12 | P.PN_ITS ---
Subjective Subjective: Interval history: Patient seen at bedside today morning Continues to be critically ill, extremely tachypenic. On BiPAP 14/7 FiO2 95% Chest x-ray showed small 5% right apical pneumothorax unchanged and diminishing bilateral patchy opacities Medications: Reviewed: Yes Vitals/I&O/Wt Last Vital Signs Temp 98.3 F 04/16/21 14:00 Pulse 96 04/16/21 14:31 Resp 20 H 04/16/21 14:00 BP 120/84 04/16/21 14:00 Pulse Ox 90 04/16/21 14:31 04/16/21 04/16/21 04/16/21 06:59 14:59 22:59 Intake Total 1257.613 / 2815.613 665.568 / 665.568 Output Total 1850 / 3700 Balance -592.387 / -884.387 665.568 / 665.568 Weight last 48 hrs Weight 115.485 kg Weight 118.115 kg Physical Exam Const: COMMON NORMALS: patient oriented x3 HENMT: COMMON NORMALS: normocephalic and atraumatic HEAD & SCALP: n ormocephalic and atraumatic Resp: OTHER: Bilateral diminished breath sounds. Cardio: COMMON NORMALS: regular rate, regular rhythm, S1 normal heart sound present, S2 normal heart sound present, No gallops present (Cardio), No murmurs present (Cardio), No rub (Cardio) and Peripheral pulses 2+ throughout RATE: regular rate RHYTHM: regular rhythm HEART SOUNDS: S1 normal heart sound present and S2 normal heart sound present PERIPHERAL PULSES: Peripheral pulses 2+ throughout GI: COMMON NORMALS: Normal to inspection, nondistended, normoactive bowel sounds present and no masses AUSCULTATION: Yes normoactive bowel sounds RECTAL EXAM: Yes deferred Extremity: COMMON NORMALS: no clubbing, cyanosis or edema and no pedal edema Neuro: COMMON NORMALS: patient oriented x3 Urinary Catheter Management^: Taylor: Cath Placed During This Visit: yes Reason for Continuing Indwelling Catheter: Accurate Measurement of Urinary Out put in Critically Ill Patients Urinary Catheter Date of Insertion: 04/14/21 Urinary Catheter Time of Insertion: 12:41 Data : 04/16/21 04:29 04/16/21 04:29 A&P Assessment and plan (1) ARDS (adult respiratory distress syndrome): Status: Acute (2) COVID-19: Status: Acute (3) Hyperlipidemia: Status: Chronic Qualifiers: Hyperlipidemia type: mixed hyperlipidemia Qualified Code(s): E78.2 - Mixed hyperlipidemia (4) Hypertension: Status: Acute Qualifiers: Hypertension type: essential hypertension Qualified Code(s): I10 - Essential (primary) hypertension (5) Subcutaneous emphysema: Status: Acute Qualifiers: Encounter type: initial encounter Qualified Code(s): T79.7XXA - Traumatic subcutaneous emphysema, initial encounter (6) Pneumothorax: Status: Acute Qualifiers: Pneumothorax type: spontaneous, secondary Qualified Code(s): J93.12 - Secondary spontaneous pneumothorax (7) Pneumomediastinum: Status: Acute Additional A&P Information Ac Hypoxic r/f 2/2 Severe ARDS due to COVID-19 pneumonia: Procalcitonin, MRSA swab, Legionella and bacterial antigen negative. CT angio chest:Negative for pulmonary embolism. Widespread bilateral airspace disease. Repeat CT chest without contrast 04/14 :Small right pneumothorax estimated at 10%.Pneumomediastinum. Soft tissue emphysema most conspicuous in the neck and milder at upper thorax. Monitor serial chest x-ray: Ultrasound abdomen was done for deranged LFTs :Showed single stone at gallbladder neck on ultrasound with no evidence of cholecystitis. Blood culture: Negative Dexamethasone 6 mg IV daily. Remdesivir protocol for 5 days. Vitamin C, zinc. Tessalon Perles. DuoNebs every 6 hour, budesonide twice daily. Pulmonary toilet incentive spirometry and flutter valve. Initially on ceftriaxone and azithromycin. Ceftriaxone was discontinued on . He was started on vancomycin and Zosyn on . Given his worsening respiratory function there was need to broaden his antibiotic coverage. Received 1 dose of Actemra on April 11. Initially on Lovenox therapeutic anticoagulation. Changed to Lovenox 40 subcu every 12 daily. Lasix as needed on Precedex drip. Ativan 2 mg IV every 4 hours as needed Morphine 1 mg IV every 2 hours as needed. Monitor inflammatory markers including CRP, D-dimer, ferritin, fibrinogen. Patient has failed to tolerate self proning. Continue to be on noninvasive ventilation (BiPAP/heated high flow oxygen through nasal cannula) Appreciate Datar Input Hypertension: Goal blood pressure less than 140/90 mmHg with mean over 65. Blood pressures currently soft. For now hold off on to home dose of ibesartan. Hyperlipidemia: Continue with home dose. Full code status. Regular diet. DVT PPX: On Lovenox. Family has been updated Attestations Medical Necessity Statement*: Patient needs to be in hospital for the managem ent of severe ARDS. Coding Level of Care Code Acute Manager Human Resources for [facility] Fwd Diagnoses ARDS (adult respiratory distress syndrome) J80 COVID-19 U07.1 Hyperlipidemia E78.2 Hyperlipidemia type: mixed hyperlipidemia Hypertension I10 Hypertension type: essential hypertension Subcutaneous emphysema T79.7XXA Encounter type: initial encounter Pneumothorax J93.12 Pneumothorax type: spontaneous, secondary Pneumomediastinum J98.2
[2021-04-16] MEDS: dexmedetomidine 400 MCG in sodium chloride 0.9% (100 ml) 100 ML 27.92 MCG IV (15:37)
[2021-04-16 17:00] LABS: Glucose Point of Care 127 mg/dL (70-110)
[2021-04-16] MEDS: dexamethasone 4 mg/mL INJ 6 MG IVP (17:14)
--- NOTE | 2021-04-16 18:26 | PC.NURSE ---
Shift summary Pt has been pretty anxious throughout the day. He has had to be redirected and reminded to not take his bipap off. He has several times taken his bipap mask off and desatted to the low 80's and high 70's. He has been given ativan and morphine as needed. His precedex is at 1mcg/kg/hr per Dr eduardo. He has had 2100 out in urine from his yepez.
[2021-04-16] MEDS: dexmedetomidine 400 MCG in sodium chloride 0.9% (100 ml) 100 ML 33.5 MCG IV (20:00)
[2021-04-16 20:01] LABS: Glucose Point of Care 166 mg/dL (70-110)
--- NOTE | 2021-04-16 20:07 | PC.NURSE ---
Received bed side shift report from off going nurse. Pt's plan of care reviewed. Pt is resting in bed bed. Pt is currently on isolation precautions for Covid 19. Pt was trying to pull his bi-pap off when entering the room. Pt was able to be reoriented and stopped pulling at the bi-pap. Pt is alert and oriented and able to make his own decisions at this time. Pt appears to be struggling to breathe. Respirations are labored with respirations up in the 40s and sating 88-92% on 95% Fio2 on bi-pap. Pt was educated to try to slow his breathing and take deeper breaths. Even when asleep pt continues to struggle to breathe. Increased precedex to 1.2 mcg/kg/hr. Respiratory in room starting breathing treatment. Bed in lowest and locked position, call light within reach, x's 2 rails up. Will continue to monitor pt.
--- NOTE | 2021-04-16 20:58 | US_ITS ---
WS: [id number] Complete ABDOMINAL ULTRASOUND HISTORY: abnormal LFTs COMPARISON: None available. Liver: 18.5 cm in length. Liver is mildly enlarged with very coarse echotexture. Increased attenuatio n throughout the liver. The entire liver is not well visualized due to the increased density. No disc rete mass identified. No bile duct dilatation. Gallbladder: Normally distended. There is a stone at the gallbladder neck measuring 1.8 cm. No perich olecystic fluid. Gallbladder wall thickness: 0.2 cm. Pancreas: Completely obscured by bowel gas. CBD: 0.3 cm. Right kidney: 12.0 cm x 5.4 cm x 5.7 cm. No hydronephrosis. Simple cyst in the upper pole measures 2 .3 x 1.3 x 2.1 cm. No solid mass or obstruction. Left kidney: 13.4 cm x 4.0 cm x 4.7 cm. No mass, cortical thickening or hydronephrosis. Spleen: Mildly enlarged at 13.3 cm. No mass. Aorta and IVC are well visualized. No ascites. US/US abdomen complete* 00700 IMPRESSION: 1. Technically difficult abdominal ultrasound evaluation due to body habitus a nd dyspnea. 2. Cholelithiasis. Single stone at the gallbladder neck. No evidence for acute cholecystitis. 3. Hepatosplenomegaly with hepatic steatosis. 4. Simple RIGHT renal cyst.
--- NOTE | 2021-04-16 21:40 | PC.NURSE ---
Dr. Story called and checked on the patient. Dr. Story was made aware of pt's respiratory status. Dr. Story suggested placing pt on full bi-pap mask. Pt was educated by respiratory and agreed to try the mask. Pt tolerated the mask for about 15 minutes before coming extremely agitated and kept tearing the mask off. Respiratory tried numerous times to replace the mask but pt kept pulling the mask off as soon as respiratory placed the mask. Pt 02 kept dipping down in the 60s at this time. Pt agreed to go back to the smaller mask. Once placed, pt tolerated well and o2 climbed back up in the 90s. Pt was also given 2mg IV ativan to help him rest. Pt is currently resting at this time. Bed in lowest and locked position, call light within reach, x's 2 rails up. Will continue to monitor pt.
--- NOTE | 2021-04-16 22:45 | XRR_ITS ---
PROCEDURE INFORMATION: Exam: XR Chest Exam date and time: 04/16/2021 10:45 PM Age: 51 years old Clinical indication: Condition or disease; Other: Monitor pnuemothorax; Additional info: Monitor pnuemothorax/pre intubation. TECHNIQUE: Imaging protocol: XR of the chest. Views: 1 view. COMPARISON: CR XR chest 1V portable [id number] 04/16/2021 8:37 AM FINDINGS: Tubes, catheters and devices: The right PICC line is stable in position with the tip in the right axillary region. Lungs: Bilateral lung opacities have moderately worsened. Pleural spaces: No pneumothorax is visualized. Heart/Mediastinum: The heart is normal in size. Pneumomediastinum is again seen. Bones/joints: Unremarkable. XR/XR chest 1V portable [id number] IMPRESSION: Mild worsening of the lung opacities. Pneumomediastinum is appreciated. No pneumothorax is detected.
[2021-04-16] MEDS: propofol 1,000 MG/100 ML INJ 20.79 MG IV (23:00)
--- NOTE | 2021-04-16 23:34 | XRR_ITS ---
PROCEDURE INFORMATION: Exam: XR Chest Exam date and time: 04/16/2021 11:34 PM Age: 51 years old Clinical indication: Device placement; Ett placement (vent status); Patient HX: Check S/P intubation. TECHNIQUE: Imaging protocol: XR of the chest. Views: 1 view. COMPARISON: CR (CHEST, ) 04/16/2021 10:55 PM FINDINGS: An ETT has been placed which terminates 3 cm above the pascual. A nasogastric tube has been also been inserted (tip not imaged). The lung opacities have slightly improved. No other significant change. XR/XR chest 1V portable [id number] IMPRESSION: Interval placement of an ETT and nasogastric tube.
[2021-04-16] MEDS: labetalol 5 mg/mL SDV 20mL 10 MG IVP (23:35)
[2021-04-17] VITALS (38 sets, daily range): BP systolic 91–166; BP diastolic 58–101; PULSE 108–125; RESP 19–26; TEMP 36.7–36.9; O2SAT 75–96; BMI 32.2
--- NOTE | 2021-04-17 00:08 | PM.ACPR ---
Procedure/Consent Time out: Time Out Performed: Yes Consent: Consent for Procedure: Consent obtained from other (indicate) () Additional Consent Information: Plan was made to intubate the patient because of worsening hypoxia and tachypnea on BiPAP Combination Building Inspector was notified as well Preintubation chest x-ray did not reveal worsening of pneumothorax Acute Procedures Epistaxis Control: Time out performed: Yes Intubation: Time out performed: Yes Sedative: etomidate Mg given: 20 Paralytic: rocuronium Mg given: 120 Laryngoscope: fiber optic video scope Assist device used: fiber optic device ET tube size: 8 ET tube uncuffed: Yes Tube secured depth (cm): 28 Tube secured location: teeth Tube placement confirmation: visualized tube passing through cords, equal breath sounds bilaterally, no breath sounds over epigastrium, confirmation by capnometry and color change noted Patient tolerated procedure: well Intubation complications: none Additional comments: Patient was intubated because of failure on BiPAP he was saturating 85 to 88% Tachypneic in 40s Consent was taken from his Etomidate and rocuronium doses were given Gleidoscope was used to visualize vocal cords after giving sedatives and paralytics, endotracheal tube size 8 was passed through vocal cords on first attempt without any complications, tube was secured at 24 cm which was advanced to 28 cm after chest x-ray Post intubation patient became tachypneic and tachycardic and hypertensive Blood pressure 180/119 mmHg, heart rate 150, O2 saturations 75% He was given labetalol 10 mg IV push Fentanyl 100 mcg was given x1 as patient was biting his tube and stacking his breath Decision was made to start fentanyl along propofol and paralyzed him with Nimbex use bis monitoring Left radial arterial line placed as well under ultrasound guidance
[2021-04-17 00:09] LABS: ABG PCO2 57.9 mmHg (35-45); ABG PH Result 7.25 (7.35-7.45); Arterial Blood Gas Hematocrit 49.5 % (42-52); Base Excess ABG -3.4 mmol/L (-2.0-2.0); Blood Gas Allen Test Pos; Blood Gas Sample Type Arterial; HCO3 ABG 25.1 mmol/L (22-26); HGB O2 Sat 70.3 % (95-100); Ionized Calcium Level - ABG 1.1 mmol/L (1.1-1.4); Methemoglobin 0.6 % (0.4-1.5); Oxygen Saturation ABG 71.5; PO2 ABG 45.5 mmHg (80.0-100.0); Potassium Level - ABG 4.9 mmol/L (3.5-5.0); Total Hemoglobin 16.1 g/dL (14-18)
--- NOTE | 2021-04-17 00:13 | PM.ACPR ---
Acute Procedures Arterial Line: Time out performed: Yes Size (Gauge): 16 Technique used: direct puncture technique Post-Procedure: dry sterile dressing placed Patient tolerated procedure: well Complications: none Site: left Additional comments: Site was prepped under sterile environment Ultrasound was used to locate radial arterial pulsation Left radial arterial line placed under ultrasound guidance Indication: Post intubation Estimated blood loss 2 to 3 mL Transducer set applied
[2021-04-17] MEDS: cisatracurium 100 MG in sodium chloride 0.9% 50 ML IV (00:50)
[2021-04-17] MEDS: rocuronium 10 mg/mL INJ 5mL 120 MG IV (01:12)
[2021-04-17] MEDS: fentaNYL 50 mcg/mL INJ 2mL 100 MCG IVP (01:15)
[2021-04-17] MEDS: sodium chloride 0.9% 1,000 ML 30 ML IV (01:17)
[2021-04-17] MEDS: vancomycin 1,500 MG/300 ML PIGGYBACK 250 MG IV (01:18)
[2021-04-17] MEDS: dexmedetomidine 400 MCG in sodium chloride 0.9% (100 ml) 100 ML 27.92 MCG IV (01:22)
[2021-04-17] MEDS: propofol 1,000 MG/100 ML INJ 20.79 MG IV (01:29)
[2021-04-17 02:33] LABS: ABG PCO2 39.6 mmHg (35-45); ABG PH Result 7.34 (7.35-7.45); Arterial Blood Gas Hematocrit 43.5 % (42-52); Base Excess ABG -4.4 mmol/L (-2.0-2.0); Blood Gas Sample Type Arterial; HCO3 ABG 21.1 mmol/L (22-26); PO2 ABG 63.9 mmHg (80.0-100.0)
[2021-04-17 02:34] LABS: Blood Gas Operator Identificat JB; Oxygen Device VENT
[2021-04-17 02:36] LABS: Alveolar-Arterial Oxygen Gradi 77.8 mmHg (5-10); Oxygen Device VENT
[2021-04-17 02:37] LABS: Blood Gas Operator Identificat JB
[2021-04-17] MEDS: ipratropium-albuterol 3 mL Neb INHALATION ×3 (03:03→11:46)
[2021-04-17 05:04] LABS: Basophils % 0.1 %; Eosinophils # 0.2 10^3/uL (0.0-0.8); Eosinophils % 0.7 %; Hematocrit 45.4 % (42.0-52.0); Hemoglobin 14.8 g/dL (11.7-16.6); Lymphocytes # 0.7 10^3/uL (0.8-4.8); Lymphocytes % 2.2 %; Mean Corpuscular HGB Conc 32.6 g/dL (30.0-36.0); Mean Corpuscular Hemoglobin 31.2 pg (28.0-34.0); Mean Corpuscular Volume 95.6 fL (80-94); Mean Platelet Volume 10.8 fL (7.4-10.4); Monocytes # 0.6 10^3/uL (0.2-0.9); Neutrophils # 27.51 10^3/uL (1.8-7.7); Neutrophils % 90.2 %; Nucleated Red Blood Cells % 0 %; Platelet Count 137 10^3/cmm (130-400); Red Blood Count 4.75 10^6/uL (4.1-5.3); Red Cell Distribution Width 12.3 % (12.1-15.1)
[2021-04-17 05:09] LABS: ABG PCO2 59.7 mmHg (35-45); ABG PH Result 7.25 (7.35-7.45); Arterial Blood Gas Hematocrit 48.5 % (42-52); Base Excess ABG -2.8 mmol/L (-2.0-2.0); Blood Gas Operator Identificat JB; Blood Gas Sample Type Arterial; HCO3 ABG 25.9 mmol/L (22-26); Oxygen Device VENT; PO2 ABG 58.9 mmHg (80.0-100.0)
[2021-04-17] MEDS: propofol 1,000 MG/100 ML INJ 27.72 MG IV ×5 (05:15→17:16)
[2021-04-17] MEDS: piperacillin-tazobactam 3.375 GM in sodium chloride 0.9% (plus) 50 ML IV ×2 (05:15→11:12)
[2021-04-17 05:16] LABS: C Reactive Protein 15.8 mg/L (0.0-4.9)
[2021-04-17 05:19] LABS: Alanine Aminotransferase 46 U/L (0-41); Albumin Level 3.4 g/dL (3.5-5.2); Alkaline Phosphatase 185 IU/L (40-130); Anion Gap 15.6 (5-19); Aspartate Amino Transferase 53 U/L (0-40); Blood Urea Nitrogen 29 mg/dL (6-20); Calcium 7.9 mg/dL (8.5-10.5); Carbon Dioxide 25 mmol/L (22-29); Chloride 100 mmol/L (98-107); Globulin 2.5 g/dL (1.3-4.6); Glomerular Filtration Rate 89.7 mL/min (90-130); Glucose 170 mg/dL (65-115); Osmolality Calculated 290 mOsm/kg (285-295); Potassium 5.6 mmol/L (3.5-5.1); Sodium 135 mmol/L (136-145); Total Bilirubin 0.8 mg/dL (0.15-1.2); Total Protein 5.9 g/dL (6.6-8.7)
[2021-04-17 05:23] LABS: Slide Review Slide Review Perform
[2021-04-17 05:34] LABS: White Blood Count 30.5 10^3/uL (4.0-10.0)
[2021-04-17 05:35] LABS: Ferritin 1450 ng/mL (30-400)
--- NOTE | 2021-04-17 06:14 | PC.NURSE ---
Train of 4 0200-Bilateral eyebrows 4/4 response. Pt continues to breath over the vent. 0215-Bilateral eyebrows 4/4 response. Pt continues to breath over the vent. 0230-Bilateral eyebrows 4/4 response. Pt continues to breath over the vent. 0245-Bilateral eyebrows 4/4 response. Pt continues to breath over the vent. 0300-Bilateral eyebrows 4/4 response. Pt continues to breath over the vent. 0315-Bilateral eyebrows 4/4 response. Pt continues to breath over the vent. 0330-Bilateral eyebrows 4/4 response. Pt continues to breath over the vent. 0345-Bilateral eyebrows 4/4 response. Pt continues to breath over the vent. 0400-4/4 response noted in left eyebrow. 0/4 response noted in right eyebrow. Pt is no longer breathing above the vent at this time.
[2021-04-17 06:31] LABS: ABG PCO2 55.5 mmHg (35-45); ABG PH Result 7.26 (7.35-7.45); Arterial Blood Gas Hematocrit 47.7 % (42-52); Base Excess ABG -3.5 mmol/L (-2.0-2.0); Blood Gas Sample Site Not specified; Blood Gas Sample Type Arterial; HCO3 ABG 24.6 mmol/L (22-26); PO2 ABG 76.2 mmHg (80.0-100.0)
[2021-04-17 06:32] LABS: Blood Gas Operator Identificat JB; Blood Gas Tidal Volume 0.53; Oxygen Device VENT
[2021-04-17] MEDS: enoxaparin 40 mg/0.4 mL Syringe SUBCUT (06:33)
[2021-04-17] MEDS: zinc gluconate 50 mg Tablet PO (08:05)
[2021-04-17] MEDS: ascorbic acid 500 mg Tablet 1000 MG PO (08:05)
[2021-04-17] MEDS: famotidine 20 mg Tablet PO (08:05)
[2021-04-17] MEDS: atorvastatin 40 mg Tablet 10 MG PO (08:05)
[2021-04-17] MEDS: dextrose 50% syringe 50 mL 25 ML IVP (08:08)
[2021-04-17] MEDS: vancomycin 1,500 MG/300 ML PIGGYBACK 150 MG IV (08:10)
[2021-04-17] MEDS: budesonide 0.5 mg/2 mL Neb INHALATION (08:22)
[2021-04-17] MEDS: insulin regular-human 5 UNIT in SYRINGE 1 EACH 1 UNIT IVP (09:12)
[2021-04-17] MEDS: cisatracurium 100 MG in sodium chloride 0.9% 50 ML 19.4 MG IV ×2 (09:16→14:42)
--- NOTE | 2021-04-17 09:38 | P.PN_ITS ---
Subjective Subjective: Interval history: -Patient seen at bedside today morning -Patient got intubated overnight for persistent desaturation to 70s-100% on BiPAP -Currently sedated and paralyzed with fentanyl 100 MCG per hour cisatracurium GTT -Labs and imaging reviewed and persistent findings incorporated in assessment Medications: Reviewed: Yes Vitals/I&O/Wt Last Vital Signs Temp 98.1 F 04/17/21 01:30 Pulse 116 H 04/17/21 08:31 Resp 20 H 04/17/21 08:31 BP 98/58 04/17/21 06:00 Pulse Ox 94 04/17/21 08:31 04/16/21 04/17/21 04/17/21 22:59 06:59 14:59 Intake Total 454 / 1211.518 503.701 / 1715.219 326.195 / 326.195 Output Total 2100 / 2100 160 / 2260 Balance -1646 / -888.482 343.701 / -544.781 326.195 / 326.195 Weight last 48 hrs Weight 251 lb 2 oz Weight 254 lb 9.6 oz Physical Exam Narrative: EXAM NARRATIVE: PHYSICAL EXAM: General: lying in bed, sedated and intubated. 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 SKIN: no rash LDA: #Right arm PICC line #A-line; 04/17/2021 Urinary Catheter Management^: Taylor: Cath Placed During This Visit: yes Reason for Continuing Indwelling Catheter: Accurate Measurement of Urinary Output in Critically Ill Patients Urinary Catheter Date of Insertion: 04/14/21 Urinary Catheter Time of Insertion: 12:41 Data : 04/17/21 04:45 04/17/21 04:45 Other Labs: Laboratory Results WBC 30.5 10^3/uL (4.0-10.0) H* 04/17/21 04:45 Corrected WBC Cancelled 04/11/21 14:50 RBC 4.75 10^6/uL (4.1-5.3) 04/17/21 04:45 Hgb 14.8 g/dL (11.7-16.6) 04/17/21 04:45 Hct 45.4 % (42.0-52.0) 04/17/21 04:45 MCV 95.6 fL (80-94) H 04/17/21 04:45 MCH 31.2 pg (28.0-34.0) 04/17/21 04:45 MCHC 32.6 g/dL (30.0-36.0) 04/17/21 04:45 RDW 12.3 % (12.1-15.1) 04/17/21 04:45 Plt Count 137 10^3/cmm (130-400) 04/17/21 04:45 MPV 10.8 fL (7.4-10.4) H 04/17/21 04:45 Gran % Cancelled 04/11/21 14:50 Neut % (Auto) 90.2 % 04/17/21 04:45 Lymph % (Auto) 2.2 % 04/17/21 04:45 [place] % (Auto) 2.0 % 04/17/21 04:45 Eos % (Auto) 0.7 % 04/17/21 04:45 Baso % (Auto) 0.1 % 04/17/21 04:45 Neut # (Auto) 27.51 10^3/uL (1.8-7.7) H 04/17/21 04:45 Lymph # (Auto) 0.7 10^3/uL (0.8-4.8) L 04/17/21 04:45 [place] # (Auto) 0.6 10^3/uL (0.2-0.9) 04/17/21 04:45 Eos # (Auto) 0.2 10^3/uL (0.0-0.8) 04/17/21 04:45 Baso # (Auto) 0.0 10^3/uL (0.0-0.1) 04/17/21 04:45 Absolute Gran (auto) Cancelled 04/11/21 14:50 Nucleated RBC % (auto) 0 % 04/17/21 04:45 Nucleated RBCs # 0.0 /100WBC 04/17/21 04:45 ESR 4 mm/hr (0-10) 04/15/21 04:35 PT 19.70 SECONDS (12.1-14.9) H 04/14/21 08:50 INR 1.63 (0.8-1.2) H 04/14/21 08:50 APTT 30.6 SECONDS (23.9-36.7) 04/14/21 08:50 Fibrinogen 53 mg/dL (174-498) L 04/14/21 04:30 D-Dimer >= 20.00 ug/mIFEU (0-0.59) H 04/14/21 04:30 Specimen Type Arterial 04/17/21 06:18 Sample Site Not specified 04/17/21 06:18 ABG pH 7.26 (7.35-7.45) L 04/17/21 06:18 ABG pCO2 55.5 mmHg (35-45) H 04/17/21 06:18 ABG pO2 76.2 mmHg (80.0-100.0) L 04/17/21 06:18 ABG HCO3 24.6 mmol/L (22-26) 04/17/21 06:18 ABG O2 Saturation 71.5 04/17/21 00:00 ABG Base Excess -3.5 mmol/L (-2.0-2.0) L 04/17/21 06:18 [place] Test N/a 04/17/21 06:18 A-a O2 Gradient 77.8 mmHg (5-10) H 04/17/21 00:00 Hematocrit 47.7 % (42-52) 04/17/21 06:18 Hgb O2 Saturation 70.3 % (95-100) L 04/17/21 00:00 Carboxyhemoglobin 1.0 %THgb (0.4-20.1) 04/17/21 00:00 Methemoglobin 0.6 % (0.4-1.5) 04/17/21 00:00 Total Hemoglobin 16.1 g/dL (14-18) 04/17/21 00:00 Sodium 136.0 mmol/L (131-143) 04/17/21 00:00 Potassium 4.9 mmol/L (3.5-5.0) 04/17/21 00:00 Glucose 210.0 mg/dL (70-115) H 04/17/21 00:00 Ionized Calcium 1.1 mmol/L (1.1-1.4) 04/17/21 00:00 O2 Delivery Device Vent 04/17/21 06:18 O2 Liters/Min 6.0 % 04/11/21 14:12 FiO2 100.0 % 04/17/21 06:18 Tidal Volume 0.53 04/17/21 06:18 PEEP 12.0 cmH20 04/17/21 06:18 Chin Strap Maker ID Har[place] 04/17/21 06:18 Sodium 135 mmol/L (136-145) L 04/17/21 04:45 Potassium 5.6 mmol/L (3.5-5.1) H 04/17/21 04:45 Chloride 100 mmol/L (98-107) 04/17/21 04:45 Carbon Dioxide 25 mmol/L (22-29) 04/17/21 04:45 Anion Gap 15.6 (5-19) 04/17/21 04:45 BUN 29 mg/dL (6-20) H 04/17/21 04:45 Creatinine 0.9 mg/dL (0.7-1.2) 04/17/21 04:45 GFR Calculation 89.7 mL/min (90-130) L 04/17/21 04:45 Glucose 170 mg/dL (65-115) H 04/17/21 04:45 POC Glucose 166 mg/dL (70-110) H 04/16/21 19:55 Estimat Average Glucose 128 04/12/21 06:33 Hemoglobin A1c 6.1 % (4.0-6.0) H 04/12/21 06:33 Calculated Osmolality 290 mOsm/kg (285-295) 04/17/21 04:45 Lactic Acid 1.4 mmol/L (0.5-2.2) 04/11/21 14:50 Calcium 7.9 mg/dL (8.5-10.5) L 04/17/21 04:45 Phosphorus 2.1 mg/dL (2.5-4.5) L 04/12/21 06:33 Magnesium 2.0 mg/dL (1.7-2.3) 04/12/21 06:33 Iron 15 ug/dL (59-158) L 04/11/21 14:50 TIBC 177 mcg/dl 04/11/21 14:50 % Saturation 8.4 % (20-50) L 04/11/21 14:50 Unsat Iron Binding 162 ug/dL (112-347) 04/11/21 14:50 Ferritin 1450 ng/mL (30-400) H 04/17/21 04:45 Total Bilirubin 0.8 mg/dL (0.15-1.2) 04/17/21 04:45 AST 53 U/L (0-40) H 04/17/21 04:45 ALT 46 U/L (0-41) H 04/17/21 04:45 Alkaline Phosphatase 185 IU/L (40-130) H 04/17/21 04:45 Lactate Dehydrogenase 1264 U/L (135-225) H 04/14/21 04:30 Creatine Kinase 197 U/L (39-308) 04/14/21 04:30 C-Reactive Protein 15.8 mg/L (0.0-4.9) H 04/17/21 04:45 NT-Pro-B Natriuret Pep 173 pg/mL (0-125) H 04/11/21 14:50 Total Protein 5.9 g/dL (6.6-8.7) L 04/17/21 04:45 Albumin 3.4 g/dL (3.5-5.2) L 04/17/21 04:45 Globulin 2.5 g/dL (1.3-4.6) 04/17/21 04:45 Procalcitonin 0.06 ng/mL (0-0.5) 04/13/21 05:49 TSH 0.42 uIU/mL (0.27-4.20) 04/11/21 14:50 Urine Color Yellow (Yellow) 04/11/21 20:45 Urine Appearance Clear (CLEAR) 04/11/21 20:45 Urine pH 5 (5-7) 04/11/21 20:45 Ur Specific [place] 1.005 (1.005-1.030) 04/11/21 20:45 Urine Protein 1+ (Negative) H 04/11/21 20:45 Urine Glucose (UA) Trace (Normal) H 04/11/21 20:45 Urine Ketones Negative (Negative) 04/11/21 20:45 Urine Blood 2+ (Negative) H 04/11/21 20:45 Urine Nitrate Negative (Negative) 04/11/21 20:45 Urine Bilirubin Neg (Negative) 04/11/21 20:45 Urine Urobilinogen Norm mg/dL (Negative) 04/11/21 20:45 Ur Leukocyte Esterase Negative (Negative) 04/11/21 20:45 Urine RBC 5-10 /hpf (0-2) H 04/11/21 20:45 Urine WBC 0-4 /hpf (0-5) H 04/11/21 20:45 Ur Squamous Epith Cells 0-4 /hpf (0-5) H 04/11/21 20:45 Amorphous Sediment Not Reportable 04/11/21 20:45 Urine Bacteria Trace /hpf (NONE) 04/11/21 20:45 Vancomycin Trough 13.0 ug/mL (10-15) 04/16/21 08:00 Impressions Chest CTA 04/11/21 15:29 IMPRESSION: 1. Negative for pulmonary embolism. 2. Widespread bilateral airspace disease. 3. Commonly reported imaging features of COVID-19 pneumonia are present. Other processes such as influenza pneumonia and organizing pneumonia, as can be seen with drug toxicity and connective tissue disease, can cause a similar imaging pattern. (Reference: [place]) REFERENCES: [place] Lynch, et al., Radiological Society of [place] Expert Consensus Statement on Reporting Chest CT Findings Related to COVID-19. Endorsed by the Society of Thoracic Radiology, the [place] [employer], and RSNA. Published January 16, 2020. Radiation Dose CTDIVOL = (mGy): DLP = 615.51 (mGy-cm) Chest CT 04/14/21 20:56 IMPRESSION: Small right pneumothorax estimated at 10%. Extensive bilateral pulmonary infiltrates are again noted with some newly developing areas of consolidation. Pneumomediastinum. Cholelithiasis. Radiation Dose CTDIVOL = (mGy): DLP = 1069.88 (mGy-cm) ADDENDUM: 04/15/21 0442 Pneumothorax findings called to ordering physician. Radiation Dose CTDIVOL = (mGy): DLP = 1069.88 (mGy-cm) Abdomen Ultrasound 04/16/21 20:58 IMPRESSION: 1. Technically difficult abdominal ultrasound evaluation due to body habitus and dyspnea. 2. Cholelithiasis. Single stone at the gallbladder neck. No evidence for acute cholecystitis. 3. Hepatosplenomegaly with hepatic steatosis. 4. Simple RIGHT renal cyst. Chest X-Ray 04/16/21 23:34 IMPRESSION: Interval placement of an ETT and nasogastric tube. Micro: Microbiology 04/11/21 22:19 Blood Culture - Final Blood NO GROWTH AFTER 5 DAYS 04/11/21 22:15 Blood Culture - Final Blood NO GROWTH AFTER 5 DAYS A&P Assessment and plan (1) Acute respiratory failure due to COVID-19: Status: Acute (2) ARDS (adult respiratory distress syndrome): Status: Acute (3) Pneumomediastinum: Status: Acute (4) Pneumothorax: Status: Acute Qualifiers: Pneumothorax type: spontaneous, secondary Qualified Code(s): J93.12 - Secondary spontaneous pneumothorax (5) Subcutaneous emphysema: Status: Acute Qualifiers: Encounter type: initial encounter Qualified Code(s): T79.7XXA - Traumatic subcutaneous emphysema, initial encounter (6) Hypertension: Status: Acute Qualifiers: Hypertension type: essential hypertension Qualified Code(s): I10 - Essential (primary) hypertension (7) Mild intermittent asthma: Status: Chronic Qualifiers: Asthma complication type: uncomplicated Qualified Code(s): J45.20 - Mild intermittent asthma, uncomplicated (8) Abnormal LFTs: Status: Acute Overall: 51-year-old male with past medical history of hypertension hyperlipidemia, mild intermittent asthma admitted to ICU for acute hypoxic respiratory failure secondary to ARDS secondary to COVID-19 pneumonia. Patient reported that he did not get vaccinated for COVID-19 pneumonia. Assessment and plan: #Acute hypoxic respiratory failure due to ARDS due to COVID-19 pneumonia #Small right apical pneumothorax /pneumomedistinum/subcutaneous emphysema #Abnormal LFTs with the right scapular pain biliary pathology-Single stone at gallbladder neck on ultrasound with no evidence of cholecystitis -ABG 7.2 6/55/36/24/90% on CMV 500/20/12/100% -Compliance 39 PIP 29; increased rate to 22 ABG improved to 7.3 2/41/100/21/97% -Did not tolerate high flow oxygen; or proning -Afebrile, WBC 30K, low procalcitonin, urine Legionella, MRSA nares, bacterial antigens, blood cultures negative so far -S/p remdesivir protocol for 5 days and currently on dexamethasone 6 mg IV daily -DuoNeb nebulizations every 6 hours and budesonide twice daily -Initially was on ceftriaxone azithromycin for 3 days and started on Vancomycin and Zosyn (day 3) -Received 1 dose Tocilizumab on 04/11/2021 -ESR ,CRP downtrending-monitor inflammatory markers every 48 hours -Monitor apical pneumothorax, pneumomediastinum and subcutaneous emphysema with serial x-rays and will plan for chest tube if apical pneumothorax is worsening -Chest x-ray today just prior to intubation yesterday night 04/16/2021 showed mild worsening of lung opacities pneumomediastinum is appreciated but no pneumothorax visualized -Urine output and renal parameters are good; monitor input and output to keep even to slight net negative; -deranged LFTs -likely due to COVID-19 pneumonia -With right scapular pain-obtained abdominal ultrasound which showed single stone at gallbladder neck on ultrasound with no evidence of cholecystitis -On Lipitor 20 p.o. daily for hyperlipidemia-hold if LFTs get worsen -Sugars well controlled with scale coverage -Famotidine for GI prophylaxis and history of GERD -Lovenox 40 units twice daily for DVT prophylaxis -Monitor platelets Patient is 51 years old with no significant comorbidities-would benefit from ECMO and possible lung transplant if no recovery -arrangements being made to transfer to higher center with ECMO and lung transplant Recommendations conveyed to hospitalist covering the patient Attestations Medical Necessity Statement*: Needs close ICU monitoring for acute hypoxic respiratory failure secondary to ARDS due to COVID-19 pneumonia intubated and 1 00% FiO2 Time Spent in Patient Care: Greater than 35 minutes (>than 50% of time spent in counselling and/or direct pt care on unit) . Critical Care Time: Critical Care Time (min): 45 Procedures Arterial Line Size (Gauge): 16 Coding Level of Care Code Established Pt Acute Sample Steamer for Chg Fwd Patient Type Established History Comprehensive Exam Comprehensive Medical Decision Making High Complexity Diagnoses Acute respiratory failure due to COVID-19 U07.1; J96.00 ARDS (adult respiratory distress syndrome) J80 Pneumomediastinum J98.2 Pneumothorax J93.12 Pneumothorax type: spontaneous, secondary Subcutaneous emphysema T79.7XXA Encounter type: initial encounter Hypertension I10 Hypertension type: essential hypertension Mild intermittent asthma J45.20 Asthma complication type: uncomplicated Abnormal LFTs R94.5 Time Spent (min) 45
[2021-04-17 11:36] LABS: Glucose Point of Care 157 mg/dL (70-110)
[2021-04-17 11:36] LABS: Glucose Point of Care 160 mg/dL (70-110)
[2021-04-17 13:44] LABS: ABG PCO2 41.6 mmHg (35-45); ABG PH Result 7.32 (7.35-7.45); Alveolar-Arterial Oxygen Gradi 72.6 mmHg (5-10); Arterial Blood Gas Hematocrit 43.6 % (42-52); Base Excess ABG -4.5 mmol/L (-2.0-2.0); Blood Gas Allen Test Pos; Blood Gas Operator Identificat BD; Blood Gas Sample Site ALINE; Blood Gas Sample Type Arterial; Blood Gas Tidal Volume 0.53; HCO3 ABG 21.4 mmol/L (22-26); HGB O2 Sat 96.1 % (95-100); Methemoglobin 0.9 % (0.4-1.5); Oxygen Device VENT; Oxygen Saturation ABG 97.9; Potassium Level - ABG 4.1 mmol/L (3.5-5.0); Total Hemoglobin 14.2 g/dL (14-18)
--- NOTE | 2021-04-17 13:55 | P.TS_ITS ---
Transfer Summary Providers Date of Admission: 04/11/21 17:19 Date of Discharge: 04/17/21 Attending Provider at Admission: Moises Cage MD Attending Provider at Transfer: Johan Story MD Primary Care Provider: NGUYEN Noe Anticipated Date of Transfer: Anticipated date of transfer: 04/17/21 Receiving Facility & Provider: Receiving Provider: [Dr. Corey Kearney] Receiving facility: [[facility]] Diagnoses at Discharge Discharge Diagnosis (1) Acute respiratory failure due to COVID-19: Status: Acute (2) ARDS (adult respiratory distress syndrome): Status: Acute (3) Pneumomediastinum: Status: Acute (4) Pneumothorax: Status: Acute Qualifiers: Pneumothorax type: spontaneous, secondary Qualified Code(s): J93.12 - Secondary spontaneous pneumothorax (5) Subcutaneous emphysema: Status: Acute Qualifiers: Encounter type: initial encounter Qualified Code(s): T79.7XXA - Traumatic subcutaneous emphysema, initial encounter (6) Hypertension: Status: Acute Qualifiers: Hypertension type: essential hypertension Qualified Code(s): I10 - Essential (primary) hypertension (7) Mild intermittent asthma: Status: Chronic Qualifiers: Asthma complication type: uncomplicated Qualified Code(s): J45.20 - Mild intermittent asthma, uncomplicated (8) Abnormal LFTs: Status: Acute Reason for Visit Reason for Visit: COVID +; LOW O2 SATS Hospital Course Hospital Course 51 year old male with past medical history of hypertension,presented to the ER with worsening shortness of breath, fever, cough of 5-day duration.He was diagnosed with COVID on 04/06, initially was at home, but due to worsening symptoms he came to the ER. Patient was admitted for the management of acute hypoxic respiratory failure secondary to Covid pneumonia. Patient has been managed as per the Covid protocol, pertinent management includes:CT angio chest:04/11 Negative for pulmonary embolism. Widespread bilateral airspace disease. CT chest without contrast 04/14 :Small right pneumothorax estimated at 10%.Pneumomediastinum. Soft tissue emphysema most conspicuous in the neck and milder at upper thorax. Most recent chest x-ray done on: 04/16: Bilateral lung opacities have moderately worsened. Pleural spaces: No pneumothorax is visualized. Pneumomediastinum is again seen.CV echo: ( 04/13 ) Normal left ventricular cavity size. Normal left ventricular systolic function. No regional wall motion abnormalities. Left ventricular ejection fraction is estimated at 60 %. There is no pericardial effusion.No significant valve abnormalities. Pulmonary artery systolic pressure is within normal limits. Right atrial pressure is around 5 mm of mercury. There are no prior echocardiogram studies to compare. Procalcitonin, MRSA swab, Legionella and bacterial antigen negative.Blood culture: Negative.Patient completed 5-day course of remdesivir, has been on dexamethasone IV since admission, has received 1 dose of Actemra on April 11.Vitamin C, zinc. DuoNebs .Has been on anticoagulation currently on Lovenox 40 subcu every 12 hours.Initially was on full anticoagulation. Serial inflammatory markers have been monitored. Patient has also been broad-spectrum antibiotics. Patient was kept on noninvasive ventilation initially (heated high flow/BiPAP) ,patient failed proning, unfortunately patient had to be intubated on 04/16, as he was extremely tachypneic and was desaturating significantly on BiPAP.Currently patient is intubated sedated and paralyzed. Most recent ABG: pH 7.32, PCO2 41, PO2:100, FiO2:100%. Patient is being transferred to [facility] for further management. Family has been updated, they agreed for the transfer. Physical Exam Const: COMMON NORMALS: patient oriented x3 HENMT: COMMON NORMALS: normocephalic and atraumatic HEAD & SCALP: normocephalic and atraumatic Resp: OTHER: Bilateral diminished breath sounds. Cardio: COMMON NORMALS: regular rate, regular rhythm, S1 normal heart sound present, S2 normal heart sound present, No gallops present (Cardio), No murmurs present (Cardio), No rub (Cardio) and Peripheral pulses 2+ throughout RATE: regular rate RHYTHM: regular rhythm HEART SOUNDS: S1 normal heart sound present and S2 normal heart sound present PERIPHERAL PULSES: Peripheral pul ses 2+ throughout GI: COMMON NORMALS: Normal to inspection, nondistended, normoactive bowel sounds present and no masses AUSCULTATION: Yes normoactive bowel sounds RECTAL EXAM: Yes deferred Extremity: COMMON NORMALS: no clubbing, cyanosis or edema and no pedal edema Neuro: COMMON NORMALS: patient oriented x3 Urinary Catheter Management^: Taylor: Cath Placed During This Visit: yes Reason for Continuing Indwelling Catheter: Accurate Measurement of Urinary Output in Critically Ill Patients Urinary Catheter Date of Insertion: 04/14/21 Urinary Catheter Time of Insertion: 12:41 TS Data Data Completed and Pending: Completed Studies During Hospitalization Category Date Time Status CT angio chest PE protcl [id number] Stat Cat Scan 04/11/21 15:[address] chest wo con 7 1250 Stat Cat Scan 04/14/21 20:56 Completed CXRP [XR chest 1V portable [id number]] R outine Exams 04/14/21 15:53 Completed XR chest 1V kirsten ble [id number] Routine Exams 04/15/21 05:00 Completed XR chest 1V kirsten ble [id number] Routine Exams 04/15/21 20:54 Completed XR chest 1V kirsten ble [id number] Routine Exams 04/16/21 23:34 Completed XR chest 1V kirsten ble [id number] Stat Exams 04/11/21 14:08 Completed XR chest 1V kirsten ble [id number] Stat Exams 04/15/21 13:59 Completed XR chest 1V kirsten ble [id number] Stat Exams 04/16/21 08:15 Completed XR chest 1V kirsten ble [id number] Stat Exams 04/16/21 22:45 Completed CV echo complete* [id number] Routine Ultrasound 04/13/21 06:00 Completed US abdomen comple te* [id number] Routine Ultrasound 04/16/21 20:58 Completed Pending at discharge Category Date Time Status ABG FULL [Arteria l Blood Gas Full] Routine Lab 04/17/21 00:00 Results Arterial Blood Ga s W/O Coox AM LABS Lab 04/17/21 04:57 Results Arterial Blood Ga s W/O Coox Stat Lab 04/17/21 02:02 Results Rapid Flu A&B Swa b [Influenza A&B b y IFA] Routine Lab 04/11/21 17:31 Uncollected Labs from last 24 hours 04/17/21 04/17/21 04/17/21 13:35 11:17 08:43 WBC RBC Hgb Hct MCV MCH MCHC RDW Plt Count MPV Neut % (Auto) Lymph % (Auto) [place] % (Auto) Eos % (Auto) Baso % (Auto) Neut # (Auto) Lymph # (Auto) [place] # (Auto) Eos # (Auto) Baso # (Auto) Nucleated RBC % (a uto) Nucleated RBCs # Specimen Type Arterial Sample Site Jody ABG pH 7.32 L ABG pCO2 41.6 ABG pO2 100.0 ABG HCO3 21.4 L ABG O2 Saturation 97.9 ABG Base Excess -4.5 L Killian Test Pos A-a O2 Gradient 72.6 H Hematocrit 43.6 Hgb O2 Saturation 96.1 Carboxyhemoglobin 1.0 Methemoglobin 0.9 Total Hemoglobin 14.2 Sodium 144.0 H Potassium 4.1 Glucose 132.0 H Ionized Calcium 1.0 L O2 Delivery Device Vent FiO2 100.0 Tidal Volume 0.53 PEEP 12.0 Passenger Train Braker ID Bd Chloride Carbon Dioxide Anion Gap BUN Creatinine GFR Calculation POC Glucose 160 H 157 H Calculated Osmolal ity Calcium Ferritin Total Bilirubin AST ALT Alkaline Phosphata se C-Reactive Protein Total Protein Albumin Globulin 04/17/21 04/17/21 04/17/21 06:18 04:57 04:45 WBC RBC Hgb Hct MCV MCH MCHC RDW Plt Count MPV Neut % (Auto) Lymph % (Auto) [place] % (Auto) Eos % (Auto) Baso % (Auto) Neut # (Auto) Lymph # (Auto) [place] # (Auto) Eos # (Auto) Baso # (Auto) Nucleated RBC % (a uto) Nucleated RBCs # Specimen Type Arterial Arterial Sample Site Not specified Pending ABG pH 7.26 L 7.25 L ABG pCO2 55.5 H 59.7 H ABG pO2 76.2 L 58.9 L ABG HCO3 24.6 25.9 ABG O2 Saturation ABG Base Excess -3.5 L -2.8 L Killian Test N/a N/a A-a O2 Gradient Hematocrit 47.7 48.5 Hgb O2 Saturation Carboxyhemoglobin Methemoglobin Total Hemoglobin Sodium Potassium Glucose Ionized Calcium O2 Delivery Device Vent Vent FiO2 100.0 100.0 Tidal Volume 0.53 PEEP 12.0 12.0 Passenger Train Braker ID Haris Haris Chloride Carbon Dioxide Anion Gap BUN Creatinine GFR Calculation POC Glucose Calculated Osmolal ity Calcium Ferritin Total Bilirubin AST ALT Alkaline Phosphata se C-Reactive Protein 15.8 H Total Protein Albumin Globulin 04/17/21 04/17/21 04/17/21 04:45 04:45 02:02 WBC 30.5 H* RBC 4.75 Hgb 14.8 Hct 45.4 MCV 95.6 H MCH 31.2 MCHC 32.6 RDW 12.3 Plt Count 137 MPV 10.8 H Neut % (Auto) 90.2 Lymph % (Auto) 2.2 [place] % (Auto) 2.0 Eos % (Auto) 0.7 Baso % (Auto) 0.1 Neut # (Auto) 27.51 H Lymph # (Auto) 0.7 L [place] # (Auto) 0.6 Eos # (Auto) 0.2 Baso # (Auto) 0.0 Nucleated RBC % (a uto) 0 Nucleated RBCs # 0.0 Specimen Type Arterial Sample Site Pending ABG pH 7.34 L ABG pCO2 39.6 ABG pO2 63.9 L ABG HCO3 21.1 L ABG O2 Saturation ABG Base Excess -4.4 L Killian Test N/a A-a O2 Gradient Hematocrit 43.5 Hgb O2 Saturation Carboxyhemoglobin Methemoglobin Total Hemoglobin Sodium 135 L Potassium 5.6 H Glucose 170 H Ionized Calcium O2 Delivery Device Vent FiO2 100.0 Tidal Volume PEEP 12.0 [address]enger Train Braker ID Haris Chloride 100 Carbon Dioxide 25 Anion Gap 15.6 BUN 29 H Creatinine 0.9 GFR Calculation 89.7 L POC Glucose Calculated Osmolal ity 290 Calcium 7.9 L Ferritin 1450 H Total Bilirubin 0.8 AST 53 H ALT 46 H Alkaline Phosphata se 185 H C-Reactive Protein Total Protein 5.9 L Albumin 3.4 L Globulin 2.5 04/17/21 04/16/21 04/16/21 00:00 19:55 16:54 WBC RBC Hgb Hct MCV MCH MCHC RDW Plt Count MPV Neut % (Auto) Lymph % (Auto) [place] % (Auto) Eos % (Auto) Baso % (Auto) Neut # (Auto) Lymph # (Auto) [place] # (Auto) Eos # (Auto) Baso # (Auto) Nucleated RBC % (a uto) Nucleated RBCs # Specimen Type Arterial Sample Site Pending ABG pH 7.25 L ABG pCO2 57.9 H ABG pO2 45.5 L ABG HCO3 25.1 ABG O2 Saturation 71.5 ABG Base Excess -3.4 L Killian Test Pos A-a O2 Gradient 77.8 H Hematocrit 49.5 Hgb O2 Saturation 70.3 L Carboxyhemoglobin 1.0 Methemoglobin 0.6 Total Hemoglobin 16.1 Sodium 136.0 Potassium 4.9 Glucose 210.0 H Ionized Calcium 1.1 O2 Delivery Device Vent FiO2 100.0 Tidal Volume 0.50 PEEP 12.0 Passenger Train Braker ID Haris Chloride Carbon Dioxide Anion Gap BUN Creatinine GFR Calculation POC Glucose 166 H 127 H Calculated Osmolal ity Calcium Ferritin Total Bilirubin AST ALT Alkaline Phosphata se C-Reactive Protein Total Protein Albumin Globulin Vitals: Last Vital Signs Temp 98.1 F 04/17/21 10:00 Pulse 122 H 04/17/21 12:00 Resp 22 H 04/17/21 12:00 BP 105/62 04/17/21 10:00 Pulse Ox 96 04/17/21 12:00 TS Medications Medications Home Medications omeprazole magnesium 20 mg tablet,delayed release 20 mg PO DAILY 02/12/20 [History Confirmed 04/13/21] nitroglycerin 0.4 mg sublingual tablet 0.4 mg SUBLINGUAL Q5M PRN 30 Days #30 tab 11/25/20 [Rx Confirmed 04/13/21] albuterol sulfate 2.5 mg INHALATION Q4H PRN 30 Days #75 ml 01/15/21 [Rx Confirmed 04/13/21] albuterol sulfate 90 mcg/actuation aerosol inhaler 2 puff INHALATION Q6H PRN 30 Days #6.7 gm 01/15/21 [Rx Confirmed 04/13/21] atorvastatin 10 mg tablet 10 mg PO DAILY 30 Days #30 tab 01/15/21 [Rx Confirmed 04/13/21] budesonide-formoterol HFA 160 mcg-4.5 mcg/actuation aerosol inhaler 2 puff INHALATION BID 30 Days #6 gm 01/15/21 [Rx Confirmed 04/13/21] cetirizine 10 mg tablet 10 mg PO DAILY 30 Days #30 tab 01/15/21 [Rx Confirmed 04/13/21] irbesartan 150 mg tablet 150 mg PO DAILY 30 Days #30 tab 01/15/21 [Rx Confirmed 04/13/21] meloxicam 15 mg tablet 15 mg PO DAILY 30 Days #30 tab 01/15/21 [Rx Confirmed 04/13/21] montelukast 10 mg tablet 10 mg PO DAILY 30 Days #30 tab 01/15/21 [Rx Confirmed 04/13/21] multivitamin 1 tab PO DAILY 04/09/21 [History Confirmed 04/13/21] Active Medications Acetaminophen (Acetaminophen 325 Mg Tablet) 650 mg PO Q6H PRN PRN Reason: Mild/Mod Pain Or Temp >/= 101 Last Admin: 04/13/21 22:45 Dose: 650 mg Documented by: Al Hydrox/Mg Hydrox/Simethicone (Myoa-Lnt-Emjknidte-Janee 30 Ml Udc) 15 ml PO Q4H PRN PRN Reason: INDIGESTION Last Admin: 04/15/21 21:12 Dose: 15 ml Documented by: Albuterol Sulfate (Albuterol 2.5 Mg/0.5 Ml Neb) 2.5 mg INHALATION Q4H.RESPIRATORY PRN PRN Reason: SHORTNESS OF BREATH Albuterol/Ipratropium (Ipratropium-Albuterol 3 Ml Neb) 3 ml INHALATION Q4H.RESPIRATORY ROCCO Last Admin: 04/17/21 11:46 Dose: 3 ml Documented by: Ascorbic Acid (Ascorbic Acid 500 Mg Tablet) 1,000 mg PO BID [facility] Last Admin: 04/17/21 08:05 Dose: 1,000 mg Documented by: Atorvastatin Calcium (Atorvastatin 40 Mg Tablet) 10 mg PO DAILY [facility] Last Admin: 04/17/21 08:05 Dose: 10 mg Documented by: Benzonatate (Benzonatate 100 Mg Capsule) 100 mg PO TID PRN PRN Reason: COUGH Bisacodyl (Bisacodyl 5 Mg Tablet) 10 mg PO DAILY PRN; Protocol PRN Reason: Constipation (see protocol) Budesonide (Budesonide 0.5 Mg/2 Ml Neb) 0.5 mg INHALATION BID [facility] Last Admin: 04/17/21 08:22 Dose: 0.5 mg Documented by: Dexamethasone (Dexamethasone 4 Mg/Ml Inj) 6 mg IVP Q24H [facility] Last Admin: 04/16/21 17:14 Dose: 6 mg Documented by: Dextrose (Dextrose 50% Syringe 50 Ml) 25 ml IVP ONCE PRN; Protocol PRN Reason: hypoglycemia protocol Dextrose (Dextrose 50% Syringe 50 Ml) 50 ml IVP PRN PRN; Protocol PRN Reason: hypoglycemia protocol Enoxaparin Sodium (Enoxaparin 40 Mg/0.4 Ml Syringe) 40 mg SUBCUT Q12H [facility] Last Admin: 04/17/21 06:33 Dose: 40 mg Documented by: Famotidine (Famotidine 20 Mg Tablet) 20 mg PO BID [facility] Last Admin: 04/17/21 08:05 Dose: 20 mg Documented by: Glucagon (Glucagon 1 Mg/Ml Inj 1 Ml) 1 mg IM ONCE PRN; Protocol PRN Reason: Adult Acute Hypoglycemia Prot. Dextrose (D5w) 500 mls @ 100 mls/hr IV ONCE PRN; Protocol PRN Reason: Adult Acute Hypoglycemia Prot Dexmedetomidine HCl 400 mcg/ (Sodium Chloride) 104 mls @ 0 mls/hr IV .Q0M ROCCO; Protocol Last Titration: 04/17/21 01:22 Dose: 0 mcg/kg/hr, 0 mls/hr Documented by: Piperacillin Sod/Tazobactam (Sod 3.375 gm/ Sodium Chloride) 50 mls @ 12.5 mls/hr IV Q8H [facility]CCO; Protocol Last Admin: 04/17/21 11:12 Dose: 12.5 mls/hr Documented by: Vancomycin/PEG/NADA/Lysine/Water (Vancocin) 1,500 mg in 300 mls @ 150 mls/hr IV Q8H ROCCO Last Infusion: 04/17/21 10:11 Dose: Infused Documented by: Propofol (Diprivan) 1,000 mg in 100 mls @ 0 mls/hr IV .Q0M ROCCO; Protocol Last Admin: 04/17/21 10:51 Dose: 40 mcg/kg/min, 27.72 mls/hr Documented by: Sodium Chloride (Sodium Chloride 0.9%) 1,000 mls @ 30 mls/hr IV .Q24H ROCCO Last Admin: 04/17/21 01:17 Dose: 30 mls/hr Documented by: Cisatracurium Besylate 100 mg/ (Sodium Chloride) 100 mls @ 0 mls/hr IV .Q0M ROCCO; Protocol Last Admin: 04/17/21 09:16 Dose: 2.8 mcg/kg/min, 19.4 mls/hr Documented by: Fentanyl 1,000 mcg/ Sodium (Chloride) 100 mls @ 0 mls/hr IV .Q0M ROCCO; Protocol Last Admin: 04/17/21 09:17 Dose: 100 mcg/hr, 10 mls/hr Documented by: Norepinephrine Bitartrate 4 mg (/ Dextrose) 254 mls @ 0 mls/hr IV .Q0M ROCCO; Protocol Last Admin: 04/17/21 00:30 Dose: 4 mcg/min, 15.24 mls/hr Documented by: Insulin Aspart (Insulin Aspart 100 Unit/1 Ml) 0 unit SUBCUT WM&BEDTIME [facility]; Protocol Last Admin: 04/17/21 11:32 Dose: Not Given Documented by: Lanolin (Lanolin Oint 7 Gm) 1 applic TOPICAL PRN PRN PRN Reason: DRYNESS Last Admin: 04/13/21 17:42 Dose: 1 applic Documented by: Lorazepam (Lorazepam 2 Mg/Ml Inj 1 Ml) 2 mg IVP Q4H PRN PRN Reason: ANXIETY Last Admin: 04/16/21 21:35 Dose: 2 mg Documented by: Morphine Sulfate (Morphine 4 Mg/Ml Sdv 1 Ml) 1 mg IVP Q2H PRN PRN Reason: SEVERE PAIN Last Admin: 04/16/21 19:40 Dose: 1 mg Documented by: Ondansetron HCl (Ondansetron 2 Mg/Ml Sdv 2 Ml) 4 mg IVP Q8H PRN PRN Reason: vomiting, or N/V if npo Last Admin: 04/12/21 08:34 Dose: 4 mg Documented by: Zinc Gluconate (Zinc Gluconate 50 Mg Tablet) 50 mg PO DAILY [facility] Last Admin: 04/17/21 08:05 Dose: 50 mg Documented by: Discharge Plan Discharge Patient Disposition: Home Condition: Stable Prescriptions: Continued montelukast [Singulair] 10 mg tablet 10 mg PO DAILY 30 Days Qty: 30 RF: 5 meloxicam 15 mg tablet 15 mg PO DAILY 30 Days Qty: 30 RF: 5 irbesartan 150 mg tablet 150 mg PO DAILY 30 Days Qty: 30 RF: 5 cetirizine [Zyrtec] 10 mg tablet 10 mg PO DAILY 30 Days Qty: 30 RF: 5 Symbicort 160-4.5 mcg/actuation HFA aerosol inhaler 2 puff INHALATION BID 30 Days Qty: 6 RF: 5 atorvastatin [Lipitor] 10 mg tablet 10 mg PO DAILY 30 Days Qty: 30 RF: 5 albuterol sulfate [ProAir HFA] 90 mcg/actuation HFA aerosol inhaler 2 puff INHALATION Q6H PRN (Reason: Shortness Of Breath) 30 Days Qty: 6.7 RF: 5 albuterol sulfate 2.5 mg /3 mL (0.083 %) solution for nebulization 2.5 mg INHALATION Q4H PRN (Reason: shortness of breath or wheezing) 30 Days Qty: 75 RF: 5 Prilosec OTC 20 mg tablet,delayed release (DR/EC) 20 mg PO DAILY RF: 0 nitroglycerin 0.4 mg tablet, sublingual 0.4 mg sublingual Q5M PRN (Reason: chest pain) 30 Days Qty: 30 RF: 2 multivitamin 1 tab PO DAILY RF: 0 Patient Instructions: Opioid Safety Transfer Attestations Time Spent in Transfer Care*: greater than 30 min Specific Discharge Activities: Specific discharge activities: educating patient, educating and/or supporting family/caregiver, discussing with pcp/other providers, discussing with porter sample case/social workers/dc planners, documenting/other paperwork and evaluating patient/reviewing data Status at Transfer: Cognitive status at transfer: cognitively intact , Behavioral status at transfer: cooperative , Quality Metrics Clinical Quality Measures: During this hospital stay, did patient experience: None Coding Level of Care Code 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 Fwd Diagnoses Acute respiratory failure due to COVID-19 U07.1; J96.00 ARDS (adult respiratory distress syndrome) J80 Pneumomediastinum J98.2 Pneumothorax J93.12 Pneumothorax type: spontaneous, secondary Subcutaneous emphysema T79.7XXA Encounter type: initial encounter Hypertension I10 Hypertension type: essential hypertension Mild intermittent asthma J45.20 Asthma complication type: uncomplicated Abnormal LFTs R94.5
--- NOTE | 2021-04-17 17:09 | PC.NURSE ---
pt transferred to into Air vac team, ROSITA Leonard and ROSITA Bell. Pt nimbex d/c'd and replaced with IVP VEC per Dr. Story orders. Pt. VSS at transfer.
== END 2021-04-17 17:11 | disposition short-term general hospital (02) | DRG 208 ==
LOC: ER 14:38 → ICU 17:34
PROVIDERS: Internal Medicine; Student in an Organized Health Care Education/Training Program; Admitting Provider Family Medicine; Emergency Provider Family Medicine; PCP Nurse Practitioner Family; Visit Provider Internal Medicine
DX: U07.1 COVID-19 (principal); J80 Acute respiratory distress syndrome; J12.82 Pneumonia due to coronavirus disease 2019; J93.83 Other pneumothorax; J98.2 Interstitial emphysema; J45.20 Mild intermittent asthma, uncomplicated; I10 Essential (primary) hypertension; K21.9 Gastro-esophageal reflux disease without esophagitis; M48.02 Spinal stenosis, cervical region; F41.9 Anxiety disorder, unspecified; E78.2 Mixed hyperlipidemia; R94.5 Abnormal results of liver function studies
CPT/HCPCS: 36415; 36416; 36569; 36592; 36600; 51702; 71045; 71250; 71275; 76700; 80051; 80053; 80202; 81001; 82330; 82550; 82728; 82803; 82805; 82962; 83036; 83540; 83550; 83605; 83615; 83735; 83880; 84100; 84145; 84443; 85025; 85378; 85384; 85610; 85651; 85730; 86140; 86403; 87040; 87449; 87641; 93005; 93306; 94002; 94640; 94660; 94799; 96361; 96365; 96367; 96372; 96375; 99285; C1751; J0456; J0696; J1100; J1650; J1815; J1940; J2060; J2270; J2405; J2543; J2704; J3010; J3262; J3370; J3490; J7030; J7050; J7626; Q9967